=== PATIENT | female | born 1955 | race African-American/Black ===

== ENCOUNTER 2019-10-05 23:17 | Inpatient (IN) | payer MEDICAID ==
[~2019-10-05] VITALS: Ht 167.6 cm; Wt 124.7 kg
[~2019-10-05 23:17] MED LIST: AML5T PO; FAM20T PO; FLUC100T34 PO; LISI30TA36 PO; METF-370 PO
[2019-10-05 23:53] LABS: Basophils # (auto) 0.1 uL; Eosinophils # (auto) 0.3 uL; Mean Corpuscular Hemoglobin 27.9 pg (28.0-32.0); Neutrophils # (auto) 6.7 uL
[2019-10-05 23:55] LABS: Basophils % (auto) 0.9 % (0.0-2.0); Eosinophils % (auto) 3.1 % (0.0-7.0); Hematocrit 58.5 % (36.0-46.0); Lymphocytes # (auto) 1.6 uL; Lymphocytes % (auto) 17.3 % (10.0-50.0); Mean Corpuscular Hgb Conc. 32.5 g/dL (32.0-36.0); Mean Corpuscular Volume 85.7 fL (80.0-100.0); Monocytes # (auto) 0.5 uL; Monocytes % (auto) 4.9 % (0.0-12.0); Neutrophils % (auto) 73.8 % (37.0-80.0); Nucleated Red Blood Cells % 0.2 %; Platelet Count (auto) 268 10^3/uL (140-450); Red Blood Cells 6.83 10^6/uL (4.0-5.20); Red Cell Distribution Width 18.6 % (11.8-14.3); White Blood Cell 9.1 10^3/uL (4.4-10.8)
[2019-10-05 23:59] LABS: Urine Bacteria FEW /hpf (None Seen); Urine Blood Negative /uL (Negative); Urine Specific Gravity 1.022 (1.001-1.035); Urine WBC 2 /hpf (0 - 5)
[2019-10-06] LABS: Alcohol, Urine < 3.0 mg/dL (0-5); Amphetamine Screen, Urine NEGATIVE (NEGATIVE); Barbiturate Scree,Urine NEGATIVE (NEGATIVE); Benzodiazephine Screen, Urine NEGATIVE (NEGATIVE); Cannabinoid Screen, Urine NEGATIVE (NEGATIVE); Cocaine Screen, Urine NEGATIVE (NEGATIVE); Opiate Scree,Urine NEGATIVE (NEGATIVE); Phencyclidine Screen, Urine NEGATIVE (NEGATIVE)
[2019-10-06 00:13] LABS: Albumin 3.2 g/dL (3.4-5.0); Calcium 8.4 mg/dL (8.5-10.1); Potassium 4.5 mmol/L (3.5-5.1)
[2019-10-06 00:15] LABS: Bilirubin, Total 0.8 mg/dL (0.2-1.0); Total Protein 7.2 g/dL (6.4-8.2)
[2019-10-06] MEDS ORDERED: cloNIDine HCL 0.1 MG TAB PO ONE ×2 (00:15)
[2019-10-06 00:17] LABS: BUN/Creatinine Ratio 9.6
[2019-10-06] MEDS ORDERED: SODIUM CHLORIDE 0.9% 1,000 ML IV ONE ×2 (00:45→03:30)
[2019-10-06] MEDS ORDERED: InsuLIN REG 1unit/0.01ml Soln (100units/ml) IV ONE ×2 (00:45→03:30)
[2019-10-06 01:08] LABS: INR 0.99 (0.9-1.15); Partial Thromboplastin Time 28.7 sec (23.64-32.05)
[2019-10-06] MEDS ORDERED: InsuLIN REG 1unit/0.01ml Soln (100units/ml) SC ONE (05:00)
[2019-10-06] MEDS ORDERED: ONDANSETRON HCL 4 MG/2 ML VIAL IV PRN (05:45)
[2019-10-06] MEDS ORDERED: ACETAMINOPHEN 325 MG TAB PO PRN (05:45)
[2019-10-06] MEDS ORDERED: DEXTROSE (50%) 50ML SYRG IV PRN (05:45)
[2019-10-06] MEDS ORDERED: DOCUSATE SOD 100 MG CAP PO PRN (05:45)
[2019-10-06] MEDS ORDERED: HYDROmorphone HCL 2 MG/ML VL IV PRN (05:45)
[2019-10-06] MEDS: SODIUM CHLORIDE 0.9% 1,000 ML IV SCH ×2 (06:18→15:39)
[2019-10-06 07:06] LABS: BUN/Creatinine Ratio 10.9; Calcium 8.2 mg/dL (8.5-10.1); Potassium 3.3 mmol/L (3.5-5.1)
[2019-10-06] MEDS: ACCU-CHEK COMFORT CURVE STRIP VI SCH ×5 (08:21→23:51)
[2019-10-06] MEDS: InsuLIN REG 1unit/0.01ml Soln (100units/ml) SC SCH ×5 (08:21→23:51)
--- NOTE | 2019-10-06 09:00 | NUR ---
MS admit from [facility] admitted to MS after SBAR received. Patient oriented to Katerine Burdick primary RN, unit, room, bed, and unit policies regarding patient care and visiting hours. Patient weighed by bed scale and encouraged to call if they need something. All questions and concerns addressed, patient verbalized understanding. Instructed patient on POC, fall precautions and to call for assistance as needed. patient verbalized understanding. Fall precautions in place with bed in lowest locked position with call light within reach. Velasco catheter in place is patent, draining clear yellow urine. Will continue to monitor q1hr & PRN.
[2019-10-06] MEDS: HYDROcodone-ACET 5/325MG TAB PO PRN ×2 (11:14→18:51)
[2019-10-06 12:40] VITALS: BP 138/95
--- NOTE | 2019-10-06 14:31 | NUR ---
Patient resting in bed with even and unlabored respirations, no distress noted. Fall precautions in place with call light within reach.
[2019-10-06] MEDS ORDERED: POTASSIUM CHL 20 Meq TABLET PO ONE (15:00)
--- NOTE | 2019-10-06 16:11 | NUR ---
Patient sitting at side of bed with both feet on the floor. Call light within reach. Instructed patient on fall precautions and to call for assistance. Patient verbalized understanding. Instructed patient to not ambulate without staff at bedside. Patient verbalized understanding.
--- NOTE | 2019-10-06 16:15 | NUR ---
Pagealphonse TOWNSEND RE: removal of Lincoln catheter Patient is requesting that the lincoln catheter be removed. Paged Dr. Ruano to notify. Addendum: 10/06/19 at 1723 by Katerine Burdick RN Paged incorrect doctor. Paged Dr. Longo at [phone] to notify of patient's request.
--- NOTE | 2019-10-06 16:24 | NUR ---
Received consult for Flatlock Sewing Machine Operator to speak with pt who has a history of Alcohol and cocaine. The pt stated that this behavior was a long time ago. She did not wish to speak about it and states she does not need any assistance with this issue.
[2019-10-06 17:00] VITALS: BP 147/96
--- NOTE | 2019-10-06 17:23 | NUR ---
Updated MD RE: lincoln catheter Updated Dr. Longo of patient's request for Lincoln catheter to be removed due to moderate discomfort. MD verbalized understanding. Order received and read back to verify.
--- NOTE | 2019-10-06 18:39 | NUR ---
Closing note patient resting in bed with even and unlabored respirations, no distress noted. Fall precautions in place with call light within reach.
--- NOTE | 2019-10-06 19:01 | NUR ---
Velasco catheter discontinued per MD order Velasco catheter discontinued with clean technique after deflation of catheter balloon. 200ml of clear yellow urine drained from catheter bag. Patient tolerated well. Bed in lowest locked position with call light within reach. BSC placed at bedside. Instructed the patient to call for assistance with transferring to BSC. Patient verbalized understanding. Patient A&Ox4.
--- NOTE | 2019-10-06 19:39 | NUR ---
Cared endorsed SHEREE Anderson.
[2019-10-06] MEDS ORDERED: amLODIPine BESYLATE 5 MG TAB PO ONE (20:30)
[2019-10-06] MEDS ORDERED: LOSARTAN POTASSIUM 50 MG TAB PO ONE (20:30)
[2019-10-06] MEDS: GABAPENTIN 100 MG CAP PO SCH (21:20)
[2019-10-06] MEDS: INSULIN LANTUS (GLARGINE) 1 /0.01ml (100units/ml) SC SCH (21:21)
[2019-10-06 22:00] VITALS: BP 121/83
[2019-10-06] MEDS ORDERED: ATORVASTATIN 20 MG TAB PO SCH (22:00)
[2019-10-07] MEDS: HYDROcodone-ACET 5/325MG TAB PO PRN ×2 (01:47→08:29)
[2019-10-07 05:00] VITALS: BP 113/80
[2019-10-07] MEDS: ACCU-CHEK COMFORT CURVE STRIP VI SCH ×4 (05:04→16:23)
[2019-10-07] MEDS: GABAPENTIN 100 MG CAP PO SCH ×2 (05:04→13:52)
[2019-10-07] MEDS: InsuLIN REG 1unit/0.01ml Soln (100units/ml) SC SCH ×4 (05:04→16:27)
--- NOTE | 2019-10-07 07:55 | NUR ---
Morning note Patient resting in bed with even and unlabored respirations, no distress noted. Instructed patient on POC, fall precautions and to call for assistance. Patient verbalized understanding. Fall precautions in place with bed in lowest locked position with x2 side rails up and call light within reach. Will continue to monitor q1hr & PRN.
[2019-10-07] MEDS: INSULIN LANTUS (GLARGINE) 1 /0.01ml (100units/ml) SC SCH (08:30)
[2019-10-07 08:45] VITALS: BP 131/99
[2019-10-07] MEDS ORDERED: LOSARTAN POTASSIUM 50 MG TAB PO SCH (10:00)
[2019-10-07] MEDS ORDERED: amLODIPine BESYLATE 5 MG TAB PO SCH (10:00)
[2019-10-07 13:00] VITALS: BP 127/81
[2019-10-07] MEDS ORDERED: GAB100C PO (13:19)
[2019-10-07] MEDS ORDERED: INSLANTI SC (13:19)
[2019-10-07] MEDS ORDERED: AML5T PO (13:19)
[2019-10-07] MEDS ORDERED: METF-490 PO (13:19)
[2019-10-07] MEDS ORDERED: LOSA-69 PO (13:19)
[2019-10-07] MEDS ORDERED: ASPI-378 PO (13:22)
[2019-10-07] MEDS ORDERED: ATOR40TA52 PO (13:23)
--- NOTE | 2019-10-07 16:28 | NUR ---
Discharge Discharge education and paperwork provided to the patient per MD order. Diabetic education provided to the patient. Patient verbalized understanding. Instructed patient to schedule a follow up appointment with PCP. Patient verbalized understanding. IV removed with clean technique, catheter intact. Dressing applied. patient tolerated well, no trauma to site. Instructed patient to collect all personal belongings. Patient verbalized understanding. patient reports driving self to the hospital. Patient's car is in the parking lot per the patient. Respirations even and unlabored, no distress noted.
[2019-10-07 16:55] VITALS: BP 135/89
--- NOTE | 2019-10-07 16:58 | NUR ---
Patient taken to private vehicle via wheelchair by staff member. Patient reports having all personal belongings. Respirations are even and unlabored, no distress noted.
== END 2019-10-07 16:50 | disposition home or self-care (01) | DRG 420 ==
LOC: ER 23:19 → OVERFLOW 23:20 → WEST WING 10-06 08:49
PROVIDERS: ADMIT Hospitalist; ATTEND Internal Medicine Nephrology
DX: E11.65 Type 2 diabetes mellitus with hyperglycemia (principal); J96.01 Acute respiratory failure with hypoxia; E66.01 Morbid (severe) obesity due to excess calories; D75.1 Secondary polycythemia; Z68.41 Body mass index [BMI] 40.0-44.9, adult; E11.42 Type 2 diabetes mellitus with diabetic polyneuropathy; E86.0 Dehydration; I10 Essential (primary) hypertension; F17.210 Nicotine dependence, cigarettes, uncomplicated; E87.6 Hypokalemia; Z79.4 Long term (current) use of insulin; Z91.19 Patient's noncompliance with other medical treatment and regimen
CPT/HCPCS: 36415; 36600; 80048; 80053; 80307; 81001; 82010; 82805; 82962; 83036; 83880; 84484; 85025; 85610; 85730; 96361; 96374; 96375; G0378; J1815

== ENCOUNTER 2020-02-02 13:56 | Emergency (ER) | payer MEDICAID ==
[~2020-02-02] VITALS: Ht 167.6 cm; Wt 110.2 kg
[~2020-02-02 13:56] MED LIST changes: -FAM20T PO; -FLUC100T34 PO; +GAB100C PO; +INSLANTI SC; -LISI30TA36 PO; +LOSA-69 PO; -METF-370 PO; +METF-490 PO
[2020-02-02 14:08] VITALS: BP 133/87
[2020-02-02 14:51] LABS: Basophils # (auto) 0.1 10 ^3/uL (0-0.2); Basophils % (auto) 0.7 % (0.0-2.0); Hemoglobin 18.6 g/dL (12.2-16.2); Lymphocytes # (auto) 2.2 10 ^3/uL (0.4-5.4); Monocytes # (auto) 0.4 10 ^3/uL (0-1.3); Monocytes % (auto) 4.4 % (0.0-12.0); Neutrophils # (auto) 6.9 10 ^3/uL (1.6-8.6); Nucleated Red Blood Cells % 0.2 %
[2020-02-02 14:53] LABS: Eosinophils # (auto) 0.3 10 ^3/uL (0-0.8); Eosinophils % (auto) 2.6 % (0.0-7.0); Hematocrit 54.2 % (36.0-46.0); Lymphocytes % (auto) 22.6 % (10.0-50.0); Mean Corpuscular Hemoglobin 28.9 pg (28.0-32.0); Mean Corpuscular Hgb Conc. 34.2 g/dL (32.0-36.0); Mean Corpuscular Volume 84.4 fL (80.0-100.0); Neutrophils % (auto) 69.7 % (37.0-80.0); Platelet Count (auto) 320 10^3/uL (140-450); Red Blood Cells 6.43 10^6/uL (4.0-5.20); White Blood Cell 9.9 10^3/uL (4.4-10.8)
[2020-02-02 15:09] LABS: Anion Gap 7 (5-15); Blood Urea Nitrogen 14 mg/dL (7-18); Calcium 8.6 mg/dL (8.5-10.1); Carbon Dioxide 26 mmol/L (21-32); Chloride 107 mmol/L (98-107); Glucose 242 mg/dL (74-106); Potassium 3.7 mmol/L (3.5-5.1); Sodium 140 mmol/L (136-145)
[2020-02-02 15:16] LABS: Alanine Aminotransferase 18 U/L (13-56); Alkaline Phosphatase 84 U/L (45-117); Aspartate Aminotransferase 12 U/L (15-37); Bilirubin, Total 0.7 mg/dL (0.2-1.0); GFR African American 72 mL/min; GFR Non-African American 59 mL/min; Total Protein 6.9 g/dL (6.4-8.2)
[2020-02-02] MEDS ORDERED: SODIUM CHLORIDE 0.9% 1,000 ML IV ONE (16:39)
== END 2020-02-02 17:58 | disposition left against medical advice (07) ==
LOC: ER 13:58
DX: I10 Essential (primary) hypertension (principal); E11.65 Type 2 diabetes mellitus with hyperglycemia; E86.0 Dehydration; E66.01 Morbid (severe) obesity due to excess calories; F17.210 Nicotine dependence, cigarettes, uncomplicated; Z68.39 Body mass index [BMI] 39.0-39.9, adult; Z79.4 Long term (current) use of insulin; Z79.899 Other long term (current) drug therapy
CPT/HCPCS: 36415; 70450; 80053; 82962; 84484; 85025

== ENCOUNTER 2020-04-25 12:32 | Inpatient (IN) | payer MEDICARE, MEDICAID ==
[~2020-04-25] VITALS: Ht 170.2 cm; Wt 128.8 kg
[2020-04-25 14:50] LABS: Basophils # (auto) 0.1 10 ^3/uL (0-0.2); Basophils % (auto) 1.1 % (0.0-2.0); Lymphocytes % (auto) 21.9 % (10.0-50.0)
[2020-04-25 14:55] LABS: Eosinophils # (auto) 0.4 10 ^3/uL (0-0.8); Eosinophils % (auto) 3.6 % (0.0-7.0); Hemoglobin 20.3 g/dL (12.2-16.2); Lymphocytes # (auto) 2.2 10 ^3/uL (0.4-5.4); Mean Corpuscular Hemoglobin 27.8 pg (28.0-32.0); Mean Corpuscular Hgb Conc. 33.4 g/dL (32.0-36.0); Mean Corpuscular Volume 83.2 fL (80.0-100.0); Monocytes # (auto) 0.5 10 ^3/uL (0-1.3); Monocytes % (auto) 5.4 % (0.0-12.0); Neutrophils # (auto) 6.8 10 ^3/uL (1.6-8.6); Nucleated Red Blood Cells % 0.2 %; Platelet Count (auto) 411 10^3/uL (140-450); Red Blood Cells 7.31 10^6/uL (4.0-5.20); Red Cell Distribution Width 15.9 % (11.8-14.3)
[2020-04-25 14:56] LABS: Hematocrit 60.8 % (36.0-46.0)
[2020-04-25] MEDS ORDERED: ONDANSETRON HCL 4 MG/2 ML VIAL IV ONE (15:15)
[2020-04-25] MEDS ORDERED: SODIUM CHLORIDE 0.9% 1,000 ML IVB ONE (15:15)
[2020-04-25] MEDS ORDERED: MORPHINE SULF INJ 2 MG/ML SYRINGE 1ML IV ONE (15:15)
[2020-04-25 15:33] LABS: Potassium 3.9 mmol/L (3.5-5.1); Sodium 137 mmol/L (136-145)
[2020-04-25 15:34] LABS: Alanine Aminotransferase 50 U/L (13-56); Alkaline Phosphatase 101 U/L (45-117); Anion Gap 7 (5-15); Aspartate Aminotransferase 33 U/L (15-37); BUN/Creatinine Ratio 10.7; Blood Urea Nitrogen 12 mg/dL (7-18); Calcium 9.2 mg/dL (8.5-10.1); Carbon Dioxide 26 mmol/L (21-32); Chloride 104 mmol/L (98-107); GFR African American 63 mL/min; GFR Non-African American 52 mL/min; Glucose 127 mg/dL (74-106)
[2020-04-25 15:35] LABS: Albumin 3.6 g/dL (3.4-5.0); Bilirubin, Total 0.9 mg/dL (0.2-1.0); Total Protein 8.3 g/dL (6.4-8.2)
[2020-04-25 16:24] LABS: Urine Bacteria FEW /hpf (None Seen); Urine Blood Negative /uL (Negative); Urine Specific Gravity 1.015 (1.001-1.035); Urine WBC 71 /hpf (0 - 5)
[2020-04-25 16:25] LABS: INR 1.17 (0.9-1.15); Partial Thromboplastin Time 34.4 sec (23.64-32.05)
[2020-04-25 16:32] LABS: Magnesium 2.7 mg/dL (1.6-2.6)
[2020-04-25] MEDS ORDERED: cefTRIAXone 1GM/50ML D5W 50 ML IV ONE ×2 (17:30→18:15)
[2020-04-25] MEDS ORDERED: MORPHINE SULF INJ 2 MG/ML SYRINGE 1ML IV PRN ×2 (18:15)
[2020-04-25] MEDS ORDERED: LABETALOL HCL 5 MG/ML ML 20ML VIAL IV PRN (18:15)
[2020-04-25] MEDS ORDERED: DEXTROSE (50%) 50ML SYRG IV PRN (18:15)
[2020-04-25] MEDS ORDERED: NITROGLYCERIN 0.4 MG SL TAB SL PRN (18:15)
[2020-04-25] MEDS: SODIUM CHLORIDE 0.9% 1,000 ML IV SCH (18:43)
[2020-04-25] MEDS: metroNIDAZOLE 500MG/100ML 100 ML IV SCH (18:43)
[2020-04-25] MEDS: PROMETHAZINE HCL 25 MG/ML 1ML IV PRN (20:27)
[2020-04-25] MEDS: MORPHINE SULF INJ 2 MG/ML SYRINGE 1ML IV PRN (20:27)
[2020-04-25 23:02] VITALS: BP 142/98
--- NOTE | 2020-04-25 23:02 | NUR ---
Telemetry admit from ER Patient admitted to Telemetry unit. Patient oriented to primary RN, unit, room, bed, and unit policies regarding patient care and visiting hours. Patient now on continuous telemetry monitoring, tele box # 41 and telemetry reading on arrival to unit is sinus rhythm. Patient weighed by bedscale and encouraged to call if they need something. All questions and concerns addressed, patient verbalized understanding. Safety precautions in place, bed is in lowest position and locked, bed rails 2x. Call light and bedside table are within reach. Bedside commode at bedside.
[2020-04-25] MEDS: FAMOTIDINE 20 MG TAB PO SCH (23:24)
[2020-04-26] VITALS: BP 142/98
[2020-04-26] MEDS: ACCU-CHEK COMFORT CURVE STRIP VI SCH ×4 (00:11→18:00)
[2020-04-26] MEDS: InsuLIN REG 1unit/0.01ml Soln (100units/ml) SC SCH ×5 (00:36→18:00)
[2020-04-26] MEDS ORDERED: LISI2.5T47 PO (01:52)
[2020-04-26] MEDS ORDERED: FAMO-12 PO (01:52)
[2020-04-26] MEDS: metroNIDAZOLE 500MG/100ML 100 ML IV SCH ×3 (02:10→18:50)
[2020-04-26] MEDS: MORPHINE SULF INJ 2 MG/ML SYRINGE 1ML IV PRN ×3 (03:45→23:30)
[2020-04-26] MEDS: SODIUM CHLORIDE 0.9% 1,000 ML IV SCH (04:17)
[2020-04-26 05:00] VITALS: BP 147/85
[2020-04-26 07:14] LABS: Potassium 3.7 mmol/L (3.5-5.1)
[2020-04-26 07:18] LABS: Basophils # (auto) 0.1 10 ^3/uL (0-0.2); Eosinophils # (auto) 0.4 10 ^3/uL (0-0.8); Lymphocytes # (auto) 1.8 10 ^3/uL (0.4-5.4); Lymphocytes % (auto) 18.3 % (10.0-50.0); Neutrophils # (auto) 6.9 10 ^3/uL (1.6-8.6); Platelet Count (auto) 366 10^3/uL (140-450)
[2020-04-26 07:19] LABS: Amylase 31 U/L (25-115); Lipase 148 U/L (73-393)
[2020-04-26 07:20] LABS: Basophils % (auto) 0.8 % (0.0-2.0); Eosinophils % (auto) 4.5 % (0.0-7.0); Hemoglobin 18.9 g/dL (12.2-16.2); Mean Corpuscular Hgb Conc. 33.8 g/dL (32.0-36.0); Mean Corpuscular Volume 82.9 fL (80.0-100.0); Monocytes # (auto) 0.5 10 ^3/uL (0-1.3); Monocytes % (auto) 4.9 % (0.0-12.0); Neutrophils % (auto) 71.5 % (37.0-80.0); Nucleated Red Blood Cells % 0.1 %; Red Blood Cells 6.77 10^6/uL (4.0-5.20); Red Cell Distribution Width 15.5 % (11.8-14.3); White Blood Cell 9.7 10^3/uL (4.4-10.8)
[2020-04-26 07:21] LABS: Hematocrit 56.1 % (36.0-46.0)
[2020-04-26 07:22] LABS: Albumin 3.2 g/dL (3.4-5.0); BUN/Creatinine Ratio 11.2; Calcium 8.5 mg/dL (8.5-10.1); Total Protein 7.2 g/dL (6.4-8.2)
--- NOTE | 2020-04-26 07:25 | NUR ---
End of Shift Note Endorsed care to dayshift RN. At this time patient has no s/s of distress or SOB. Patient responsive to name and touch, no complaints.
--- NOTE | 2020-04-26 07:55 | NUR ---
Opening Shift Note Assumed care of patient, asleep but easily aroused. No S/S of distress/SOB or pain. Will follow up with instructions on POC and to call for assist PRN, will continue to monitor for changes Q1hr and PRN.
[2020-04-26 09:00] VITALS: BP 147/93
[2020-04-26] MEDS: cefTRIAXone 1GM/50ML D5W 50 ML IV SCH (09:04)
[2020-04-26] MEDS: FAMOTIDINE 20 MG TAB PO SCH (09:28)
[2020-04-26] MEDS: PROMETHAZINE HCL 25 MG/ML 1ML IV PRN ×2 (09:29→23:30)
--- NOTE | 2020-04-26 10:38 | NUR ---
Hospitalist Gailing Dr. Aiken at bedside.
[2020-04-26] MEDS ORDERED: LABETALOL HCL 5 MG/ML ML 20ML VIAL IV PRN (10:45)
[2020-04-26 13:00] VITALS: BP 151/92
--- NOTE | 2020-04-26 14:30 | NUR ---
Off Unit Patient brought to pre-op for procedure.
[2020-04-26] MEDS ORDERED: ceFAZolin 1GM/50ML 50 ML IV ONE (14:45)
[2020-04-26] MEDS ORDERED: SUCCINYLCHOLINE CHLORIDE 20 MG/ML 10ML VIAL IV ONE (15:20)
[2020-04-26] MEDS ORDERED: MIDAZOLAM HCL 1MG/1ML-2 ML VIAL ONE (15:47)
[2020-04-26] MEDS ORDERED: MEPERIDINE HCL (25 MG/ML) 1ML VIAL ONE (15:47)
[2020-04-26] MEDS ORDERED: fentaNYL CITRATE 100 MCG/2 ML VL ONE (15:47)
[2020-04-26] MEDS ORDERED: PROPOFOL 10 MG/ML 20 ML IV ONE (16:08)
[2020-04-26] MEDS ORDERED: DexAMETHasone SOD PHOS 10MG/1ML VIAL INJ ONE (16:08)
[2020-04-26] MEDS ORDERED: ESMOLOL HCL 10 ML IV ONE (16:08)
[2020-04-26] MEDS ORDERED: hydrALAZINE HCL 20 MG/ML VL ONE (16:11)
[2020-04-26] MEDS ORDERED: POVIDONE IODINE 10 % TOPICAL OINT 30GM TOP ONE (16:12)
[2020-04-26] MEDS ORDERED: LABETALOL HCL 5 MG/ML 4ML SYRINGE IV PRN (17:00)
[2020-04-26] MEDS ORDERED: MIDAZOLAM HCL 1MG/1ML-2 ML VIAL IV PRN (17:00)
[2020-04-26] MEDS ORDERED: ONDANSETRON HCL 4 MG/2 ML VIAL IV PRN (17:00)
[2020-04-26] MEDS ORDERED: hydrALAZINE HCL 20 MG/ML VL IV PRN (17:00)
[2020-04-26] MEDS ORDERED: ePHEDrine SULFATE 50 MG/ML AMP IV PRN (17:00)
[2020-04-26] MEDS ORDERED: MORPHINE SULFATE 4 MG/ML SYR/VIAL IV PRN (17:00)
[2020-04-26] MEDS ORDERED: HYDROmorphone HCL 2 MG/ML VL IV PRN (17:00)
[2020-04-26] MEDS ORDERED: SODIUM CHLORIDE 0.9% 1,000 ML IV ONE (18:00)
--- NOTE | 2020-04-26 18:15 | NUR ---
On Unit Patient returned to unit from PACU. Patient is awake but drowsy. Three incisions to abdomen noted with ANDREW drain attached to right incision. SCD's in place. Call light placed within reach and patient was encouraged to call for assistance. Bed alarm on for safety. Will continue to monitor.
--- NOTE | 2020-04-26 19:20 | NUR ---
Opening Shift Note Assumed care of patient, awake, alert and oriented x4, on 2L of oxygen via NC with even and unlabored respirations, no S/S of distress/SOB or pain. Patient able to turn independently, bed in lowest locked position, side rails up x2, and call light within reach. Instructed on POC and to call for assist PRN, will continue to monitor for changes Q1hr and PRN.
[2020-04-26 22:00] VITALS: BP 141/80
[2020-04-27] MEDS: ACCU-CHEK COMFORT CURVE STRIP VI SCH ×4 (00:23→17:35)
[2020-04-27] MEDS: InsuLIN REG 1unit/0.01ml Soln (100units/ml) SC SCH ×4 (00:24→17:43)
[2020-04-27] MEDS: metroNIDAZOLE 500MG/100ML 100 ML IV SCH ×3 (02:20→17:35)
[2020-04-27 05:00] VITALS: BP 144/90
--- NOTE | 2020-04-27 05:00 | NUR ---
ANDREW DRAIN 55ml of serosanguineous fluid removed from ANDREW drain.
[2020-04-27] MEDS: HYDROcodone-ACET 5/325MG TAB PO PRN ×3 (06:15→18:37)
[2020-04-27 07:00] LABS: Basophils # (auto) 0 10 ^3/uL (0-0.2); Basophils % (auto) 0.3 % (0.0-2.0); Eosinophils # (auto) 0 10 ^3/uL (0-0.8); Monocytes # (auto) 0.3 10 ^3/uL (0-1.3); Monocytes % (auto) 2.1 % (0.0-12.0); Neutrophils # (auto) 14.7 10 ^3/uL (1.6-8.6); Nucleated Red Blood Cells % 0.1 %; White Blood Cell 16.1 10^3/uL (4.4-10.8)
[2020-04-27 07:05] LABS: Potassium 4.2 mmol/L (3.5-5.1)
[2020-04-27 07:06] LABS: Hemoglobin 19.1 g/dL (12.2-16.2); Lymphocytes % (auto) 6.1 % (10.0-50.0); Mean Corpuscular Volume 82.2 fL (80.0-100.0); Neutrophils % (auto) 91.5 % (37.0-80.0); Platelet Count (auto) 384 10^3/uL (140-450); Red Blood Cells 6.83 10^6/uL (4.0-5.20); Red Cell Distribution Width 15.4 % (11.8-14.3)
[2020-04-27 07:08] LABS: Hematocrit 56.2 % (36.0-46.0)
[2020-04-27 07:10] LABS: BUN/Creatinine Ratio 16.7; Calcium 8.8 mg/dL (8.5-10.1)
[2020-04-27 09:00] VITALS: BP 136/84
[2020-04-27] MEDS: FAMOTIDINE (10MG/ML) 2ML VL IV SCH (09:08)
[2020-04-27] MEDS: cefTRIAXone 1GM/50ML D5W 50 ML IV SCH (09:08)
[2020-04-27] MEDS: SODIUM CHLORIDE 0.9% 1,000 ML IV SCH (12:17)
[2020-04-27 13:00] VITALS: BP 149/93
[2020-04-27] MEDS ORDERED: ETOMIDATE (2MG/ML) 20ML VIAL IV ONE (15:25)
[2020-04-27] MEDS ORDERED: GLYCOPYRROLATE 0.2 MG/ML 1ML VIAL IV ONE (15:25)
[2020-04-27] MEDS ORDERED: METOCLOPRAMIDE HCL 5MG/ml INJ 2ml VIAL IV ONE (15:25)
[2020-04-27] MEDS ORDERED: NEOSTIGMINE 1 MG/ML INJ (10mg/10ML VIAL) IV ONE (15:25)
[2020-04-27 16:50] VITALS: BP 145/91
--- NOTE | 2020-04-27 18:00 | NUR ---
ANDREW Drain Emptied 30mls serosanguineous fluid. Patient taught how to empty drain, reinforcement needed.
--- NOTE | 2020-04-27 19:25 | NUR ---
Opening Shift Note Assumed care of patient, awake, alert and oriented x4, on ward air with even and unlabored respirations, no S/S of distress/SOB or pain. Patient able to turn in bed independently, bed in lowest locked position, side rails up x2, and call light within reach. Instructed on POC and to call for assist PRN, will continue to monitor for changes Q1hr and PRN.
[2020-04-27 22:00] VITALS: BP 145/84
[2020-04-27] MEDS: MORPHINE SULF INJ 2 MG/ML SYRINGE 1ML IV PRN (23:07)
[2020-04-28] MEDS: SODIUM CHLORIDE 0.9% 1,000 ML IV SCH (00:50)
[2020-04-28] MEDS: metroNIDAZOLE 500MG/100ML 100 ML IV SCH (02:20)
[2020-04-28] MEDS: ACCU-CHEK COMFORT CURVE STRIP VI SCH ×5 (04:44→23:38)
[2020-04-28 05:00] VITALS: BP 138/82
--- NOTE | 2020-04-28 06:00 | NUR ---
ANDREW DRAIN 65ml of serosanguineous fluid removed from ANDREW drain.
[2020-04-28] MEDS: InsuLIN REG 1unit/0.01ml Soln (100units/ml) SC SCH ×5 (06:35→23:38)
[2020-04-28] MEDS: PROMETHAZINE HCL 25 MG/ML 1ML IV PRN ×2 (06:56→13:49)
[2020-04-28 07:08] LABS: Potassium 3.8 mmol/L (3.5-5.1)
[2020-04-28 07:14] LABS: Albumin 3.2 g/dL (3.4-5.0); BUN/Creatinine Ratio 14.3; Bilirubin, Total 0.8 mg/dL (0.2-1.0); Calcium 8.5 mg/dL (8.5-10.1); Total Protein 7.1 g/dL (6.4-8.2)
[2020-04-28 07:22] LABS: Basophils # (auto) 0.1 10 ^3/uL (0-0.2); Eosinophils # (auto) 0.2 10 ^3/uL (0-0.8)
[2020-04-28 07:24] LABS: Basophils % (auto) 0.7 % (0.0-2.0); Eosinophils % (auto) 1.5 % (0.0-7.0); Hematocrit 55.9 % (36.0-46.0); Hemoglobin 18.5 g/dL (12.2-16.2); Lymphocytes # (auto) 2.2 10 ^3/uL (0.4-5.4); Lymphocytes % (auto) 18.1 % (10.0-50.0); Mean Corpuscular Hemoglobin 27.5 pg (28.0-32.0); Mean Corpuscular Volume 83.2 fL (80.0-100.0); Monocytes # (auto) 0.5 10 ^3/uL (0-1.3); Monocytes % (auto) 3.8 % (0.0-12.0); Neutrophils # (auto) 9.1 10 ^3/uL (1.6-8.6); Neutrophils % (auto) 75.9 % (37.0-80.0); Platelet Count (auto) 374 10^3/uL (140-450); Red Blood Cells 6.72 10^6/uL (4.0-5.20); Red Cell Distribution Width 15.8 % (11.8-14.3)
[2020-04-28 08:00] VITALS: BP 160/96
[2020-04-28] MEDS: cefTRIAXone 1GM/50ML D5W 50 ML IV SCH (09:31)
[2020-04-28] MEDS: FAMOTIDINE (10MG/ML) 2ML VL IV SCH (09:31)
[2020-04-28] MEDS ORDERED: DOCUSATE SOD 100 MG CAP PO ONE ×2 (11:00→14:30)
[2020-04-28 12:00] VITALS: BP 164/97
[2020-04-28] MEDS: metroNIDAZOLE 500 MG TAB PO SCH ×2 (13:49→22:00)
[2020-04-28 17:01] VITALS: BP 158/92
[2020-04-28 22:00] VITALS: BP 148/83
[2020-04-28] MEDS: FAMOTIDINE 20 MG TAB PO SCH (22:00)
[2020-04-28] MEDS: HYDROcodone-ACET 5/325MG TAB PO PRN (22:28)
--- NOTE | 2020-04-28 22:29 | NUR ---
PATIENT'S ANDREW DRAIN EMPTIED 40 ML OF SEROSANGUINEOUS EMPTIED AT THIS TIME.
[2020-04-29] MEDS: HYDROcodone-ACET 5/325MG TAB PO PRN (04:59)
[2020-04-29 05:00] VITALS: BP 155/90
[2020-04-29] MEDS: InsuLIN REG 1unit/0.01ml Soln (100units/ml) SC SCH ×2 (06:00→12:16)
[2020-04-29 06:05] LABS: Basophils # (auto) 0.1 10 ^3/uL (0-0.2); Hematocrit 55.7 % (36.0-46.0); Hemoglobin 18.8 g/dL (12.2-16.2); Lymphocytes # (auto) 2.3 10 ^3/uL (0.4-5.4); Monocytes % (auto) 5.3 % (0.0-12.0)
[2020-04-29 06:07] LABS: Basophils % (auto) 0.8 % (0.0-2.0); Eosinophils # (auto) 0.4 10 ^3/uL (0-0.8); Lymphocytes % (auto) 23.2 % (10.0-50.0); Mean Corpuscular Hemoglobin 27.8 pg (28.0-32.0); Mean Corpuscular Hgb Conc. 33.8 g/dL (32.0-36.0); Mean Corpuscular Volume 82.2 fL (80.0-100.0); Monocytes # (auto) 0.5 10 ^3/uL (0-1.3); Neutrophils # (auto) 6.7 10 ^3/uL (1.6-8.6); Neutrophils % (auto) 66.7 % (37.0-80.0); Nucleated Red Blood Cells % 0.9 %; Platelet Count (auto) 337 10^3/uL (140-450); Red Blood Cells 6.77 10^6/uL (4.0-5.20); Red Cell Distribution Width 15.7 % (11.8-14.3)
[2020-04-29] MEDS: ACCU-CHEK COMFORT CURVE STRIP VI SCH ×2 (06:14→12:15)
[2020-04-29] MEDS: metroNIDAZOLE 500 MG TAB PO SCH ×2 (06:14→14:00)
[2020-04-29 06:21] LABS: Potassium 3.9 mmol/L (3.5-5.1)
[2020-04-29 06:34] LABS: BUN/Creatinine Ratio 13.6; Calcium 8.8 mg/dL (8.5-10.1)
--- NOTE | 2020-04-29 08:00 | NUR ---
Opening Shift Note Assumed care of patient, awake, alert, and oriented. No S/S of distress/SOB or pain. Bed in lowest/locked position, bed rails up x2, call light within reach. Instructed on POC and to call for assist PRN. Will continue to monitor for changes Q1hr and PRN.
[2020-04-29 09:00] VITALS: BP 136/95
[2020-04-29] MEDS: cefTRIAXone 1GM/50ML D5W 50 ML IV SCH (10:00)
[2020-04-29] MEDS: FAMOTIDINE 20 MG TAB PO SCH (10:01)
--- NOTE | 2020-04-29 11:40 | NUR ---
MD ROUNDS DR COTTON AT BEDSIDE DISCUSSING POC WITH PATIENT. NEW ORDERS RECEIVED/ WILL CARRY OUT. WILL CONTINUE TO MONITOR
[2020-04-29 13:00] VITALS: BP 168/113
--- NOTE | 2020-04-29 16:11 | NUR ---
Discharge instructions given as ordered. Encourage to follow up with PMD as instructed. All questions and concerns addressed. Patient verbalized understanding. IV removed with catheter intact, pressure dressing applied. Telemetry unit returned to ICU. Patient taken to vehicle via wheelchair with all personal belongings, accompanied by staff. No distress noted at time of departure.
== END 2020-04-29 16:14 | disposition home or self-care (01) | DRG 854 ==
LOC: ER 12:32 → TELE 12:33 → TELE-CENTR 22:54
PROVIDERS: ADMIT Internal Medicine; ATTEND Internal Medicine
PROC: 0FT44ZZ Resection of Gallbladder, Percutaneous Endoscopic Approach (ICD-10-PCS; principal; 2020-04-26 15:35)
DX: A41.9 Sepsis, unspecified organism (principal); N39.0 Urinary tract infection, site not specified; Z68.41 Body mass index [BMI] 40.0-44.9, adult; K80.10 Calculus of gallbladder with chronic cholecystitis without obstruction; E11.9 Type 2 diabetes mellitus without complications; F17.210 Nicotine dependence, cigarettes, uncomplicated; I10 Essential (primary) hypertension; E66.01 Morbid (severe) obesity due to excess calories; D75.1 Secondary polycythemia; D25.9 Leiomyoma of uterus, unspecified; R16.2 Hepatomegaly with splenomegaly, not elsewhere classified; Z82.49 Family history of ischemic heart disease and other diseases of the circulatory system
CPT/HCPCS: 36415; 71045; 74176; 76705; 80048; 80053; 81001; 82150; 82247; 82962; 83036; 83690; 83735; 84484; 85025; 85610; 85730; 86850; 86900; 86901; 87070; 87075; 87086; 87205; 93005; G0378; J0330; J0690; J0696; J1100; J1815; J2250; J2405; J2704; J3490

== ENCOUNTER → 2020-05-04 | Emergency (ER) | payer MEDICARE, MEDICAID ==
[~2020-05-04] MED LIST changes: +FAMO-12 PO; +LISI2.5T47 PO; +cefTRIAXone 1GM/50ML D5W 50 ML IV ONE
[2020-05-04 13:22] LABS: Basophils # (auto) 0.1 10 ^3/uL (0-0.2); Eosinophils # (auto) 0.3 10 ^3/uL (0-0.8); Eosinophils % (auto) 2.9 % (0.0-7.0); Hemoglobin 19.4 g/dL (12.2-16.2); Monocytes # (auto) 0.5 10 ^3/uL (0-1.3)
[2020-05-04 13:24] LABS: Basophils % (auto) 0.7 % (0.0-2.0); Hematocrit 57.9 % (36.0-46.0); Lymphocytes # (auto) 1.8 10 ^3/uL (0.4-5.4); Mean Corpuscular Hemoglobin 27.4 pg (28.0-32.0); Mean Corpuscular Hgb Conc. 33.5 g/dL (32.0-36.0); Mean Corpuscular Volume 81.6 fL (80.0-100.0); Monocytes % (auto) 4.4 % (0.0-12.0); Neutrophils # (auto) 8.2 10 ^3/uL (1.6-8.6); Nucleated Red Blood Cells % 0.9 %; Platelet Count (auto) 345 10^3/uL (140-450); Red Blood Cells 7.09 10^6/uL (4.0-5.20); Red Cell Distribution Width 15.4 % (11.8-14.3); White Blood Cell 10.9 10^3/uL (4.4-10.8)
[2020-05-04 13:39] LABS: Albumin 3.1 g/dL (3.4-5.0); Calcium 8.7 mg/dL (8.5-10.1); Potassium 3.6 mmol/L (3.5-5.1)
[2020-05-04 13:45] LABS: BUN/Creatinine Ratio 10.3; Bilirubin, Total 0.8 mg/dL (0.2-1.0); Total Protein 7.2 g/dL (6.4-8.2)
[2020-05-04 16:06] VITALS: BP 138/96
== END | disposition home or self-care (01) ==
LOC: ER 11:57
DX: Z48.01 Encounter for change or removal of surgical wound dressing (principal); E86.0 Dehydration; E66.01 Morbid (severe) obesity due to excess calories; E11.9 Type 2 diabetes mellitus without complications; I10 Essential (primary) hypertension; F17.210 Nicotine dependence, cigarettes, uncomplicated
CPT/HCPCS: 36415; 74176; 80053; 85025; 96365; 99284; J0696

== ENCOUNTER 2020-08-13 18:36 | Emergency (ER) | payer MEDICARE, MEDICAID ==
[~2020-08-13] VITALS: Ht 170.2 cm; Wt 122.0 kg
[~2020-08-13 18:36] MED LIST changes: -cefTRIAXone 1GM/50ML D5W 50 ML IV ONE
[2020-08-13 20:05] LABS: Basophils # (auto) 0.1 10 ^3/uL (0-0.2); Lymphocytes % (auto) 17.9 % (10.0-50.0); Mean Corpuscular Hemoglobin 24.6 pg (28.0-32.0); Mean Corpuscular Volume 76.7 fL (80.0-100.0); Monocytes # (auto) 0.5 10 ^3/uL (0-1.3); Nucleated Red Blood Cells % 0.8 %
[2020-08-13 20:07] LABS: Basophils % (auto) 0.9 % (0.0-2.0); Eosinophils # (auto) 0.3 10 ^3/uL (0-0.8); Eosinophils % (auto) 2.4 % (0.0-7.0); Hemoglobin 19.4 g/dL (12.2-16.2); Lymphocytes # (auto) 2.5 10 ^3/uL (0.4-5.4); Monocytes % (auto) 3.7 % (0.0-12.0); Neutrophils # (auto) 10.3 10 ^3/uL (1.6-8.6); Neutrophils % (auto) 75.1 % (37.0-80.0); Platelet Count (auto) 350 10^3/uL (140-450); Red Blood Cells 7.91 10^6/uL (4.0-5.20); White Blood Cell 13.7 10^3/uL (4.4-10.8)
[2020-08-13 20:16] LABS: Hematocrit 60.7 % (36.0-46.0); Red Cell Distribution Width 21.9 % (11.8-14.3)
[2020-08-13 20:21] LABS: Albumin 3.6 g/dL (3.4-5.0); Amylase 28 U/L (25-115); Anion Gap 6 (5-15); Blood Urea Nitrogen 15 mg/dL (7-18); Calcium 9.3 mg/dL (8.5-10.1); Carbon Dioxide 28 mmol/L (21-32); Chloride 101 mmol/L (98-107); Glucose 316 mg/dL (74-106); Lipase 310 U/L (73-393); Magnesium 2.4 mg/dL (1.6-2.6); Potassium 3.6 mmol/L (3.5-5.1); Sodium 135 mmol/L (136-145)
[2020-08-13 20:30] LABS: Alanine Aminotransferase 19 U/L (13-56); Alkaline Phosphatase 123 U/L (45-117); Aspartate Aminotransferase 8 U/L (15-37); BUN/Creatinine Ratio 11.3; Bilirubin, Total 0.8 mg/dL (0.2-1.0); GFR African American 51 mL/min; GFR Non-African American 43 mL/min; Total Protein 7.9 g/dL (6.4-8.2)
[2020-08-13] MEDS ORDERED: PANTOPRAZOLE 40 MG/10 ML VIAL INJ IV ONE (21:30)
[2020-08-13] MEDS ORDERED: ONDANSETRON HCL 4 MG/2 ML VIAL IV ONE (21:30)
[2020-08-13] MEDS ORDERED: SODIUM CHLORIDE 0.9% 1,000 ML IV ONE ×2 (21:30→23:30)
[2020-08-13] MEDS ORDERED: ACETAMINOPHEN 325 MG TAB PO ONE (21:30)
[2020-08-13] MEDS ORDERED: HYDROcodone-ACET 10/325MG TAB PO ONE (21:30)
[2020-08-13 22:26] LABS: Urine Bacteria FEW /hpf (None Seen); Urine Blood 1+ /uL (Negative); Urine Hyaline Cast MOD /lpf (0 - 2); Urine Mucus FEW (None Seen); Urine Specific Gravity 1.028 (1.001-1.035); Urine WBC 156 /hpf (0 - 5)
[2020-08-13] MEDS ORDERED: CIPROFLOXACIN 400MG/200ML 200 ML IV ONE (23:00)
[2020-08-13 23:09] LABS: Alcohol, Urine < 3.0 mg/dL (0-10); Amphetamine Screen, Urine NEGATIVE (NEGATIVE); Barbiturate Scree,Urine NEGATIVE (NEGATIVE); Benzodiazephine Screen, Urine NEGATIVE (NEGATIVE); Cannabinoid Screen, Urine NEGATIVE (NEGATIVE); Cocaine Screen, Urine NEGATIVE (NEGATIVE); Opiate Scree,Urine NEGATIVE (NEGATIVE); Phencyclidine Screen, Urine NEGATIVE (NEGATIVE)
[2020-08-13] MEDS ORDERED: InsuLIN REG 1unit/0.01ml Soln (100units/ml) SC ONE (23:30)
[2020-08-14] MEDS ORDERED: InsuLIN REG 1unit/0.01ml Soln (100units/ml) IV ONE (01:30)
[2020-08-14] MEDS ORDERED: SODIUM CHLORIDE 0.9% 1,000 ML IV ONE (01:30)
[2020-08-14 04:32] VITALS: BP 140/84
== END 2020-08-14 04:51 | disposition home or self-care (01) ==
LOC: ER 18:36
DX: N39.0 Urinary tract infection, site not specified (principal); K29.70 Gastritis, unspecified, without bleeding; E86.0 Dehydration; K76.0 Fatty (change of) liver, not elsewhere classified; R16.1 Splenomegaly, not elsewhere classified; F17.210 Nicotine dependence, cigarettes, uncomplicated; E11.9 Type 2 diabetes mellitus without complications; I10 Essential (primary) hypertension; Z79.899 Other long term (current) drug therapy; Z90.49 Acquired absence of other specified parts of digestive tract
CPT/HCPCS: 36415; 74176; 80053; 80307; 81001; 82150; 82962; 83690; 83735; 84484; 85025; 93005; 96361; 96365; 96372; 96375; 99285; C9113; J0744; J1815; J2405; J7030; J7040

== ENCOUNTER 2020-10-06 22:08 | Inpatient (IN) | payer MEDICARE, MEDICAID ==
[~2020-10-06] VITALS: Ht 172.7 cm; Wt 121.8 kg
[2020-10-06 23:00] LABS: Basophils # (auto) 0.1 10 ^3/uL (0-0.2); Eosinophils # (auto) 0.4 10 ^3/uL (0-0.8); Red Cell Distribution Width 18.4 % (11.8-14.3)
[2020-10-06 23:02] LABS: Basophils % (auto) 0.7 % (0.0-2.0); Eosinophils % (auto) 2.8 % (0.0-7.0); Hematocrit 59.7 % (36.0-46.0); Hemoglobin 19.7 g/dL (12.2-16.2); Lymphocytes # (auto) 1.9 10 ^3/uL (0.4-5.4); Lymphocytes % (auto) 13.7 % (10.0-50.0); Mean Corpuscular Hemoglobin 25.8 pg (28.0-32.0); Mean Corpuscular Volume 78.4 fL (80.0-100.0); Monocytes # (auto) 0.6 10 ^3/uL (0-1.3); Monocytes % (auto) 3.9 % (0.0-12.0); Neutrophils % (auto) 78.9 % (37.0-80.0); Nucleated Red Blood Cells % 0.8 %; Platelet Count (auto) 338 10^3/uL (140-450); Red Blood Cells 7.62 10^6/uL (4.0-5.20)
[2020-10-06 23:19] LABS: Alanine Aminotransferase 24 U/L (13-56); Albumin 2.9 g/dL (3.4-5.0); Anion Gap 8 (5-15); Aspartate Aminotransferase 12 U/L (15-37); BUN/Creatinine Ratio 10.8; Blood Urea Nitrogen 14 mg/dL (7-18); Calcium 8.8 mg/dL (8.5-10.1); Carbon Dioxide 24 mmol/L (21-32); Chloride 103 mmol/L (98-107); GFR African American 53 mL/min; GFR Non-African American 44 mL/min; Glucose 316 mg/dL (74-106); Potassium 3.5 mmol/L (3.5-5.1); Sodium 135 mmol/L (136-145)
[2020-10-06 23:24] LABS: Alkaline Phosphatase 156 U/L (45-117); Bilirubin, Total 0.6 mg/dL (0.2-1.0); Total Protein 7.2 g/dL (6.4-8.2)
[2020-10-07] MEDS ORDERED: ONDANSETRON HCL 4 MG/2 ML VIAL IV ONE (00:15)
[2020-10-07] MEDS ORDERED: MORPHINE SULFATE 4 MG/ML SYR/VIAL IV ONE (00:15)
[2020-10-07] MEDS ORDERED: cefTRIAXone 1GM/50ML D5W 50 ML IV ONE (00:15)
[2020-10-07] MEDS ORDERED: SODIUM CHLORIDE 0.9% 1,000 ML IV ONE (00:15)
[2020-10-07 01:18] LABS: Urine Bacteria MOD /hpf (None Seen); Urine Blood TRACE /uL (Negative); Urine Budding Yeast MODERATE /hpf (None Seen); Urine Specific Gravity 1.036 (1.001-1.035); Urine WBC 221 /hpf (0 - 5)
[2020-10-07] MEDS ORDERED: ONDANSETRON HCL 4 MG/2 ML VIAL IV PRN (02:45)
[2020-10-07] MEDS ORDERED: DEXTROSE (50%) 50ML SYRG IV PRN (02:45)
[2020-10-07] MEDS ORDERED: TEMAZEPAM 15 MG CAP PO PRN (02:45)
[2020-10-07] MEDS ORDERED: ACETAMINOPHEN 325 MG TAB PO PRN (02:45)
[2020-10-07] MEDS: HYDROcodone-ACET 5/325MG TAB PO PRN ×2 (03:53→20:15)
[2020-10-07 04:51] VITALS: BP 120/85
[2020-10-07 05:00] VITALS: BP 120/85
[2020-10-07] MEDS: InsuLIN REG 1unit/0.01ml Soln (100units/ml) SC SCH ×4 (06:00→23:34)
[2020-10-07] MEDS: ACCU-CHEK COMFORT CURVE STRIP VI SCH ×4 (06:00→23:34)
[2020-10-07] MEDS: GABAPENTIN 100 MG CAP PO SCH ×3 (06:00→21:39)
--- NOTE | 2020-10-07 07:55 | NUR ---
OPENING SHIFT NOTE: PATIENT RESTING IN BED, A/OX4. RESPIRATIONS EVEN AND UNLABORED. PATIENT C/O DIFFICULTY SWALLOWING WITH BREAKFAST, PATIENT STATES IT HAS BEEN PROBLEMATIC "FOR A FEW MONTHS NOW." RESPIRATIONS EVEN AND UNLABORED. UPDATED ON PLAN OF CARE. FWW BROUGHT TO BEDSIDE. CALL LIGHT WITHIN REACH, WILL CONTINUE TO MONITOR.
[2020-10-07 09:00] VITALS: BP 134/70
[2020-10-07] MEDS: FAMOTIDINE 20 MG TAB PO SCH ×2 (09:44→21:39)
[2020-10-07] MEDS: ENOXAPARIN SOD 40 MG/0.4 ML SYRINGE SC SCH (09:44)
[2020-10-07] MEDS ORDERED: LISINOPRIL 5 MG TAB PO SCH (10:00)
[2020-10-07] MEDS ORDERED: LOSARTAN POTASSIUM 25 MG TAB PO SCH (10:00)
--- NOTE | 2020-10-07 11:58 | NUR ---
WOUND CARE NOTE: Wound care in to see patient regarding multiple skin integrity issue that are noted present on admission. Bedside nurse took photograph of patient's skin issue upon admission for reference. Patient is 65 years old female with admitting diagnosis Complicated UTI. Patient is resting in bed in Rm. 293B. Patient is awake, alert and oriented. She's in no stated pain at this time. Bedside nurse reported that patient is ambulatory to bathroom with assist. She's able to assist in turning and repositioning and her Carl score is 18. Skin assessment done with the assistance of patient's nurse, SHEREE Khan. Patient's bilateral upper medial thigh, groin and, lower abdominal fold, sacral intragluteal fold noted red and macerated. 1x1.2cm open full thickness wound with no measurable depth noted to her L medial upper thigh. Patient's multiple skin issue consistent with moisture associated skin damage/intertrigo. Cleansed patient's thigh, groin, abdominal fold and IGF sacrum with mild soap and water,patted dry. Applied Thera honey gel to L medial thigh wound and covered with small Opti foam gentle dressing. Applied Antifungal clear ointment to patient's lower abdominal fold, thighs and sacral intragluteal fold. Patient tolerated well. SHEREE Khan at bedside. RECOMMENDATION: Nursing to continue with Daily/PRN dressing change to L medial thigh wound, BID/PRN cleaning and application of Antifungal clear ointment to intertrigo per MD order,redistribute pressure points with pillows, frequent yue care/check, keep clean and dry,continue monitoring by wound care while patient is hospitalized. Addendum: 10/07/20 at 1448 by Radha Rivero RN Amended: Links added.
[2020-10-07 12:45] VITALS: BP 119/76
[2020-10-07 12:59] LABS: Hemoglobin 20.1 g/dL (12.2-16.2); Lymphocytes # (auto) 1.9 10 ^3/uL (0.4-5.4); Monocytes # (auto) 0.5 10 ^3/uL (0-1.3); Monocytes % (auto) 4.1 % (0.0-12.0); Red Cell Distribution Width 18.7 % (11.8-14.3)
[2020-10-07 13:00] LABS: Basophils # (auto) 0 10 ^3/uL (0-0.2); Basophils % (auto) 0.2 % (0.0-2.0); Eosinophils # (auto) 0.4 10 ^3/uL (0-0.8); Eosinophils % (auto) 3.5 % (0.0-7.0); Lymphocytes % (auto) 15.3 % (10.0-50.0); Mean Corpuscular Hemoglobin 26.8 pg (28.0-32.0); Mean Corpuscular Hgb Conc. 34.2 g/dL (32.0-36.0); Mean Corpuscular Volume 78.3 fL (80.0-100.0); Neutrophils # (auto) 9.4 10 ^3/uL (1.6-8.6); Neutrophils % (auto) 76.9 % (37.0-80.0); Nucleated Red Blood Cells % 0.4 %; Platelet Count (auto) 372 10^3/uL (140-450); Red Blood Cells 7.51 10^6/uL (4.0-5.20); White Blood Cell 12.2 10^3/uL (4.4-10.8)
[2020-10-07 13:01] LABS: Hematocrit 58.8 % (36.0-46.0)
[2020-10-07 13:13] LABS: Calcium 8.9 mg/dL (8.5-10.1); Potassium 3.6 mmol/L (3.5-5.1)
[2020-10-07] MEDS: SOD CHL 0.9%/ KCL 20MEQ 1,000 ML IV SCH (14:55)
[2020-10-07 14:58] LABS: INR 1.03 (0.9-1.15)
--- NOTE | 2020-10-07 15:15 | NUR ---
CONSENTS SIGNED AND PLACED IN THE HARD CHART FOR EGD 10-08-20.
[2020-10-07 16:40] VITALS: BP 128/87
[2020-10-07] MEDS ORDERED: VANCOMYCIN 1GM/250ML 250 ML IV ONE (18:45)
[2020-10-07] MEDS ORDERED: VANCOMYCIN PER PHARMACY 0 MG IV SCH (18:45)
--- NOTE | 2020-10-07 19:06 | NUR ---
CARE ENDORSED TO JAKE BENTLEY.
--- NOTE | 2020-10-07 19:30 | NUR ---
Opening Shift Note Assumed care of patient, awake and alert. No S/S of distress/SOB or pain. Insructed on POC and to callfor assist PRN, will continue to monitor for changes Q1hr and PRN. Fall and safety precautions in place. Call light within reach.
[2020-10-07] MEDS: INSULIN LANTUS (GLARGINE) 1 /0.01ml (100units/ml) SC SCH (22:05)
[2020-10-07 23:22] VITALS: BP 96/69
[2020-10-08] MEDS: cefTRIAXone 1GM/50ML D5W 50 ML IV SCH (00:44)
[2020-10-08 04:59] LABS: Urine Bacteria FEW /hpf (None Seen); Urine Blood Negative /uL (Negative); Urine Hyaline Cast FEW /lpf (0 - 2); Urine Mucus FEW (None Seen); Urine Specific Gravity 1.018 (1.001-1.035); Urine WBC 55 /hpf (0 - 5)
[2020-10-08 05:06] LABS: Alcohol, Urine < 3.0 mg/dL (0-10); Amphetamine Screen, Urine NEGATIVE (NEGATIVE); Barbiturate Scree,Urine NEGATIVE (NEGATIVE); Benzodiazephine Screen, Urine NEGATIVE (NEGATIVE); Cannabinoid Screen, Urine NEGATIVE (NEGATIVE); Opiate Scree,Urine POSITIVE (NEGATIVE); Phencyclidine Screen, Urine POSITIVE (NEGATIVE)
[2020-10-08] MEDS: SOD CHL 0.9%/ KCL 20MEQ 1,000 ML IV SCH (05:11)
[2020-10-08] MEDS: ACCU-CHEK COMFORT CURVE STRIP VI SCH ×4 (05:11→23:31)
[2020-10-08] MEDS: GABAPENTIN 100 MG CAP PO SCH ×3 (05:11→21:34)
[2020-10-08 05:12] LABS: Eosinophils # (auto) 0.4 10 ^3/uL (0-0.8); Monocytes # (auto) 0.5 10 ^3/uL (0-1.3)
[2020-10-08 05:14] LABS: Basophils # (auto) 0 10 ^3/uL (0-0.2); Basophils % (auto) 0.4 % (0.0-2.0); Eosinophils % (auto) 3.7 % (0.0-7.0); Hemoglobin 19.2 g/dL (12.2-16.2); Lymphocytes # (auto) 1.7 10 ^3/uL (0.4-5.4); Lymphocytes % (auto) 15.3 % (10.0-50.0); Mean Corpuscular Hemoglobin 26.3 pg (28.0-32.0); Mean Corpuscular Hgb Conc. 33.5 g/dL (32.0-36.0); Mean Corpuscular Volume 78.7 fL (80.0-100.0); Monocytes % (auto) 4.7 % (0.0-12.0); Neutrophils # (auto) 8.6 10 ^3/uL (1.6-8.6); Neutrophils % (auto) 75.9 % (37.0-80.0); Nucleated Red Blood Cells % 0.7 %; Platelet Count (auto) 350 10^3/uL (140-450); Red Blood Cells 7.29 10^6/uL (4.0-5.20); Red Cell Distribution Width 18.2 % (11.8-14.3); White Blood Cell 11.3 10^3/uL (4.4-10.8)
[2020-10-08 05:15] LABS: Cocaine Screen, Urine POSITIVE (NEGATIVE)
[2020-10-08 05:16] LABS: BUN/Creatinine Ratio 10.3; Calcium 8.6 mg/dL (8.5-10.1); Potassium 3.7 mmol/L (3.5-5.1)
[2020-10-08 05:18] LABS: Hematocrit 57.4 % (36.0-46.0)
[2020-10-08 05:21] VITALS: BP 127/82
[2020-10-08] MEDS: InsuLIN REG 1unit/0.01ml Soln (100units/ml) SC SCH ×4 (05:26→23:32)
[2020-10-08] MEDS: VANCOMYCIN 750mg/250ml 250 ML IV SCH ×2 (06:35→17:53)
--- NOTE | 2020-10-08 07:34 | NUR ---
OPENING SHIFT NOTE: PATIENT RESTING IN BED, A/OX4. RESPIRATIONS EVEN AND UNLABORED. RESPIRATIONS EVEN AND UNLABORED. UPDATED ON PLAN OF CARE. NPO FOR SCHEDULED EGD WITH DR. ELLISON. CALL LIGHT WITHIN REACH, WILL CONTINUE TO MONITOR.
[2020-10-08] MEDS ORDERED: SODIUM CHLORIDE LOCK 10 ML ONE (08:41)
[2020-10-08] MEDS ORDERED: LIDOCAINE VISCOUS 2% 15ML UD ONE (08:41)
[2020-10-08] MEDS ORDERED: diphenhdrAMINE HCL 50 MG/1 ML VL ONE (08:42)
[2020-10-08 09:00] VITALS: BP 117/88
[2020-10-08] MEDS: fentaNYL CITRATE 100 MCG/2 ML VL ONE ×2 (09:50→09:54)
[2020-10-08] MEDS: MIDAZOLAM HCL 5 MG/ML-1ML VIAL ONE ×2 (09:50→09:54)
--- NOTE | 2020-10-08 10:25 | NUR ---
CALL FROM DAUGHTER: PASSWORD RECEIVED, UPDATED ON PLAN OF CARE. ADDRESSED CONCERNS, WILL CONTINUE TO MONITOR.
--- NOTE | 2020-10-08 10:45 | NUR ---
PATIENT BACK IN ROOM FROM PROCEDURE. NPO UNTIL LUNCH TIME FROM ORAL LIDOCAINE. PATIENT AROUSABLE. VERBALIZED UNDERSTANDING.
[2020-10-08] MEDS: INSULIN LANTUS (GLARGINE) 1 /0.01ml (100units/ml) SC SCH ×2 (11:22→21:44)
[2020-10-08] MEDS: FAMOTIDINE 20 MG TAB PO SCH ×2 (12:29→21:34)
[2020-10-08] MEDS: ENOXAPARIN SOD 40 MG/0.4 ML SYRINGE SC SCH (12:29)
[2020-10-08] MEDS: FLUCONAZOLE 100 MG TAB PO SCH (12:29)
--- NOTE | 2020-10-08 12:30 | NUR ---
MD TIDWELL ROUNDING.
[2020-10-08 13:00] VITALS: BP 129/89
[2020-10-08] MEDS: DOCUSATE SOD 100 MG CAP PO PRN (14:00)
--- NOTE | 2020-10-08 16:02 | NUR ---
PATIENT TOLERATED LUNCH, NO COMPLAINTS. PATIENT PASSING GAS, COLACE GIVEN TO HELP HAVE A BM.
--- NOTE | 2020-10-08 16:59 | NUR ---
PATIENT UP IN CHAIR. FULL LINEN CHANGE COMPLETE.
[2020-10-08 17:00] VITALS: BP 151/87
--- NOTE | 2020-10-08 19:12 | NUR ---
CARE ENDORSED TO NOC RN.
[2020-10-08] MEDS: HYDROcodone-ACET 5/325MG TAB PO PRN (21:35)
[2020-10-08 22:07] VITALS: BP 120/72
[2020-10-09] MEDS: cefTRIAXone 1GM/50ML D5W 50 ML IV SCH (00:43)
[2020-10-09 05:53] VITALS: BP 104/73
[2020-10-09] MEDS: InsuLIN REG 1unit/0.01ml Soln (100units/ml) SC SCH ×4 (06:00→23:22)
[2020-10-09] MEDS: GABAPENTIN 100 MG CAP PO SCH ×3 (06:13→21:47)
[2020-10-09] MEDS: ACCU-CHEK COMFORT CURVE STRIP VI SCH ×4 (06:14→23:21)
[2020-10-09] MEDS: VANCOMYCIN 750mg/250ml 250 ML IV SCH ×2 (06:14→20:48)
[2020-10-09 09:16] VITALS: BP 127/81
[2020-10-09] MEDS: HYDROcodone-ACET 5/325MG TAB PO PRN ×3 (09:22→20:00)
--- NOTE | 2020-10-09 10:08 | NUR ---
MICRO CALLED RESULTS FOR SMEAR POSITIVE YEAST
[2020-10-09 10:59] LABS: Basophils # (auto) 0.1 10 ^3/uL (0-0.2); Eosinophils # (auto) 0.2 10 ^3/uL (0-0.8); Eosinophils % (auto) 1.8 % (0.0-7.0); Lymphocytes # (auto) 1.5 10 ^3/uL (0.4-5.4); Monocytes # (auto) 0.7 10 ^3/uL (0-1.3); Neutrophils # (auto) 9.4 10 ^3/uL (1.6-8.6); White Blood Cell 11.9 10^3/uL (4.4-10.8)
[2020-10-09 11:01] LABS: Basophils % (auto) 0.8 % (0.0-2.0); Hematocrit 57.4 % (36.0-46.0); Lymphocytes % (auto) 12.7 % (10.0-50.0); Mean Corpuscular Hemoglobin 26.5 pg (28.0-32.0); Mean Corpuscular Hgb Conc. 33.1 g/dL (32.0-36.0); Mean Corpuscular Volume 80.1 fL (80.0-100.0); Monocytes % (auto) 5.7 % (0.0-12.0); Nucleated Red Blood Cells % 0.7 %; Platelet Count (auto) 272 10^3/uL (140-450); Red Blood Cells 7.16 10^6/uL (4.0-5.20); Red Cell Distribution Width 18.6 % (11.8-14.3)
[2020-10-09 11:20] LABS: BUN/Creatinine Ratio 10.2; Calcium 8.5 mg/dL (8.5-10.1); Potassium 3.7 mmol/L (3.5-5.1)
[2020-10-09] MEDS: FLUCONAZOLE 100 MG TAB PO SCH (11:26)
[2020-10-09] MEDS: FAMOTIDINE 20 MG TAB PO SCH ×2 (11:26→21:47)
[2020-10-09] MEDS: INSULIN LANTUS (GLARGINE) 1 /0.01ml (100units/ml) SC SCH ×2 (11:27→21:47)
[2020-10-09] MEDS: ENOXAPARIN SOD 40 MG/0.4 ML SYRINGE SC SCH (11:27)
--- NOTE | 2020-10-09 11:36 | NUR ---
Nutrition Assessment Est energy needs 6586-0146 kcal (11-14 kcal/kg BW 118.8kg) Est protein needs 64-76g (1-1.2g/kg IBW 64kg) Will monitor and reassess prn. Addendum: 10/09/20 at [address] Amended: Links added.
--- NOTE | 2020-10-09 11:55 | NUR ---
MIGUELITO CALLED RESULTS FOR WOUND CULTURE
--- NOTE | 2020-10-09 11:56 | NUR ---
NOTIFIED DIRECTOR OF ONCOLOGY JOSLYN OF MICROBIOLOGY RESULTS.
[2020-10-09] MEDS ORDERED: ERTAPENEM SOD INJ 1 GM in SODIUM CHL 0.9% 50 ML IV ONE (12:15)
[2020-10-09 13:00] VITALS: BP 130/81
--- NOTE | 2020-10-09 15:12 | NUR ---
MIDLINE placement Patient/Patient significant other educated on need for MIDLINE placement. All risks and benefits explained and all questions and concerns addressed prior to procedure. Noted past medical history and allergies with no contraindications. INR and Plt counts within acceptable range. 4 fr MIDLINE inserted via right basilic vein using [employer]'s [employer] US and Tip Location System. Sterile technique with maximum barrier precautions utilized. Blood return obtained from the single lumen and it flushed easily with NS using proper technique. MIDLINE secured with Stat-lock; biodisc and occlusive dressing applied. Less than 5ml EBL noted during procedure. MIDLINE 20cm internally w/ 0cm externally. *Baseline Arm Circumference 36cm at 1cm above insertion site. MIDLINE lot # [id number]. Note:
--- NOTE | 2020-10-09 15:13 | NUR ---
OK to use MIDLINE Zaida Salazar notified now OK to use MIDLINE.
[2020-10-09 17:00] VITALS: BP 145/98
--- NOTE | 2020-10-09 18:15 | NUR ---
CALLED LAB IN REGARDS TO [facility] ASKED THEM TO SEND SUPPLIES SO I COULD PULL LABS.
[2020-10-09] MEDS: DOCUSATE SOD 100 MG CAP PO PRN (18:38)
--- NOTE | 2020-10-09 20:00 | NUR ---
Opening Shift Note Assumed care of patient, awake and alert. No S/S of distress/SOB c/o abdominal pain 5/10 pain level. Instructed on POC and to call for assist PRN, will continue to monitor for changes Q1hr and PRN.Medicated with one tab.[place] 5/325mg.p.o as needed.
[2020-10-09 21:57] VITALS: BP 144/90
[2020-10-10 05:23] VITALS: BP 127/84
[2020-10-10] MEDS: GABAPENTIN 100 MG CAP PO SCH ×3 (05:32→22:36)
[2020-10-10] MEDS: ACCU-CHEK COMFORT CURVE STRIP VI SCH ×4 (05:33→23:46)
[2020-10-10] MEDS: InsuLIN REG 1unit/0.01ml Soln (100units/ml) SC SCH ×4 (05:34→23:46)
[2020-10-10] MEDS: VANCOMYCIN 750mg/250ml 250 ML IV SCH ×2 (06:17→18:08)
--- NOTE | 2020-10-10 07:27 | NUR ---
Report given to Laurie Salazar, patient is resting no distress.
[2020-10-10 09:00] VITALS: BP 139/83
[2020-10-10] MEDS: ERTAPENEM SOD INJ 1 GM in SODIUM CHL 0.9% 50 ML IV SCH (10:36)
[2020-10-10] MEDS: FAMOTIDINE 20 MG TAB PO SCH ×2 (10:37→20:58)
[2020-10-10] MEDS: ENOXAPARIN SOD 40 MG/0.4 ML SYRINGE SC SCH (10:37)
[2020-10-10] MEDS: FLUCONAZOLE 100 MG TAB PO SCH (10:37)
[2020-10-10] MEDS: HYDROcodone-ACET 5/325MG TAB PO PRN ×2 (10:38→20:59)
[2020-10-10] MEDS: INSULIN LANTUS (GLARGINE) 1 /0.01ml (100units/ml) SC SCH ×2 (11:48→21:59)
[2020-10-10 13:00] VITALS: BP 144/88
[2020-10-10 17:00] VITALS: BP 135/78
--- NOTE | 2020-10-10 20:00 | NUR ---
Opening Shift Note Assumed care of patient, awake and alert. No S/S of distress/SOB or pain. Instructed on POC and to call for assist PRN, will continue to monitor for changes Q1hr and PRN.Dressing done on the abdominal fold and yue area with soap, dried and applied anti-fungal cream and put linen on the abdominal fold.
[2020-10-10 22:00] VITALS: BP 158/102
--- NOTE | 2020-10-10 23:46 | NUR ---
Refused Regular insulin ,said it will go down.
[2020-10-11 05:00] VITALS: BP 157/110
[2020-10-11] MEDS: GABAPENTIN 100 MG CAP PO SCH ×3 (05:41→22:40)
[2020-10-11] MEDS: InsuLIN REG 1unit/0.01ml Soln (100units/ml) SC SCH ×3 (06:00→18:19)
[2020-10-11] MEDS: ACCU-CHEK COMFORT CURVE STRIP VI SCH ×3 (06:33→18:08)
[2020-10-11] MEDS: VANCOMYCIN 750mg/250ml 250 ML IV SCH ×2 (06:34→19:03)
--- NOTE | 2020-10-11 07:10 | NUR ---
Called/paged Hospitalist paged [] called re:for the patient blood pressure of 168/108 . Waiting for call back. Continue care.
--- NOTE | 2020-10-11 07:30 | NUR ---
Opening Shift Note Assumed care of patient, awake and alert. No S/S of distress/SOB or pain. Instructed on POC and to call for assist PRN, will continue to monitor for changes Q1hr and PRN. Bed is locked and in lowest position. Call light within reach.
--- NOTE | 2020-10-11 07:30 | NUR ---
Report given to Laurie Flower ,and to follow-up to hospitalist about the blood pressure of 168/108,patient is asymptomatic, and refusing the insulin sometimes.
[2020-10-11 08:00] VITALS: BP 154/89
[2020-10-11 08:51] VITALS: BP 154/89
[2020-10-11] MEDS ORDERED: FLUCONAZOLE 200MG/100ML 100 ML IV SCH (10:00)
[2020-10-11] MEDS: LOSARTAN POTASSIUM 25 MG TAB PO SCH (10:25)
[2020-10-11] MEDS: ERTAPENEM SOD INJ 1 GM in SODIUM CHL 0.9% 50 ML IV SCH (10:25)
[2020-10-11] MEDS: INSULIN LANTUS (GLARGINE) 1 /0.01ml (100units/ml) SC SCH (10:29)
[2020-10-11] MEDS: FAMOTIDINE 20 MG TAB PO SCH ×2 (10:30→22:41)
[2020-10-11] MEDS: ENOXAPARIN SOD 40 MG/0.4 ML SYRINGE SC SCH (10:30)
[2020-10-11] MEDS: FLUCONAZOLE 200MG/100ML 100 ML IV SCH ×2 (11:05→13:27)
[2020-10-11 13:00] VITALS: BP 129/75
[2020-10-11] MEDS: HYDROcodone-ACET 5/325MG TAB PO PRN ×2 (13:27→20:17)
--- NOTE | 2020-10-11 13:30 | NUR ---
PATIENT COMPLAIN OF RIGHT ANKLE SWELLING AND PAIN. PATIENT STATES SHE HAS HX OF GOUT. PAGED DR. TIDWELL. WILL AWAIT NEW ORDERS.
[2020-10-11 17:00] VITALS: BP 147/87
[2020-10-11] MEDS ORDERED: MICAFUNGIN SODIUM 100 MG in SODIUM CHL 0.9% 100 ML IV ONE (17:00)
[2020-10-11 18:34] LABS: Urine Bacteria NONE SEEN /hpf (None Seen); Urine Blood Negative /uL (Negative); Urine Mucus FEW (None Seen); Urine Specific Gravity 1.014 (1.001-1.035); Urine WBC 1 /hpf (0 - 5)
[2020-10-11 22:00] VITALS: BP 144/110
[2020-10-12] MEDS: ACCU-CHEK COMFORT CURVE STRIP VI SCH ×5 (00:20→23:58)
[2020-10-12] MEDS: INSULIN LANTUS (GLARGINE) 1 /0.01ml (100units/ml) SC SCH ×3 (00:20→21:31)
[2020-10-12] MEDS: InsuLIN REG 1unit/0.01ml Soln (100units/ml) SC SCH ×4 (00:25→18:20)
[2020-10-12 05:00] VITALS: BP 136/90
[2020-10-12] MEDS: GABAPENTIN 100 MG CAP PO SCH ×3 (06:00→21:30)
[2020-10-12] MEDS: VANCOMYCIN 750mg/250ml 250 ML IV SCH ×2 (06:56→18:17)
[2020-10-12 07:16] LABS: Basophils # (auto) 0.1 10 ^3/uL (0-0.2); Eosinophils # (auto) 0.3 10 ^3/uL (0-0.8); Eosinophils % (auto) 3.3 % (0.0-7.0); Lymphocytes # (auto) 1.8 10 ^3/uL (0.4-5.4); Monocytes # (auto) 0.6 10 ^3/uL (0-1.3)
[2020-10-12 07:19] LABS: Basophils % (auto) 0.9 % (0.0-2.0); Hematocrit 50.9 % (36.0-46.0); Hemoglobin 17.2 g/dL (12.2-16.2); Mean Corpuscular Hemoglobin 26.8 pg (28.0-32.0); Mean Corpuscular Hgb Conc. 33.8 g/dL (32.0-36.0); Mean Corpuscular Volume 79.5 fL (80.0-100.0); Monocytes % (auto) 6.4 % (0.0-12.0); Neutrophils # (auto) 5.9 10 ^3/uL (1.6-8.6); Neutrophils % (auto) 68.4 % (37.0-80.0); Nucleated Red Blood Cells % 0.8 %; Platelet Count (auto) 253 10^3/uL (140-450); Red Cell Distribution Width 18.4 % (11.8-14.3); White Blood Cell 8.7 10^3/uL (4.4-10.8)
--- NOTE | 2020-10-12 07:30 | NUR ---
Opening Shift Note Assumed care of patient, awake and alert. No S/S of distress/SOB or pain. Patient is on contact isolation. Patient is NPO for LIZ procedure this morning with Dr. Piedra. Instructed on POC and to call for assist PRN, will continue to monitor for changes Q1hr and PRN. Bed is locked and in lowest position. Call light within reach.
[2020-10-12 07:33] LABS: Albumin 2.2 g/dL (3.4-5.0); Calcium 8.4 mg/dL (8.5-10.1); Potassium 3.7 mmol/L (3.5-5.1)
[2020-10-12 07:38] LABS: BUN/Creatinine Ratio 7.5; Bilirubin, Total 0.5 mg/dL (0.2-1.0)
--- NOTE | 2020-10-12 07:40 | NUR ---
LIZ PATIENT TAKEN DOWN VIA GURNEY TO LIZ PROCEDURE WITH DR. WILSON. PATIENT TOLERATED TRANSFER WELL WITH NO SIGNS OF DISTRESS/SOB OR PAIN. WILL AWAIT PATIENT RETURN.
[2020-10-12 07:51] LABS: INR 1.06 (0.9-1.15); Partial Thromboplastin Time 29.9 sec (23.0-31.2)
[2020-10-12] MEDS ORDERED: LIDOCAINE VISCOUS 2% 15ML UD MT ONE (08:15)
[2020-10-12] MEDS ORDERED: MIDAZOLAM HCL 1MG/1ML-2 ML VIAL IV ONE (08:15)
[2020-10-12] MEDS ORDERED: fentaNYL CITRATE 100 MCG/2 ML VL IV ONE (08:15)
--- NOTE | 2020-10-12 10:00 | NUR ---
GAG REFLEX ASSESSED PATIENT GAG REFLEX WITH ICE CHIPS AND SIPS OF WATER. PATIENT TOLERATED WELL NO SIGN OF DISTRESS. WILL RESUME DIET ORDERED BY DR. WILSON.
[2020-10-12] MEDS: ENOXAPARIN SOD 40 MG/0.4 ML SYRINGE SC SCH ×2 (10:20→20:59)
[2020-10-12] MEDS: LOSARTAN POTASSIUM 25 MG TAB PO SCH (10:21)
[2020-10-12] MEDS: FAMOTIDINE 20 MG TAB PO SCH ×2 (10:21→21:30)
[2020-10-12] MEDS: MICAFUNGIN SODIUM 100 MG in SODIUM CHL 0.9% 100 ML IV SCH (11:03)
[2020-10-12] MEDS: HYDROcodone-ACET 5/325MG TAB PO PRN ×3 (11:03→20:58)
[2020-10-12] MEDS ORDERED: ALLOPURINOL 100 MG TAB PO ONE (11:15)
--- NOTE | 2020-10-12 12:42 | NUR ---
Nutrition Followup Note Wt: 118.9 kg Pt was off the floor for LIZ when rounded this am. pt was NPO when rounded now resumed with CCHO 45 gm diet with adequate PO of > 75% x 6 per RN doc Est energy needs 4879-1568 kcal (11-14 kcal/kg BW 118.8kg) Est protein needs 64-76g (1-1.2g/kg IBW 64kg) Will monitor and reassess prn. Labs: GLU 122 H CA 8.4 L, ALB 2.2 L, UA 7.1 H BM: Pt had 1 BM today per RN note Skin: BS 18 mod risk, customer care assistant note PES: Obesity aeb pt with a BMI of 39.8 kg/m2 r/t caloric intake in excess of needs Decreased nutrient needs aeb pt with a BMI of 39.8kg/m2 and pt is 187% of IBW r/t adiposity Comments: Will continue to monitor PO intake, skin status. F/u high 3-5 days Rec: 1) Consider low purine along with current diet. 2) consider prostat 1 packet bid as UA improve. 3) refer to CDE on DC. 4) continue current plan of care
[2020-10-12 13:00] VITALS: BP 133/88
--- NOTE | 2020-10-12 16:35 | NUR ---
assessment Patient is a 65 year old female who is alert and oriented. Patients emotional state is stable. Prior to admission patient lived home with family and functioned with assistance. Per patient she will return home to her prior living arrangements post discharge and family will transport her home. Patient informed me she has a fww and a cane for home use. Patient informed me her PCP is Dr Gann. Patient informed me she has a daily caregiver and feels safe at home. Patient may benefit from SNF on discharge for sepsis and PT. Patient prefers [facility] since its closer to her home. I informed patient I will continue to monitor and follow up as appropriate for any post discharge needs. I informed patient she has a right to speak to a social sciences instructor regarding all care. I informed patient she has a right to participate in any and all discharge planning. Patient does not have a POA and advanced directive. I have offered patient information on POA and advanced directives. I informed the patient the advantages and benefits of having an Advanced Directive. Patient verbalized understanding and agreed to discharge plan. Addendum: 10/12/20 at 1639 by Yamilka COLLAZO Amended: Links added.
[2020-10-12 17:00] VITALS: BP 141/86
--- NOTE | 2020-10-12 20:05 | NUR ---
PT ASSISTED TO BATHROOM AND BACK TO BED
--- NOTE | 2020-10-12 20:15 | NUR ---
PT CALLED TO ROOM MIDLINE HAS BLEEDING FROM INSERTION SITE, PRESSURE DRESSING APPLIED, CLL OUT TO HOSPITALIST TIFFANI FOR FURTHER ORDERS.
--- NOTE | 2020-10-12 20:58 | NUR ---
CALL OUT AGAIN TO HOSPITALIST, PT CONTINUES TO BLEED FROM MIDLINE.
[2020-10-12] MEDS ORDERED: PHYTONADIONE (VIT K)10 MG/ML 1ML VIAL SUBCUT ONE (21:15)
[2020-10-13] VITALS (9 sets, daily range): BP systolic 125–158; BP diastolic 76–100
[2020-10-13] MEDS: InsuLIN REG 1unit/0.01ml Soln (100units/ml) SC SCH ×4 (00:02→18:12)
--- NOTE | 2020-10-13 05:39 | NUR ---
PT IS REQUESTING TO HAVE HER MIDLINE REMOVED, STATES IT HURTS.
[2020-10-13] MEDS: ACCU-CHEK COMFORT CURVE STRIP VI SCH ×3 (05:55→17:41)
[2020-10-13] MEDS: GABAPENTIN 100 MG CAP PO SCH ×3 (05:55→21:54)
[2020-10-13] MEDS: HYDROcodone-ACET 5/325MG TAB PO PRN ×2 (06:28→19:57)
[2020-10-13] MEDS: VANCOMYCIN 750mg/250ml 250 ML IV SCH ×2 (06:28→18:59)
--- NOTE | 2020-10-13 07:27 | NUR ---
OPENING SHIFT NOTE Assumed care of patient from machine quilt stuffer RN. Patient is alert and oriented x4, no signs of distress noted. Patient was updated on the plan of care and verbalized understanding. Patient is complaining of pain at the midline. Dressing will be changed. Bed is locked, in the lowest position, side rails up x2 and call light is in reach. She was encouraged to call for assistance as needed.
[2020-10-13 09:51] LABS: BUN/Creatinine Ratio 8.5; Calcium 8.5 mg/dL (8.5-10.1)
[2020-10-13] MEDS: MICAFUNGIN SODIUM 100 MG in SODIUM CHL 0.9% 100 ML IV SCH (10:16)
[2020-10-13] MEDS: LOSARTAN POTASSIUM 25 MG TAB PO SCH (10:18)
[2020-10-13] MEDS: FAMOTIDINE 20 MG TAB PO SCH ×2 (10:19→21:54)
[2020-10-13] MEDS: ALLOPURINOL 100 MG TAB PO SCH (10:19)
[2020-10-13] MEDS: INSULIN LANTUS (GLARGINE) 1 /0.01ml (100units/ml) SC SCH ×2 (10:21→22:00)
--- NOTE | 2020-10-13 11:15 | NUR ---
WOUND CARE NOTE: IN TO SEE PATIENT AT THIS TIME FOR SKIN INTEGRITY. PATIENT HAS CURRENT TOREY SCORE OF 18. PATIENT IS AMBULATORY. SKIN/WOUND CARE PLAN UPDATED. PATIENT HAS BEEN MONITORED FOR INTERTRIGINOUS RASH TO GROIN/ABD SKIN FOLDS, PERINEUM, BILATERAL UPPER MEDIAL THIGHS. SKIN REMAINS DARK RED, BUT LOOKS SLIGHTLY IMPROVED. APPLIED ANTIFUNGAL CLEAR OINTMENT TO ALL REDDENED SKIN AREAS PRESCRIBED BY MD. WOUND PHOTO TAKEN FOR REFERENCE. RECOMMEND: CONTINUATION WITH ALL WOUND CARE ORDERS PREVIOUSLY PRESCRIBED BY MD. WOUND CARE TEAM WILL CONTINUE TO MONITOR. Addendum: 10/13/20 at 1554 by Malgorzata Palomino RN Amended: Links added.
--- NOTE | 2020-10-13 12:23 | NUR ---
Midline Placement: Patient educated on need for midline replacement. All risks and benefits explained and all questions and concerns addresses prior to procedure. 4f/ 20 cm midline inserted via right basilic vein using Ultrasound. Replaced existing midline over the wire exchange as pts midline was out at 5 cm. Sterile technique utilized. Blood return obtained from the single lumen and flushed easily with NS using proper technique. Midline secured with saline lock; biodisc and occlusive dressing applied. Primary RN Mami notified. Midline lot # [id number]
--- NOTE | 2020-10-13 16:53 | NUR ---
Consultation Assessment Patient is a 65 year old female, who is alert and oriented. Patient cognitive abilities are intact. Patient stated that prior to admission to [facility], she could do all ADL's and ambulates with a cane and walker. Patient states that she has medical history of being a diabetic. Patient stated that she lives with her son and daughter, prior to admission to [facility], patient was in the process of moving into her own residence. Patient stated that she will reside with one of her children post discharge. Patient stated that she receives [employer] as income. Patient stated that one of her children will provide transportation post discharge. Patient is receptive to receive Advance Directive forms. Discharge planning: Patient will return home post discharge, patient will follow up with PCP post discharge. Patient will resume diabetic home care post discharge. will provide Advance Directive forms to patient. Patient has no other post discharge needs to identify at the moment. Addendum: 10/13/20 at 1700 by SIGIFREDO COLLAZO Amended: Links added.
[2020-10-13] MEDS: metFORMIN HYDROCHLORIDE 500 MG TAB PO SCH (18:12)
--- NOTE | 2020-10-13 18:13 | NUR ---
ATTEMPTED TO CALL REPORT Called Ivan enriquez at to information systems administrator report for the nurse that is taking room 23A. Was placed on hold for 15 minutes and the call was answered and hung up. Will try again later.
--- NOTE | 2020-10-13 18:45 | NUR ---
UNABLE TO GIVE REPORT
--- NOTE | 2020-10-13 19:48 | NUR ---
Spoke to Benjie BENTLEY from [facility] to give report. Cindi also called to say that they will be coming to pick her up in 30 mins
--- NOTE | 2020-10-13 20:10 | NUR ---
Received a call back from [facility]. Benjie stated that there was a positive COVID patient, so they are not able to receive any patients at this time. Told head charger about status. Will call hospitalist to continue care.
--- NOTE | 2020-10-13 22:38 | NUR ---
Spoke to hospitalist about patient's discharge. Was told to continue care.
--- NOTE | 2020-10-13 23:20 | NUR ---
received an order from CN to take over pt's care
[2020-10-14] MEDS: ACCU-CHEK COMFORT CURVE STRIP VI SCH ×3 (00:49→12:24)
[2020-10-14] MEDS: InsuLIN REG 1unit/0.01ml Soln (100units/ml) SC SCH ×3 (00:50→12:00)
[2020-10-14] MEDS: HYDROcodone-ACET 5/325MG TAB PO PRN ×2 (01:17→12:00)
[2020-10-14 05:24] VITALS: BP 154/101
[2020-10-14] MEDS: GABAPENTIN 100 MG CAP PO SCH ×2 (05:58→14:00)
[2020-10-14] MEDS: VANCOMYCIN 750mg/250ml 250 ML IV SCH (06:45)
--- NOTE | 2020-10-14 07:30 | NUR ---
closing note endorsed care to SHEREE Goodrich. No sign of distress/pain at this time
[2020-10-14] MEDS: metFORMIN HYDROCHLORIDE 500 MG TAB PO SCH (08:00)
[2020-10-14 08:49] LABS: Hepatitis B Surface Antigen Negative (Negative)
[2020-10-14 09:00] VITALS: BP 138/92
--- NOTE | 2020-10-14 09:20 | NUR ---
Dr. Ivory at [facility]
[2020-10-14] MEDS ORDERED: amLODIPine BESYLATE 5 MG TAB PO SCH (10:00)
[2020-10-14] MEDS ORDERED: LOSARTAN POTASSIUM 25 MG TAB PO SCH (10:00)
[2020-10-14] MEDS: INSULIN LANTUS (GLARGINE) 1 /0.01ml (100units/ml) SC SCH (10:00)
[2020-10-14] MEDS ORDERED: PANTOPRAZOLE 40 MG TAB PO SCH (10:00)
[2020-10-14] MEDS: MICAFUNGIN SODIUM 100 MG in SODIUM CHL 0.9% 100 ML IV SCH (10:24)
[2020-10-14] MEDS: ALLOPURINOL 100 MG TAB PO SCH (10:25)
[2020-10-14] MEDS: ENOXAPARIN SOD 40 MG/0.4 ML SYRINGE SC SCH (10:26)
[2020-10-14 10:54] LABS: BUN/Creatinine Ratio 9.9; Calcium 8.5 mg/dL (8.5-10.1); Potassium 3.9 mmol/L (3.5-5.1)
[2020-10-14 13:00] VITALS: BP 136/92
--- NOTE | 2020-10-14 14:11 | NUR ---
Report called in to [facility] to Odalis RN . Will await transport
--- NOTE | 2020-10-14 16:40 | NUR ---
Discharge instructions given as ordered. Encourage to follow up with PMD as instructed. All questions and concerns addressed. Patient verbalized understanding. Medication reconciliation form completed and copy given to patient. Patient Dc'd with IV access to be cared for at [facility]. Patient taken by [facility] with all personal belongings. No distress noted at time of departure.
--- NOTE | 2020-10-14 16:42 | NUR ---
Per MD Ivory call [facility] and have the discontinue Fluconazole PO d/t pt already on Micafungin IV. Receiving RN unable to answer call at this time, best phone number with extension for call back provided. Will await call back for message delivery.
[2020-10-14 16:47] VITALS: BP 125/81
--- NOTE | 2020-10-14 16:49 | NUR ---
Received call back from SHEREE Jacobo with [facility]. RN verbalizes understanding of changes to med rec.
[2020-10-15 11:14] LABS: Hepatitis A Ab IgM Negative
[2020-10-15 11:58] LABS: Hepatitis C Antibody Negative (Negative)
[2020-10-15 12:00] LABS: Hepatitis B Core Total AB Negative
[2020-10-15 12:01] LABS: Hepatitis B Surface Antibody Negative
== END 2020-10-14 16:45 | DRG 368 ==
LOC: EDBD 22:08 → ER 22:10 → OVERFLOW 22:11 → WEST WING 10-07 04:21
PROVIDERS: ADMIT Nurse Practitioner; ATTEND Internal Medicine
PROC: 0DB68ZX Excision of Stomach, Via Natural or Artificial Opening Endoscopic, Diagnostic (ICD-10-PCS; 2020-10-08)
PROC: 0D758ZZ Dilation of Esophagus, Via Natural or Artificial Opening Endoscopic (ICD-10-PCS; 2020-10-08)
PROC: 0DB58ZX Excision of Esophagus, Via Natural or Artificial Opening Endoscopic, Diagnostic (ICD-10-PCS; principal; 2020-10-08 09:45)
PROC: B246ZZ4 Ultrasonography of Right and Left Heart, Transesophageal (ICD-10-PCS; 2020-10-12)
DX: B37.81 Candidal esophagitis (principal); N17.0 Acute kidney failure with tubular necrosis; E44.0 Moderate protein-calorie malnutrition; Z68.41 Body mass index [BMI] 40.0-44.9, adult; K29.70 Gastritis, unspecified, without bleeding; B37.89 Other sites of candidiasis; E86.0 Dehydration; E66.01 Morbid (severe) obesity due to excess calories; R13.19 Other dysphagia; B96.20 Unspecified Escherichia coli [E. coli] as the cause of diseases classified elsewhere; B96.81 Helicobacter pylori [H. pylori] as the cause of diseases classified elsewhere; E11.65 Type 2 diabetes mellitus with hyperglycemia; F12.90 Cannabis use, unspecified, uncomplicated; F14.10 Cocaine abuse, uncomplicated; F17.210 Nicotine dependence, cigarettes, uncomplicated; D75.1 Secondary polycythemia; F19.10 Other psychoactive substance abuse, uncomplicated; B95.7 Other staphylococcus as the cause of diseases classified elsewhere; I12.9 Hypertensive chronic kidney disease with stage 1 through stage 4 chronic kidney disease, or unspecified chronic kidney disease; E11.22 Type 2 diabetes mellitus with diabetic chronic kidney disease; N18.30 Chronic kidney disease, stage 3 unspecified; Z20.828 Contact with and (suspected) exposure to other viral communicable diseases; Z79.4 Long term (current) use of insulin; Z79.899 Other long term (current) drug therapy; Z82.49 Family history of ischemic heart disease and other diseases of the circulatory system; Z83.2 Family history of diseases of the blood and blood-forming organs and certain disorders involving the immune mechanism; Z83.3 Family history of diabetes mellitus; Z87.440 Personal history of urinary (tract) infections; Z90.49 Acquired absence of other specified parts of digestive tract
CPT/HCPCS: 36415; 43239; 71045; 71250; 73630; 74176; 80048; 80053; 80202; 80307; 81001; 82962; 83036; 83690; 83880; 84484; 84550; 85025; 85610; 85652; 85730; 86703; 86704; 86706; 86709; 86803; 87040; 87077; 87086; 87186; 87205; 87340; 93005; 93312; 96365; 96372; 96375; 99152; G0378; J0696; J1335; J1450; J1815; J2248; J2250; J2405; J3430

== ENCOUNTER 2020-12-24 09:35 | Emergency (ER) | payer MEDICARE, MEDICAID ==
[~2020-12-24] VITALS: Ht 162.6 cm; Wt 136.1 kg
[2020-12-24 10:00] VITALS: BP 122/74
[2020-12-24] MEDS ORDERED: ACETAMINOPHEN 500 MG TAB PO ONE (10:30)
== END 2020-12-24 13:05 | disposition home or self-care (01) ==
LOC: ER 09:35 → EDBD 09:35 → ER 13:05
DX: R51.9 Headache, unspecified (principal); E66.01 Morbid (severe) obesity due to excess calories; E11.9 Type 2 diabetes mellitus without complications; I10 Essential (primary) hypertension; F17.210 Nicotine dependence, cigarettes, uncomplicated; F12.10 Cannabis abuse, uncomplicated; Z90.49 Acquired absence of other specified parts of digestive tract; Z68.43 Body mass index [BMI] 50.0-59.9, adult
CPT/HCPCS: 70450

== ENCOUNTER 2021-04-07 16:44 | Emergency (ER) | payer BC, MEDICAID ==
[~2021-04-07] VITALS: Ht 170.2 cm; Wt 117.9 kg
[2021-04-07] MEDS ORDERED: PANTOPRAZOLE 40 MG/10 ML VIAL INJ IV STA (17:12)
[2021-04-07] MEDS ORDERED: SODIUM CHLORIDE 0.9% 500 ML IVB ONE (17:15)
[2021-04-07] MEDS ORDERED: ONDANSETRON HCL 4 MG/2 ML VIAL IV ONE (17:15)
[2021-04-07 18:06] LABS: Basophils # (auto) 0.1 10 ^3/uL (0-0.2); Basophils % (auto) 0.6 % (0.0-2.0); Eosinophils # (auto) 0.4 10 ^3/uL (0-0.8); Monocytes # (auto) 0.5 10 ^3/uL (0-1.3)
[2021-04-07 18:08] LABS: Eosinophils % (auto) 2.8 % (0.0-7.0); Hematocrit 54.4 % (36.0-46.0); Hemoglobin 18.5 g/dL (12.2-16.2); Lymphocytes # (auto) 2.2 10 ^3/uL (0.4-5.4); Lymphocytes % (auto) 17.4 % (10.0-50.0); Mean Corpuscular Hemoglobin 27.6 pg (28.0-32.0); Mean Corpuscular Volume 81.1 fL (80.0-100.0); Monocytes % (auto) 3.9 % (0.0-12.0); Neutrophils # (auto) 9.5 10 ^3/uL (1.6-8.6); Neutrophils % (auto) 75.3 % (37.0-80.0); Nucleated Red Blood Cells % 0.6 %; Red Blood Cells 6.71 10^6/uL (4.0-5.20); Red Cell Distribution Width 17.6 % (11.8-14.3); White Blood Cell 12.7 10^3/uL (4.4-10.8)
[2021-04-07 18:28] LABS: Albumin 3.2 g/dL (3.4-5.0); Calcium 8.8 mg/dL (8.5-10.1); Potassium 4.5 mmol/L (3.5-5.1)
[2021-04-07 18:32] LABS: BUN/Creatinine Ratio 16.8; Bilirubin, Total 0.6 mg/dL (0.2-1.0); Total Protein 7.9 g/dL (6.4-8.2)
[2021-04-07 19:56] LABS: Urine Bacteria NONE SEEN /hpf (None Seen); Urine Blood Negative /uL (Negative); Urine Specific Gravity 1.016 (1.001-1.035); Urine WBC 3 /hpf (0 - 5)
[2021-04-07 22:00] VITALS: BP 130/82
== END 2021-04-07 22:49 | disposition home or self-care (01) ==
LOC: ER 16:44
DX: R10.13 Epigastric pain (principal); R11.0 Nausea; I10 Essential (primary) hypertension; E11.9 Type 2 diabetes mellitus without complications; F17.210 Nicotine dependence, cigarettes, uncomplicated; Z90.49 Acquired absence of other specified parts of digestive tract; Z79.4 Long term (current) use of insulin; Z79.899 Other long term (current) drug therapy; Z87.440 Personal history of urinary (tract) infections; Z98.890 Other specified postprocedural states
CPT/HCPCS: 36415; 74176; 80053; 81001; 82150; 83690; 85025; 96361; 96374; 96375; 99284; C9113; J2405

== ENCOUNTER 2021-06-28 14:21 | Emergency (ER) | payer BC, MEDICAID ==
[~2021-06-28] VITALS: Ht 167.6 cm; Wt 130.6 kg
[2021-06-28] MEDS ORDERED: InsuLIN REG 1unit/0.01ml Soln (100units/ml) IV ONE (15:45)
[2021-06-28] MEDS ORDERED: SODIUM CHLORIDE 0.9% 1,000 ML IV ONE ×2 (15:45)
[2021-06-28 16:35] LABS: Basophils # (auto) 0.1 10 ^3/uL (0-0.2); Eosinophils # (auto) 0.4 10 ^3/uL (0-0.8); Lymphocytes # (auto) 2.3 10 ^3/uL (0.4-5.4); Monocytes # (auto) 0.4 10 ^3/uL (0-1.3); Red Blood Cells 7.74 10^6/uL (4.0-5.20)
[2021-06-28 16:37] LABS: Hematocrit 55.9 % (36.0-46.0); Hemoglobin 18.2 g/dL (12.2-16.2); Lymphocytes % (auto) 15.5 % (10.0-50.0); Mean Corpuscular Hemoglobin 23.5 pg (28.0-32.0); Mean Corpuscular Hgb Conc. 32.6 g/dL (32.0-36.0); Mean Corpuscular Volume 72.2 fL (80.0-100.0); Monocytes % (auto) 2.7 % (0.0-12.0); Neutrophils # (auto) 11.4 10 ^3/uL (1.6-8.6); Neutrophils % (auto) 77.8 % (37.0-80.0); Nucleated Red Blood Cells % 0.8 %; White Blood Cell 14.6 10^3/uL (4.4-10.8)
[2021-06-28 16:53] LABS: Chloride 110 mmol/L (98-107); Potassium 4.7 mmol/L (3.5-5.1); Sodium 137 mmol/L (136-145)
[2021-06-28 17:02] LABS: Alanine Aminotransferase 25 U/L (13-56); Albumin 2.8 g/dL (3.4-5.0); Alkaline Phosphatase 119 U/L (45-117); Anion Gap 5 (5-15); Aspartate Aminotransferase 20 U/L (15-37); BUN/Creatinine Ratio 14.7; Bilirubin, Total 0.6 mg/dL (0.2-1.0); Blood Urea Nitrogen 34 mg/dL (7-18); Carbon Dioxide 22 mmol/L (21-32); GFR African American 27 mL/min; GFR Non-African American 22 mL/min; Glucose 297 mg/dL (74-106); Total Protein 7.8 g/dL (6.4-8.2)
[2021-06-28 20:30] VITALS: BP 141/98
== END 2021-06-28 20:40 | disposition home or self-care (01) ==
LOC: EDBD 14:21 → ER 14:41
DX: I16.0 Hypertensive urgency (principal); E11.65 Type 2 diabetes mellitus with hyperglycemia; F17.210 Nicotine dependence, cigarettes, uncomplicated; Z90.49 Acquired absence of other specified parts of digestive tract; Z79.4 Long term (current) use of insulin; Z79.899 Other long term (current) drug therapy
CPT/HCPCS: 36415; 71045; 80053; 82962; 83036; 83880; 84484; 85025; 93005

== ENCOUNTER 2023-01-07 05:46 | Emergency (ER) | payer OTHER ==
[~2023-01-07] VITALS: Ht 162.6 cm; Wt 200.0 kg
[2023-01-07 07:22] LABS: Eosinophils # (auto) 0.5 10 ^3/uL (0-0.8); Monocytes # (auto) 0.4 10 ^3/uL (0-1.3)
[2023-01-07 07:25] LABS: Basophils # (auto) 0.1 10 ^3/uL (0-0.2); Basophils % (auto) 0.9 % (0.0-2.0); Eosinophils % (auto) 3.6 % (0.0-7.0); Hematocrit 53.2 % (36.0-46.0); Hemoglobin 17.1 g/dL (12.2-16.2); Lymphocytes # (auto) 1.8 10 ^3/uL (0.4-5.4); Lymphocytes % (auto) 12.1 % (10.0-50.0); Mean Corpuscular Hemoglobin 21.8 pg (28.0-32.0); Mean Corpuscular Hgb Conc. 32.2 g/dL (32.0-36.0); Mean Corpuscular Volume 67.6 fL (80.0-100.0); Monocytes % (auto) 2.8 % (0.0-12.0); Neutrophils % (auto) 80.6 % (37.0-80.0); Nucleated Red Blood Cells % 0.4 %; Red Blood Cells 7.87 10^6/uL (4.0-5.20); White Blood Cell 14.9 10^3/uL (4.4-10.8)
[2023-01-07 07:26] LABS: Albumin 2.9 g/dL (3.4-5.0); BUN/Creatinine Ratio 13.6; Bilirubin, Total 1.1 mg/dL (0.2-1.0); Calcium 8.9 mg/dL (8.5-10.1)
[2023-01-07 07:28] LABS: Red Cell Distribution Width 21.7 % (11.8-14.3)
[2023-01-07] MEDS ORDERED: LACTATED RINGER'S 2,000 ML IV ONE (07:30)
[2023-01-07 08:12] LABS: Magnesium 2.2 mg/dL (1.6-2.6)
[2023-01-07 08:15] LABS: Phosphorus 3.5 mg/dL (2.5-4.90)
[2023-01-07 08:19] LABS: Potassium 5.7 mmol/L (3.5-5.1)
[2023-01-07] MEDS ORDERED: diphenhdrAMINE HCL 50 MG/1 ML VL IV ONE (08:45)
[2023-01-07] MEDS ORDERED: MAGNESIUM SULFATE 1GM/100ML 100 ML IV ONE (08:45)
[2023-01-07] MEDS ORDERED: HYDROcodone-ACET 5/325MG TAB PO ONE (08:45)
[2023-01-07] MEDS ORDERED: DexAMETHasone SOD PHOS 10MG/1ML VIAL INJ IV ONE (08:45)
[2023-01-07] MEDS ORDERED: METOCLOPRAMIDE HCL 5MG/ml INJ 2ml VIAL IV ONE (08:45)
[2023-01-07 10:07] LABS: Albumin 3.1 g/dL (3.4-5.0); Calcium 8.9 mg/dL (8.5-10.1); Potassium 4.8 mmol/L (3.5-5.1)
[2023-01-07 10:10] LABS: BUN/Creatinine Ratio 13.7; Bilirubin, Total 1.2 mg/dL (0.2-1.0); Total Protein 7.1 g/dL (6.4-8.2)
[2023-01-07] MEDS ORDERED: INSULIN LANTUS (GLARGINE) 1 /0.01ml (100units/ml) SC ONE (10:15)
[2023-01-07] MEDS ORDERED: InsuLIN REG 1unit/0.01ml Soln (100units/ml) IV ONE (12:15)
[2023-01-07 20:45] VITALS: BP 151/94
[2023-01-07] MEDS ORDERED: InsuLIN REG 1unit/0.01ml Soln (100units/ml) SC ONE (20:45)
[2023-01-07] MEDS ORDERED: cloNIDine HCL 0.1 MG TAB PO ONE (20:45)
== END 2023-01-07 20:00 | disposition home or self-care (01) ==
LOC: ER 05:46 → EDBD 05:46 → ER 20:00
DX: E11.65 Type 2 diabetes mellitus with hyperglycemia (principal); R51.9 Headache, unspecified; I16.0 Hypertensive urgency; I10 Essential (primary) hypertension; N17.9 Acute kidney failure, unspecified; F17.210 Nicotine dependence, cigarettes, uncomplicated; Z90.49 Acquired absence of other specified parts of digestive tract; Z86.73 Personal history of transient ischemic attack (TIA), and cerebral infarction without residual deficits
CPT/HCPCS: 36415; 36600; 70450; 71045; 80053; 82010; 82805; 82962; 83605; 83690; 83735; 83880; 83930; 84100; 84132; 84484; 85025; 93005; 96361; 96365; 96372; 96375; 99285; J1100; J1200; J1815; J2765; J3475

== ENCOUNTER 2023-05-24 10:29 | Emergency (ER) | payer OTHER ==
[~2023-05-24] VITALS: Ht 170.2 cm; Wt 118.1 kg
[~2023-05-24 10:29] MED LIST changes: -LOSA-69 PO; +LOSA50TA46 PO
[2023-05-24] MEDS ORDERED: MECLIZINE HCL 25 MG TAB PO ONE (10:45)
[2023-05-24] MEDS ORDERED: SODIUM CHLORIDE 0.9% 500 ML IV ONE (10:45)
[2023-05-24 11:21] LABS: Basophils # (auto) 0.2 10 ^3/uL (0-0.2); Eosinophils # (auto) 0.5 10 ^3/uL (0-0.8); Nucleated Red Blood Cells % 0.4 %
[2023-05-24 11:23] LABS: Basophils % (auto) 0.9 % (0.0-2.0); Eosinophils % (auto) 2.7 % (0.0-7.0); Hematocrit 53.8 % (36.0-46.0); Lymphocytes # (auto) 2.1 10 ^3/uL (0.4-5.4); Lymphocytes % (auto) 10.9 % (10.0-50.0); Mean Corpuscular Hemoglobin 20.5 pg (28.0-32.0); Mean Corpuscular Hgb Conc. 31.6 g/dL (32.0-36.0); Monocytes # (auto) 0.6 10 ^3/uL (0-1.3); Monocytes % (auto) 3.1 % (0.0-12.0); Neutrophils # (auto) 15.5 10 ^3/uL (1.6-8.6); Neutrophils % (auto) 82.4 % (37.0-80.0); Red Blood Cells 8.28 10^6/uL (4.0-5.20); White Blood Cell 18.8 10^3/uL (4.4-10.8)
[2023-05-24 11:24] LABS: INR 1.1 (0.9-1.15); Partial Thromboplastin Time 38.2 SEC (24.5-34.5)
[2023-05-24 11:27] LABS: Red Cell Distribution Width 22.7 % (11.8-14.3)
[2023-05-24] MEDS ORDERED: cefTRIAXone 1GM/50ML D5W 50 ML IV ONE (11:45)
[2023-05-24 12:04] LABS: Potassium 3.8 mmol/L (3.5-5.1)
[2023-05-24 12:13] LABS: Albumin 2.4 g/dL (3.4-5.0); BUN/Creatinine Ratio 12.9 (10.0-20.0); Bilirubin, Total 0.6 mg/dL (0.2-1.0); Calcium 8.3 mg/dL (8.5-10.1); Magnesium 2.2 mg/dL (1.6-2.6); Total Protein 6.5 g/dL (6.4-8.2)
[2023-05-24] MEDS ORDERED: IOHEXOL 300 MG/ML 100ML BOTTLE IJ ONE (12:28)
[2023-05-24] MEDS ORDERED: MECL1TAB31 PO (13:26)
[2023-05-24] MEDS ORDERED: CEPH500T PO (13:26)
[2023-05-24 18:35] VITALS: BP 113/68
== END 2023-05-24 18:51 | disposition home or self-care (01) ==
LOC: EDBD 10:29 → EDUNIT# 10:29 → ER 10:29
DX: R42 Dizziness and giddiness (principal); N39.0 Urinary tract infection, site not specified; M19.90 Unspecified osteoarthritis, unspecified site; I63.9 Cerebral infarction, unspecified; I10 Essential (primary) hypertension; E11.9 Type 2 diabetes mellitus without complications; K80.20 Calculus of gallbladder without cholecystitis without obstruction; F17.210 Nicotine dependence, cigarettes, uncomplicated; Z90.49 Acquired absence of other specified parts of digestive tract; Z79.4 Long term (current) use of insulin; Z79.84 Long term (current) use of oral hypoglycemic drugs; Z79.899 Other long term (current) drug therapy
CPT/HCPCS: 36415; 71045; 74177; 80053; 82962; 83735; 83880; 84484; 85025; 85610; 85730; 93005; 96365; 99285; J0696; J8597; Q9967

== ENCOUNTER 2024-08-19 13:15 | Inpatient (IN) | payer OTHER ==
[2024-08-19] VITALS (7 sets, daily range): BP systolic 95; BP diastolic 35; PULSE 83–88; RESP 13–24; O2SAT 86–94
[~2024-08-19] VITALS: Ht 167.6 cm; Wt 127.9 kg
[~2024-08-19 13:15] MED LIST changes: +CEPH500T PO; +LOSA-534 PO; -LOSA50TA46 PO; +MECL12.586 PO
[2024-08-19 15:03] LABS: Hemoglobin 18.1 g/dL (12.2-16.2)
[2024-08-19 15:04] LABS: Mean Corpuscular Hemoglobin 25.8 pg (28.0-32.0); Mean Corpuscular Hgb Conc. 32.2 g/dL (32.0-36.0); Mean Corpuscular Volume 80.1 fL (80.0-100.0); Platelet Count (auto) 416 10^3/uL (140-450); Red Blood Cells 7.02 10^6/uL (4.0-5.20); Red Cell Distribution Width 19.6 % (11.8-14.3); White Blood Cell 26.6 10^3/uL (4.4-10.8)
[2024-08-19 15:06] LABS: Hematocrit 56.2 % (36.0-46.0)
[2024-08-19 15:07] LABS: Basophils % (manual) 0 (0.0-2.0); Blast Cells 0; Metamyelocytes % 0; Myelocytes % 0; Promyelocytes % 0; Reactive Lymphocytes 0
[2024-08-19 15:26] LABS: Alanine Aminotransferase 16 U/L (7-40); Albumin 3.3 g/dL (3.2-4.8); Alkaline Phosphatase 96 U/L (46-116); Anion Gap 8 (5-15); Aspartate Aminotransferase < 8 U/L (13-40); BUN/Creatinine Ratio 38.3 (10.0-20.0); Bilirubin, Total 0.3 mg/dL (0.2-1.0); Calcium 8.2 mg/dL (8.7-10.4); Carbon Dioxide 20 mmol/L (20-30); Chloride 108 mmol/L (98-107); Glucose 110 mg/dL (74-106); Sodium 136 mmol/L (136-145); Total Protein 6.2 g/dL (5.7-8.2)
[2024-08-19 15:34] LABS: Blood Urea Nitrogen 97 mg/dL (9-23); Potassium 7.1 mmol/L (3.5-5.1)
[2024-08-19] MEDS: DEXTROSE (50%) 50ML SYRG IV ONE (16:15)
[2024-08-19] MEDS: ALBUTEROL SULF 2.5 MG/0.5ML(0.5%) NEB SOLN NEB ONE (16:29)
[2024-08-19 16:42] LABS: Band Neutrophils % (manual) 3; Eosinophils % (manual) 2 (0-7); Lymphocytes % (manual) 6 (10.0-50.0); Monocytes % (manual) 6 (0-12)
[2024-08-19 16:57] LABS: Anisocytosis Slight; Large Platelets FEW; Platelet Estimate Adequate
[2024-08-19] MEDS ORDERED: TEMAZEPAM 15 MG CAP PO PRN (17:45)
[2024-08-19] MEDS ORDERED: ACETAMINOPHEN 325 MG TAB PO PRN (17:45)
[2024-08-19] MEDS ORDERED: ONDANSETRON HCL 4 MG/2 ML VIAL IV PRN (17:45)
[2024-08-19] MEDS ORDERED: NITROGLYCERIN 0.4 MG SL TAB SL PRN ×2 (17:45→19:30)
[2024-08-19] MEDS ORDERED: MORPHINE SULFATE INJ 2 MG/ml SYRG IV PRN ×2 (17:45→19:30)
[2024-08-19] MEDS: CALCIUM GLUC 1,000mg/50ml-NS 50 ML IV ONE (17:54)
[2024-08-19] MEDS ORDERED: PIPERACILLIN-TAZOB 2.25GM 50 ML IV SCH (18:00)
[2024-08-19] MEDS: PIPERACILLIN-TAZOB 3.375GM 100 ML IV ONE (18:04)
[2024-08-19] MEDS: FUROSEMIDE 40 MG/4 ML VIAL IV ONE (18:04)
[2024-08-19] MEDS: SODIUM CHLORIDE 0.9% 500 ML IV ONE (18:30)
[2024-08-19] MEDS: SODIUM BICARB 8.4% 50Meq/50ml SYR INJ IV ONE (18:33)
[2024-08-19] MEDS: ALBUTEROL SULF 2.5 MG/0.5ML(0.5%) NEB SOLN ONE (18:42)
[2024-08-19] MEDS: ALBUTEROL SULF 2.5 MG/0.5ML(0.5%) NEB SOLN NEB SCH (18:42)
[2024-08-19] MEDS: IPRATROPIUM BROM 0.5 MG/2.5ML INH SOL NEB SCH (18:42)
[2024-08-19] MEDS: InsuLIN REG 1unit/0.01ml Soln (100units/ml) IV ONE (18:48)
[2024-08-19] MEDS: methylPREDNISolone SOD SUCC 125 MG/2 ML VL IV SCH (19:02)
[2024-08-19] MEDS: NOREPINEPHRINE 8 MG/250ML KIT 250 ML IV SCH (19:15)
[2024-08-19] MEDS ORDERED: DEXTROSE (50%) 50ML SYRG IV PRN (20:00)
[2024-08-19 20:17] LABS: Alanine Aminotransferase 11 U/L (7-40); Alkaline Phosphatase 83 U/L (46-116); Anion Gap 7 (5-15); Aspartate Aminotransferase < 8 U/L (13-40); BUN/Creatinine Ratio 25.7 (10.0-20.0); Carbon Dioxide 19 mmol/L (20-30); Chloride 110 mmol/L (98-107); Glucose 157 mg/dL (74-106); Sodium 136 mmol/L (136-145)
[2024-08-19 20:18] LABS: Bilirubin, Total 0.3 mg/dL (0.2-1.0); Blood Urea Nitrogen 64 mg/dL (9-23); Total Protein 5.9 g/dL (5.7-8.2)
[2024-08-19 20:23] LABS: Potassium 6.2 mmol/L (3.5-5.1)
[2024-08-19 20:27] LABS: Base Excess -9.6 mmol/L (-2.0-3.0)
[2024-08-19] MEDS: ALBUMIN 25% 50 ML IV ONE (21:29)
[2024-08-19] MEDS: ACCU-CHEK COMFORT CURVE STRIP VI SCH (22:00)
[2024-08-19] MEDS: CEFEPIME 1GM/ 50ML 50 ML IV SCH (22:29)
[2024-08-19] MEDS: InsuLIN REG 1unit/0.01ml Soln (100units/ml) SC SCH (22:48)
[2024-08-19 23:38] LABS: COVID19 ANTIGEN SOFIA FIA NEGATIVE (NEGATIVE)
[2024-08-19] MEDS: SODIUM BICARB 8.4% 50Meq/50ml SYR Vial IV ONE (23:56)
[2024-08-19 23:59] LABS: Creatinine, Urine 63.89 mg/dL (30.0-125.0)
[2024-08-20] VITALS (15 sets, daily range): PULSE 66–78; RESP 16–26; O2SAT 70–98
[2024-08-20 00:05] LABS: Urine Bacteria MANY /hpf (None Seen); Urine Blood 2+ /uL (Negative); Urine Clarity Ex.Turbid (Clear); Urine Color Light-Brown (Yellow); Urine Protein, UAD 1+ (Negative); Urine Specific Gravity 1.009 (1.001-1.035); Urine Urobilinogen Normal (Negative); Urine WBC 4941 /hpf (0 - 5); Urine WBC Clumps PRESENT /hpf (None Seen); Urine pH 5.5 (5.0-9.0)
[2024-08-20 05:33] LABS: Hematocrit 55.2 % (36.0-46.0); Hemoglobin 18.7 g/dL (12.2-16.2); Mean Corpuscular Hemoglobin 26.9 pg (28.0-32.0); Mean Corpuscular Volume 79.3 fL (80.0-100.0); Platelet Count (auto) 363 10^3/uL (140-450); Red Blood Cells 6.96 10^6/uL (4.0-5.20); Red Cell Distribution Width 18.8 % (11.8-14.3)
[2024-08-20 05:42] LABS: Alanine Aminotransferase 13 U/L (7-40); Albumin 3.5 g/dL (3.2-4.8); Alkaline Phosphatase 87 U/L (46-116); Anion Gap 8 (5-15); Aspartate Aminotransferase 9 U/L (13-40); BUN/Creatinine Ratio 27.3 (10.0-20.0); Bilirubin, Total 0.4 mg/dL (0.2-1.0); Blood Urea Nitrogen 69 mg/dL (9-23); Calcium 8.4 mg/dL (8.7-10.4); Carbon Dioxide 21 mmol/L (20-30); Chloride 108 mmol/L (98-107); Glucose 206 mg/dL (74-106); Sodium 137 mmol/L (136-145); Total Protein 6.7 g/dL (5.7-8.2)
[2024-08-20 06:14] LABS: White Blood Cell 30.4 10^3/uL (4.4-10.8)
[2024-08-20 06:15] LABS: Basophils % (manual) 0 (0.0-2.0); Blast Cells 0; Myelocytes % 0; Promyelocytes % 0; Reactive Lymphocytes 0
[2024-08-20 06:23] LABS: Potassium 7.3 mmol/L (3.5-5.1)
[2024-08-20] MEDS: SODIUM BICARB 50mEq/50ml Vial 150 ML in D5W 5% 1,000 ML IV SCH (06:30)
[2024-08-20] MEDS: SODIUM ZIRCONIUM CYCL 10 GM PAK PO ONE (06:42)
[2024-08-20] MEDS: InsuLIN REG 1unit/0.01ml Soln (100units/ml) SC SCH (07:03)
[2024-08-20 08:14] LABS: Band Neutrophils % (manual) 2; Eosinophils % (manual) 1 (0-7); Lymphocytes % (manual) 9 (10.0-50.0); Metamyelocytes % 3; Monocytes % (manual) 3 (0-12)
[2024-08-20 08:15] LABS: Platelet Estimate Adequate
[2024-08-20] MEDS ORDERED: AMLO1TAB23 PO (11:38)
[2024-08-20] MEDS ORDERED: LISI20TA56 PO (11:38)
[2024-08-20] MEDS ORDERED: GLIM4TAB42 PO (11:38)
[2024-08-20] MEDS ORDERED: HYDR25TA5 PO (11:38)
[2024-08-20] MEDS ORDERED: EMPA1TAB PO (11:38)
[2024-08-20] MEDS ORDERED: GABA-1308 PO (11:38)
[2024-08-20 11:44] LABS: Anion Gap 9 (5-15); Carbon Dioxide 22 mmol/L (20-30); Chloride 108 mmol/L (98-107); Sodium 139 mmol/L (136-145)
[2024-08-20 11:45] LABS: Calcium 8.5 mg/dL (8.7-10.4)
[2024-08-20] MEDS ORDERED: INSU1INJ19 SC (11:46)
[2024-08-20 11:50] LABS: BUN/Creatinine Ratio 29.3 (10.0-20.0); Blood Urea Nitrogen 76 mg/dL (9-23); Glucose 145 mg/dL (74-106)
[2024-08-20] MEDS: HYDROcodone-ACET 10/325MG TAB PO PRN (12:13)
[2024-08-20 12:17] LABS: Potassium 6.8 mmol/L (3.5-5.1)
[2024-08-20] MEDS ORDERED: VANCOMYCIN PER PHARMACY 0 MG IV SCH (13:00)
[2024-08-20] MEDS: VANCOMYCIN 1GM/200ML 200 ML IV SCH (13:00)
[2024-08-20] MEDS: SODIUM CHLORIDE 0.9% 1,000 ML IV ONE (13:30)
[2024-08-20] MEDS: BUMETANIDE 2.5mg/10ml (0.25 mg/ml) INJ IV ONE (14:35)
[2024-08-20] MEDS: NOREPINEPHRINE 8 MG/250ML KIT 250 ML IV SCH (18:16)
[2024-08-20 20:23] LABS: Hemoglobin 19.2 g/dL (12.2-16.2); Mean Corpuscular Hemoglobin 25.8 pg (28.0-32.0); Mean Corpuscular Volume 78.2 fL (80.0-100.0); Platelet Count (auto) 531 10^3/uL (140-450); Red Blood Cells 7.44 10^6/uL (4.0-5.20); Red Cell Distribution Width 19.3 % (11.8-14.3)
[2024-08-20 20:24] LABS: Hematocrit 58.2 % (36.0-46.0)
[2024-08-20 20:26] LABS: White Blood Cell 44.1 10^3/uL (4.4-10.8)
[2024-08-20 20:27] LABS: Basophils % (manual) 0 (0.0-2.0); Blast Cells 0; Eosinophils % (manual) 0 (0-7); Metamyelocytes % 0; Myelocytes % 0; Promyelocytes % 0; Reactive Lymphocytes 0
[2024-08-20 20:44] LABS: Alanine Aminotransferase 16 U/L (7-40); Albumin 3.9 g/dL (3.2-4.8); Alkaline Phosphatase 96 U/L (46-116); Anion Gap 10 (5-15); Aspartate Aminotransferase 9 U/L (13-40); Bilirubin, Total 0.4 mg/dL (0.2-1.0); Blood Urea Nitrogen 70 mg/dL (9-23); Calcium 8.5 mg/dL (8.7-10.4); Carbon Dioxide 20 mmol/L (20-30); Chloride 108 mmol/L (98-107); Glucose 83 mg/dL (74-106); Sodium 138 mmol/L (136-145)
[2024-08-20 20:45] LABS: Total Protein 7.5 g/dL (5.7-8.2)
[2024-08-20 20:48] LABS: Potassium 6.6 mmol/L (3.5-5.1)
[2024-08-20 21:19] LABS: Band Neutrophils % (manual) 6; Lymphocytes % (manual) 2 (10.0-50.0); Monocytes % (manual) 7 (0-12)
[2024-08-20 21:20] LABS: Large Platelets FEW; Platelet Estimate Increased
[2024-08-21] VITALS (11 sets, daily range): PULSE 64–79; RESP 11–20; O2SAT 94–99
[2024-08-21] MEDS: HEPARIN SODIUM (PORCINE) 5000 UNITS/ML 1ML VIAL SC SCH (00:44)
[2024-08-21] MEDS: LINEZOLID 600MG/300ML 300 ML IV SCH (02:28)
[2024-08-21 04:27] LABS: Mean Corpuscular Hemoglobin 26.1 pg (28.0-32.0)
[2024-08-21 04:32] LABS: Anion Gap 6 (5-15); Carbon Dioxide 20 mmol/L (20-30); Chloride 110 mmol/L (98-107); Hemoglobin 18.6 g/dL (12.2-16.2); Mean Corpuscular Hgb Conc. 32.8 g/dL (32.0-36.0); Mean Corpuscular Volume 79.8 fL (80.0-100.0); Platelet Count (auto) 486 10^3/uL (140-450); Red Cell Distribution Width 19.3 % (11.8-14.3); Sodium 136 mmol/L (136-145)
[2024-08-21 04:33] LABS: Calcium 8.2 mg/dL (8.7-10.4)
[2024-08-21 04:38] LABS: Glucose 265 mg/dL (74-106)
[2024-08-21 04:39] LABS: BUN/Creatinine Ratio 26.4 (10.0-20.0); Blood Urea Nitrogen 71 mg/dL (9-23)
[2024-08-21 04:46] LABS: Hematocrit 56.7 % (36.0-46.0)
[2024-08-21 04:47] LABS: White Blood Cell 40.9 10^3/uL (4.4-10.8)
[2024-08-21 04:48] LABS: Basophils % (manual) 0 (0.0-2.0); Blast Cells 0; Eosinophils % (manual) 0 (0-7); Metamyelocytes % 0; Myelocytes % 0; Potassium 6.9 mmol/L (3.5-5.1); Promyelocytes % 0; Reactive Lymphocytes 0
[2024-08-21 06:08] LABS: Band Neutrophils % (manual) 1; Monocytes % (manual) 2 (0-12)
[2024-08-21 06:09] LABS: Lymphocytes % (manual) 1 (10.0-50.0); Platelet Estimate Increased
[2024-08-21 06:10] LABS: Giant Platelets Few
[2024-08-21 06:11] LABS: Large Platelets MODERATE; Stomatocytes Few
[2024-08-21] MEDS: HYDROcodone-ACET 5/325MG TAB PO PRN (06:47)
[2024-08-21] MEDS: SODIUM CHLORIDE 0.9% 1,000 ML IV ONE (07:22)
[2024-08-21] MEDS: SODIUM ZIRCONIUM CYCL 10 GM PAK PO ONE (13:57)
[2024-08-21 15:20] LABS: Hepatitis B Surface Antigen Negative (Negative)
[2024-08-21 15:41] LABS: Hepatitis A Ab IgM Negative
[2024-08-21 15:42] LABS: Hepatitis B Core IgM Negative; Hepatitis C Antibody Negative (Negative)
[2024-08-21] MEDS: SODIUM CHL 0.9% 1000 ML BAG XX ONE (16:12)
[2024-08-22] VITALS (17 sets, daily range): BP systolic 106–125; BP diastolic 59–67; PULSE 60–86; RESP 15–20; TEMP 97.4–98.2; O2SAT 96–100
[2024-08-22 03:48] LABS: Hematocrit 50.2 % (36.0-46.0); Hemoglobin 16.5 g/dL (12.2-16.2); Mean Corpuscular Hemoglobin 26.1 pg (28.0-32.0); Mean Corpuscular Hgb Conc. 32.9 g/dL (32.0-36.0); Mean Corpuscular Volume 79.2 fL (80.0-100.0); Platelet Count (auto) 350 10^3/uL (140-450); Red Blood Cells 6.35 10^6/uL (4.0-5.20); Red Cell Distribution Width 18.5 % (11.8-14.3); White Blood Cell 25.6 10^3/uL (4.4-10.8)
[2024-08-22 03:50] LABS: Basophils % (manual) 0 (0.0-2.0); Blast Cells 0; Eosinophils % (manual) 0 (0-7); Metamyelocytes % 0; Promyelocytes % 0; Reactive Lymphocytes 0
[2024-08-22 03:54] LABS: Chloride 103 mmol/L (98-107); Sodium 136 mmol/L (136-145)
[2024-08-22 03:55] LABS: Anion Gap 4 (5-15); Carbon Dioxide 29 mmol/L (20-31)
[2024-08-22 04:00] LABS: BUN/Creatinine Ratio 26.6 (10.0-20.0); Glucose 373 mg/dL (74-106)
[2024-08-22 04:04] LABS: Blood Urea Nitrogen 53 mg/dL (9-23)
[2024-08-22 04:18] LABS: Anisocytosis Slight; Band Neutrophils % (manual) 2; Lymphocytes % (manual) 2 (10.0-50.0); Monocytes % (manual) 1 (0-12); Myelocytes % 1; Platelet Estimate Adequate
[2024-08-22 04:19] LABS: Giant Platelets Few; Large Platelets MODERATE; Stomatocytes Few
[2024-08-22] MEDS: CEFEPIME 1GM/ 50ML 50 ML IV SCH (12:00)
[2024-08-22] MEDS: SODIUM CHLORIDE 0.9% 1,000 ML IV SCH (14:29)
[2024-08-23] VITALS (15 sets, daily range): BP systolic 102–116; BP diastolic 57–75; PULSE 68–91; RESP 16–22; TEMP 97.6–98.4; O2SAT 93–100
[2024-08-23 06:13] LABS: Anion Gap 9 (5-15); Carbon Dioxide 29 mmol/L (20-31); Chloride 103 mmol/L (98-107); Hematocrit 49.6 % (36.0-46.0); Hemoglobin 16.4 g/dL (12.2-16.2); Mean Corpuscular Hemoglobin 25.9 pg (28.0-32.0); Mean Corpuscular Hgb Conc. 33.1 g/dL (32.0-36.0); Mean Corpuscular Volume 78.1 fL (80.0-100.0); Platelet Count (auto) 317 10^3/uL (140-450); Potassium 3.9 mmol/L (3.5-5.1); Red Blood Cells 6.35 10^6/uL (4.0-5.20); Red Cell Distribution Width 18.3 % (11.8-14.3); Sodium 141 mmol/L (136-145)
[2024-08-23 06:14] LABS: Basophils % (manual) 0 (0.0-2.0); Blast Cells 0; Calcium 8.3 mg/dL (8.7-10.4); Metamyelocytes % 0; Myelocytes % 0; Promyelocytes % 0; Reactive Lymphocytes 0
[2024-08-23 06:18] LABS: Glucose 180 mg/dL (74-106)
[2024-08-23 06:19] LABS: BUN/Creatinine Ratio 30.7 (10.0-20.0); Blood Urea Nitrogen 58 mg/dL (9-23)
[2024-08-23 06:44] LABS: Band Neutrophils % (manual) 1; Eosinophils % (manual) 1 (0-7); Lymphocytes % (manual) 4 (10.0-50.0); Monocytes % (manual) 7 (0-12); Platelet Estimate Adequate
[2024-08-23 06:45] LABS: Anisocytosis Slight
[2024-08-24] VITALS (15 sets, daily range): BP systolic 98–118; BP diastolic 55–72; PULSE 71–91; RESP 15–22; TEMP 36.4; O2SAT 92–99
[2024-08-24] MEDS ORDERED: LEVO500T91 PO (07:15)
[2024-08-24 07:45] LABS: Basophils # (auto) 0.1 10 ^3/uL (0-0.2); Eosinophils # (auto) 0.6 10 ^3/uL (0-0.8); Lymphocytes # (auto) 1.3 10 ^3/uL (0.4-5.4)
[2024-08-24 07:48] LABS: Basophils % (auto) 0.3 % (0.0-2.0); Hematocrit 50.3 % (36.0-46.0); Hemoglobin 16.8 g/dL (12.2-16.2); Lymphocytes % (auto) 6.5 % (10.0-50.0); Mean Corpuscular Hemoglobin 26.3 pg (28.0-32.0); Mean Corpuscular Hgb Conc. 33.4 g/dL (32.0-36.0); Mean Corpuscular Volume 78.7 fL (80.0-100.0); Monocytes # (auto) 0.7 10 ^3/uL (0-1.3); Monocytes % (auto) 3.4 % (0.0-12.0); Neutrophils # (auto) 16.9 10 ^3/uL (1.6-8.6); Neutrophils % (auto) 86.8 % (37.0-80.0); Nucleated Red Blood Cells % 0.3 %; Platelet Count (auto) 277 10^3/uL (140-450); Red Blood Cells 6.39 10^6/uL (4.0-5.20); Red Cell Distribution Width 18.6 % (11.8-14.3); White Blood Cell 19.4 10^3/uL (4.4-10.8)
[2024-08-24 07:52] LABS: Chloride 103 mmol/L (98-107); Potassium 4.4 mmol/L (3.5-5.1); Sodium 139 mmol/L (136-145)
[2024-08-24 07:53] LABS: Anion Gap 6 (5-15); Carbon Dioxide 30 mmol/L (20-31)
[2024-08-24 07:54] LABS: Calcium 8.7 mg/dL (8.7-10.4)
[2024-08-24 07:58] LABS: Glucose 156 mg/dL (74-106)
[2024-08-24 07:59] LABS: BUN/Creatinine Ratio 30.3 (10.0-20.0); Blood Urea Nitrogen 50 mg/dL (9-23)
[2024-08-25] VITALS (7 sets, daily range): BP systolic 111–137; BP diastolic 70–72; PULSE 68–98; RESP 16–20; TEMP 97.2–98.6; O2SAT 92–100
[2024-08-25] MEDS: CEFEPIME 1GM/ 50ML 50 ML IV SCH
[2024-08-25 07:21] LABS: Mean Corpuscular Hemoglobin 25.8 pg (28.0-32.0); Monocytes # (auto) 0.5 10 ^3/uL (0-1.3)
[2024-08-25 07:24] LABS: Basophils # (auto) 0.1 10 ^3/uL (0-0.2); Basophils % (auto) 0.6 % (0.0-2.0); Eosinophils # (auto) 0.9 10 ^3/uL (0-0.8); Eosinophils % (auto) 4.8 % (0.0-7.0); Hemoglobin 16.4 g/dL (12.2-16.2); Lymphocytes # (auto) 1.3 10 ^3/uL (0.4-5.4); Lymphocytes % (auto) 6.8 % (10.0-50.0); Mean Corpuscular Hgb Conc. 32.1 g/dL (32.0-36.0); Mean Corpuscular Volume 80.2 fL (80.0-100.0); Monocytes % (auto) 2.8 % (0.0-12.0); Neutrophils # (auto) 16.6 10 ^3/uL (1.6-8.6); Nucleated Red Blood Cells % 0.6 %; Platelet Count (auto) 260 10^3/uL (140-450); Red Blood Cells 6.35 10^6/uL (4.0-5.20); Red Cell Distribution Width 19.2 % (11.8-14.3); White Blood Cell 19.5 10^3/uL (4.4-10.8)
[2024-08-25 10:14] LABS: Calcium 9.1 mg/dL (8.7-10.4); Chloride 104 mmol/L (98-107); Potassium 4.7 mmol/L (3.5-5.1); Sodium 141 mmol/L (136-145)
[2024-08-25 10:15] LABS: Anion Gap 5 (5-15); Carbon Dioxide 32 mmol/L (20-31)
[2024-08-25 10:20] LABS: BUN/Creatinine Ratio 35.1 (10.0-20.0); Blood Urea Nitrogen 54 mg/dL (9-23); Glucose 201 mg/dL (74-106)
== END 2024-08-25 11:06 | disposition home or self-care (01) | DRG 871 ==
LOC: ER 13:15 → EDBD 13:15 → TELE 17:43 → OBSVTOIN 17:43 → TELE-WESTW 08-22 09:40
PROVIDERS: ADMIT Student in an Organized Health Care Education/Training Program; ATTEND Student in an Organized Health Care Education/Training Program
PROC: 05HN33Z Insertion of Infusion Device into Left Internal Jugular Vein, Percutaneous Approach (ICD-10-PCS; principal; 2024-08-20)
PROC: B544ZZA Ultrasonography of Left Jugular Veins, Guidance (ICD-10-PCS; 2024-08-20)
PROC: 05JY3ZZ Inspection of Upper Vein, Percutaneous Approach (ICD-10-PCS; 2024-08-20)
PROC: 06HY33Z Insertion of Infusion Device into Lower Vein, Percutaneous Approach (ICD-10-PCS; 2024-08-21)
PROC: 5A1D70Z Performance of Urinary Filtration, Intermittent, Less than 6 Hours Per Day (ICD-10-PCS; 2024-08-21)
DX: A41.9 Sepsis, unspecified organism (principal); G93.41 Metabolic encephalopathy; J96.01 Acute respiratory failure with hypoxia; R65.21 Severe sepsis with septic shock; N17.0 Acute kidney failure with tubular necrosis; E87.20 Acidosis, unspecified; Z68.41 Body mass index [BMI] 40.0-44.9, adult; I50.32 Chronic diastolic (congestive) heart failure; I13.0 Hypertensive heart and chronic kidney disease with heart failure and stage 1 through stage 4 chronic kidney disease, or unspecified chronic kidney disease; N39.0 Urinary tract infection, site not specified; J98.11 Atelectasis; Z68.42 Body mass index [BMI] 45.0-49.9, adult; F10.20 Alcohol dependence, uncomplicated; E66.01 Morbid (severe) obesity due to excess calories; E87.5 Hyperkalemia; I25.10 Atherosclerotic heart disease of native coronary artery without angina pectoris; F17.210 Nicotine dependence, cigarettes, uncomplicated; E11.22 Type 2 diabetes mellitus with diabetic chronic kidney disease; J44.9 Chronic obstructive pulmonary disease, unspecified; Y90.9 Presence of alcohol in blood, level not specified; N18.32 Chronic kidney disease, stage 3b; E86.0 Dehydration; N28.1 Cyst of kidney, acquired; Z74.01 Bed confinement status; Z86.73 Personal history of transient ischemic attack (TIA), and cerebral infarction without residual deficits; Z83.3 Family history of diabetes mellitus; Z83.2 Family history of diseases of the blood and blood-forming organs and certain disorders involving the immune mechanism; Z81.1 Family history of alcohol abuse and dependence; Z82.49 Family history of ischemic heart disease and other diseases of the circulatory system; Z99.2 Dependence on renal dialysis; Z90.49 Acquired absence of other specified parts of digestive tract; Z99.81 Dependence on supplemental oxygen
CPT/HCPCS: 36415; 36600; 71045; 76775; 80048; 80053; 80074; 81001; 82570; 82805; 82962; 83036; 83605; 83880; 83930; 83935; 84300; 84484; 85007; 85025; 85027; 87040; 87081; 87086; 87426; 90935; 93005; 93306; 93970; 94640; 96365; 96375; G0378; J1815; J2543

== ENCOUNTER 2024-12-23 19:53 | Inpatient (IN) | payer OTHER ==
[~2024-12-23] VITALS: Ht 167.6 cm; Wt 114.0 kg
[~2024-12-23 19:53] MED LIST changes: -AML5T PO; +AMLO1TAB23 PO; -CEPH500T PO; +EMPA1TAB PO; -FAMO-12 PO; -GAB100C PO; +GABA-1308 PO; +GLIM4TAB42 PO; +HYDR25TA5 PO; -INSLANTI SC; +INSU1INJ19 SC; +LEVO500T91 PO; -LISI2.5T47 PO; +LISI20TA56 PO; -LOSA-534 PO; -METF-490 PO
--- NOTE | 2024-12-23 20:58 | DVH ---
EXAM: XY CHEST XRAY 1 VIEW CLINICAL HISTORY: SOB TECHNIQUE: Single AP view of the chest WID: COMPARISON: XY CHEST XRAY 1 VIEW on DOS: 08/20/24, FINDINGS: Lines and tubes: None Chest: Mild cardiomegaly. Mild prominence of the central pulmonary vasculature. Small bilateral pleural ef fusion. No pneumothorax. Elevation of the right hemidiaphragm. The osseous structures are grossly intact. IMPRESSION: Mild cardiomegaly, prominence of the central pulmonary vasculature, and small bilateral pleural effus ions.
--- NOTE | 2024-12-23 21:16 | DVH ---
CLINICAL HISTORY: Lower limb edema, predominantly right side TECHNIQUE: Color and duplex doppler imaging of the bilateral lower extremity veins was performed. Ves cory compression if possible was also performed. WID: COMPARISON: US BILAT LOWER DVT on DOS: 08/19/24 FINDINGS: Right Lower Extremity: Right common femoral vein: Normal compressibility and flow. Right femoral vein: Normal compressibility and flow. Right popliteal vein: Normal compressibility and flow. Proximal calf veins are normally compressible. Left Lower Extremity: Left common femoral vein: Normal compressibility and flow. Left femoral vein: Normal compressibility and flow. Left popliteal vein: Normal compressibility and flow. Proximal calf veins are normally compressible. IMPRESSION: NO SONOGRAPHIC EVIDENCE FOR DEEP VENOUS THROMBOSIS IN THE BILATERAL LOWER EXTREMITY VEINS.
--- NOTE | 2024-12-23 21:41 | ED.PDOC ---
HPI Comments Meghan Calixto is a 69-year-old female patient who presents to ED via EMS today with acute dyspnea in functional class IV. Patient is already on home oxygen approximately 1 liter/minute, and had to increase it to 3 liters/minute, and persist with dyspnea prompting her visit to ED. Patient reports being bed- bound, and also noticed lower right limb swelling. Denies fever, chills, palpitation, syncope, nausea, vomiting, diarrhea, constipation, sick contacts, recent travel and motor or sensory deficits. Past medical history: Hypertension, diabetes, questionable COPD/pulmonary hypertension with home oxygen requirement at 1 liter/minute, last echocardiogram completed on 07/2024 which shows LVEF 65%, dyskinetic interventricular septum, moderate dilation RV, RVSP 40 mmHg, anxiety, bed-bound. She presented recent admission due to hyperkalemia requiring one session of hemodialysis, has multiple UTIs. Surgical history: Denies Family history: Noncontributory Social history: Lives with [place] in [place]. Denies current tobacco, alcohol and other drug abuse. Did present polysubstance abuse in 2019 (UDS was positive for PCP, cocaine and opiates. Allergies: Denies Home medication: Does not recall (per EMS only was taking albuterol and lorazepam) Chief Complaint: Shortness of Breath Time Seen by MD: 19:59 Primary Care Provider: DAV Allergies: Coded Allergies: NO KNOWN ALLERGIES (Unverified , 02/02/20) Home Meds Active Scripts Levofloxacin Hemihydrate (LEVAQUIN 500 MG) 500 Mg Tab, 500 MG PO DAILY for 10 Days, #10 TAB Prov:JASIEL HAN MD 08/24/24 Meclizine Hcl (Meclizine Hcl) 12.5 Mg Tab, 2 TAB PO TID PRN, #30 TAB 3 Refills Prov:ABI VALDEZ DO 05/24/23 Reported Medications Insulin Glargine (Basaglar Kwikpen) 100 Unit/Ml Inj, UNIT SC UD 08/20/24 Hctz (Hydrochlorothiazide) 25 Mg Tab, 50 MG PO DAILY 08/20/24 Amlodipine Besylate (Amlodipine Besylate) 10 Mg Tab, 1 TAB PO DAILY 08/20/24 Glimepiride (Glimepiride) 4 Mg Tab, 4 MG PO DAILY 08/20/24 Lisinopril (Lisinopril) 20 Mg Tab, 20 MG PO DAILY 08/20/24 Empagliflozin (Jardiance) 10 Mg Tab, 10 MG PO DAILY 08/20/24 Gabapentin (Gabapentin) 100 Mg Cap, 100 MG PO BID 08/20/24 Mode of Arrival: EMS Past Medical History PAST MEDICAL HISTORY: Arthritis, CVA, DM, Gallstones, HTN, UTI'S Surgical History: Cholecystectomy COMMERCIAL LINES ACCOUNT ASSISTANT History: No Pertinent COMMERCIAL LINES ACCOUNT ASSISTANT History Family History Family History: Family hx of heart mone Social History Smoker: Cigarettes, Less Than 1 Pack/Day Alcohol: Occasionally Drugs: Denies Drug Use Lives In: Home Physical Exam General Appearance: No Apparent Distress, Normal HEENT: Normal ENT Inspection, Pharynx Normal, TMs Normal Neck: Full Range of Motion, Non-Tender, Normal, Normal Inspection Respiratory: Chest Non-Tender, Decreased Breath Sounds, No Accessory Muscle Use, No Respiratory Distress, Rales Cardiovascular: No Edema, No JVD, No Murmur, No Gallop, Normal Peripheral Pulses, Regular Rate/Rhythm Breast Exam: Deferred Gastrointestinal: No Organomegaly, Non Tender, No Pulsatile Mass, Normal Bowel Sounds, Soft Genitalia: Deferred Pelvic: Deferred Rectal: Deferred Extremities: Leg edema (Right lower limb), No calf tenderness, Normal capillary refill, Normal range of motion, Non-tender, Pedal edema (Right lower limb), Swelling Neurologic: Alert, seed analysis laboratory assistant II-XII nml as Tested, No Motor Deficits, Normal Affect, Normal Mood, No Sensory Deficits Cerebellar Function: Normal Reflexes: Normal Skin: Dry, Normal Color, Warm Lymphatic: No Adenopathy EKG EKG : Comments Sinus tachycardia with old anterior infarct Was a procedure done? Was a procedure done?: No CP Differential Dx Differential Diagnosis: Electrolyte Disorder, Heart Failure, TX, Pulmonary Embolus, Renal Failure X-Ray, Labs, Meds, VS Vital Signs Date Time Temp Pulse Resp B/P (MAP) Pulse Ox O2 Delivery O2 Flow Rate FiO2 12/23/24 20:08 16 93 Nasal Cannula* 3 32 12/23/24 20:05 77 12/23/24 20:03 98.0 78 16 115/82 (93) 93 Lab Test 12/23/24 21:34 Range/Units White Blood Count 17.6 H 4.4-10.8 10^3/uL Red Blood Count 7.66 H 4.0-5.20 10^6/uL Hemoglobin 17.5 H 12.2-16.2 g/dL Hematocrit 56.1 H 36.0-46.0 % Mean Corpuscular Volume 73.3 L 80.0-100.0 fL Mean Corpuscular Hemoglobin 22.9 L 28.0-32.0 pg Mean Corpuscular Hemoglobin Concent 31.2 L 32.0-36.0 g/dL Red Cell Distribution Width 22.1 H 11.8-14.3 % Platelet Count 303 140-450 10^3/uL Mean Platelet Volume 8.2 6.9-10.8 fL Neutrophils (%) (Auto) 83.9 H 37.0-80.0 % Lymphocytes (%) (Auto) 7.3 L 10.0-50.0 % Monocytes (%) (Auto) 3.1 0.0-12.0 % Eosinophils (%) (Auto) 4.7 0.0-7.0 % Basophils (%) (Auto) 1.0 0.0-2.0 % Neutrophils # (Auto) 14.7 H 1.6-8.6 10 ^3/uL Lymphocytes # (Auto) 1.3 0.4-5.4 10 ^3/uL Monocytes # (Auto) 0.5 0-1.3 10 ^3/uL Eosinophils # (Auto) 0.8 0-0.8 10 ^3/uL Basophils # (Auto) 0.2 0-0.2 10 ^3/uL Nucleated Red Blood Cells 0.8 % Prothrombin Time Pending Prothrombin Time INR Pending Activated Partial Thromboplast Time Pending Sodium Level 140 136-145 mmol/L Potassium Level 5.5 H 3.5-5.1 mmol/L Chloride Level 109 H 98-107 mmol/L Carbon Dioxide Level 27 20-31 mmol/L Anion Gap 4 L 5-15 Blood Urea Nitrogen 37 H 9-23 mg/dL Creatinine 1.22 H 0.550-1.02 mg/dL Glomerular Filtration Rate Calc 48 >90 mL/min BUN/Creatinine Ratio 30.3 H 10.0-20.0 Serum Glucose 150 H 74-106 mg/dL Lactic Acid Level 0.9 0.4-2.0 mmol/L Calcium Level 9.7 8.7-10.4 mg/dL Phosphorus Level 3.7 2.4-5.1 mg/dL Magnesium Level 2.5 1.6-2.6 mg/dL Total Bilirubin 0.6 0.2-1.0 mg/dL Aspartate Amino Transferase (AST) 13 13-40 U/L Alanine Aminotransferase (ALT) 10 7-40 U/L Alkaline Phosphatase 132 H 46-116 U/L Ammonia Pending Troponin I High Sensitivity Pending Total Protein 7.6 5.7-8.2 g/dL Albumin 4.2 3.2-4.8 g/dL Thyroid Stimulating Hormone (TSH) 2.51 0.55-4.78 uIU/mL X-Ray, Labs, Meds, VS Comment Pending laboratory, echocardiogram, V/Q scan and urine analysis. Time of 1ST Reevaluation: 22:08 Reevaluation 1ST: Unchanged Patient Education/Counseling: Diagnosis, Treatment, Prognosis Family Education/Counseling: Diagnosis, Treatment, Prognosis Departure 1 Departure Time of Disposition: 22:08 Impression: Primary Impression: Acute respiratory distress Additional Impression: Leukocytosis Disposition: ADMITTED INPATIENT Condition: Serious Additional Instructions: Patient presents acute respiratory failure, ruled out lower limb DVT with US, pending laboratory results. Due to previous CKD with requirement of hemodialysis, patient will benefit from VQ scan to rule out PE. Patient has history of moderate pulmonary hypertension. Chest xray shows congestion, have ordered echocardiogram to evaluate LVEF and RVSP. Due to leukocytosis, ordered cultures to rule out infection. Indicated hyperkalemia protocol. Patient will benefit from admission to optimized medical treatment. Critical Care Note Critical Care Time?: No Stability Stability form required: No Heart Score Heart Score: Heart Score Response (Comments) Value History N/A 0 EKG N/A 0 Age N/A 0 Risk Factors N/A 0 Troponin N/A 0 Total 0 PEARL SANCHES RESIDENT Dec 23, 2024 21:41
[2024-12-23] MEDS ORDERED: IPRATROPIUM BROM 0.5 MG/2.5ML INH SOL NEB PRN (21:45)
[2024-12-23] MEDS ORDERED: ALBUTEROL SULF 2.5 MG/0.5ML(0.5%) NEB SOLN NEB PRN (21:45)
[2024-12-23 22:00] LABS: INR 1.11 (0.9-1.15); Partial Thromboplastin Time 35.4 SEC (24.5-34.5); Prothrombin Time 11.6 sec (9.3-11.8)
[2024-12-23 22:05] LABS: Basophils # (auto) 0.2 10 ^3/uL (0-0.2); Lymphocytes # (auto) 1.3 10 ^3/uL (0.4-5.4)
[2024-12-23 22:06] LABS: Eosinophils # (auto) 0.8 10 ^3/uL (0-0.8); Eosinophils % (auto) 4.7 % (0.0-7.0); Hemoglobin 17.5 g/dL (12.2-16.2); Lymphocytes % (auto) 7.3 % (10.0-50.0); Mean Corpuscular Hemoglobin 22.9 pg (28.0-32.0); Mean Corpuscular Hgb Conc. 31.2 g/dL (32.0-36.0); Mean Corpuscular Volume 73.3 fL (80.0-100.0); Monocytes # (auto) 0.5 10 ^3/uL (0-1.3); Monocytes % (auto) 3.1 % (0.0-12.0); Neutrophils # (auto) 14.7 10 ^3/uL (1.6-8.6); Neutrophils % (auto) 83.9 % (37.0-80.0); Nucleated Red Blood Cells % 0.8 %; Platelet Count (auto) 303 10^3/uL (140-450); Red Blood Cells 7.66 10^6/uL (4.0-5.20); White Blood Cell 17.6 10^3/uL (4.4-10.8)
[2024-12-23 22:07] LABS: Alanine Aminotransferase 10 U/L (7-40); Albumin 4.2 g/dL (3.2-4.8); Anion Gap 4 (5-15); Aspartate Aminotransferase 13 U/L (13-40); BUN/Creatinine Ratio 30.3 (10.0-20.0); Calcium 9.7 mg/dL (8.7-10.4); Carbon Dioxide 27 mmol/L (20-31); Magnesium 2.5 mg/dL (1.6-2.6); Sodium 140 mmol/L (136-145)
[2024-12-23 22:08] LABS: Bilirubin, Total 0.6 mg/dL (0.2-1.0); Phosphorus 3.7 mg/dL (2.4-5.1); Total Protein 7.6 g/dL (5.7-8.2)
[2024-12-23 22:12] LABS: Hematocrit 56.1 % (36.0-46.0); Red Cell Distribution Width 22.1 % (11.8-14.3)
[2024-12-23 22:14] LABS: Alkaline Phosphatase 132 U/L (46-116); Blood Urea Nitrogen 37 mg/dL (9-23); Chloride 109 mmol/L (98-107); Glucose 150 mg/dL (74-106); Potassium 5.5 mmol/L (3.5-5.1)
[2024-12-23] MEDS ORDERED: DEXTROSE (50%) 50ML SYRG IV PRN (22:15)
[2024-12-23] MEDS: cefTRIAXone 1GM/50ML D5W 50 ML IV ONE (22:30)
--- NOTE | 2024-12-23 22:40 | DVH ---
CLINICAL HISTORY: altered mental status TECHNIQUE: Helical imaging carried out from skull base to vertex without intravenous contrast. This e xam was performed according to our departmental dose optimization program. Up-to-date CT equipment an d radiation dose reduction techniques are utilized as appropriate. CTDIVol: 60.20 mGy DLP: 963.74 mGy-cm WID: COMPARISON: HEAD WITHOUT CONTRAST on DOS: 01/07/23, FINDINGS: Generalized cerebral volume loss with concordant prominence of the subarachnoid spaces and ventricles . Mild patchy low attenuation in the cerebral white matter consistent with nonspecific white matter d isease. Small chronic right cerebellar infarct. Small chronic left thalamic infarcts. Tiny chronic bi lateral basal ganglia infarcts small chronic left occipital lobe infarct. There is no midline shift or mass effect. The lee white matter interfaces are maintained. The basal cisterns are patent. There is no evidence of acute intracranial hemorrhage or extra-axial fluid chinedu ection. The mastoid air cells and visualized paranasal sinuses are well-aerated. Prior right ocular l ens replacement. IMPRESSION: 1. No acute intracranial abnormality. 2. Generalized cerebral volume loss and mild chronic microvascular ischemic change 3. Small chronic left thalamic infarcts, small chronic right cerebellar and left occipital lobe infar cts, and tiny chronic bilateral basal ganglia infarcts.
[2024-12-23] MEDS: ALBUTEROL SULF 2.5 MG/0.5ML(0.5%) NEB SOLN ONE (22:45)
[2024-12-23] MEDS: ALBUTEROL SULF 2.5 MG/0.5ML(0.5%) NEB SOLN NEB ONE (23:00)
[2024-12-23] MEDS: FUROSEMIDE 20 MG/2 ML VIAL IV ONE (23:00)
[2024-12-23 23:47] LABS: COVID19 ANTIGEN SOFIA FIA NEGATIVE (NEGATIVE)
[2024-12-23 23:49] LABS: Rapid Influenza A Negative (Negative); Rapid Influenza B Positive (Negative)
[2024-12-24] VITALS (13 sets, daily range): BP systolic 99–118; BP diastolic 45–77; PULSE 60–81; RESP 18–23; TEMP 98.2; O2SAT 96–100
[2024-12-24] MEDS: SOD CHL 0.45% 1,000 ML IV ONE
[2024-12-24 00:23] LABS: Base Excess -3.3 mmol/L (-2.0-3.0)
[2024-12-24] MEDS ORDERED: DEXTROSE (50%) 50ML SYRG IV PRN (00:30)
[2024-12-24] MEDS ORDERED: NITROGLYCERIN 0.4 MG SL TAB SL PRN (00:30)
[2024-12-24] MEDS ORDERED: MORPHINE SULFATE INJ 2 MG/ml SYRG IV PRN (00:30)
[2024-12-24] MEDS ORDERED: ONDANSETRON HCL 4 MG/2 ML VIAL IV PRN (00:30)
[2024-12-24 00:52] LABS: Urine Bacteria None Seen /hpf (None Seen)
--- NOTE | 2024-12-24 00:57 | DVHHP2 ---
Admitting Diagnosis: Acute on chronic respiratory failure History of Present Illness HPI 69 year old morbidly obese, bed bound female with HTN, DM, COPD, on home oxygen, CHF, recurrent UTIs was brought to ED with persistent dyspnea despite using her home oxygen at 3L. In the ER she was found positive for Influenza B. ABG shows acidosis with hypercapnia. UA is pending Home Meds Active Scripts Levofloxacin Hemihydrate (LEVAQUIN 500 MG) 500 Mg Tab, 500 MG PO DAILY for 10 Days, #10 TAB Prov:JASIEL HAN MD 08/24/24 Meclizine Hcl (Meclizine Hcl) 12.5 Mg Tab, 2 TAB PO TID PRN, #30 TAB 3 Refills Prov:ABI VALDEZ DO 05/24/23 Reported Medications Insulin Glargine (Basaglar Kwikpen) 100 Unit/Ml Inj, UNIT SC UD 08/20/24 Hctz (Hydrochlorothiazide) 25 Mg Tab, 50 MG PO DAILY 08/20/24 Amlodipine Besylate (Amlodipine Besylate) 10 Mg Tab, 1 TAB PO DAILY 08/20/24 Glimepiride (Glimepiride) 4 Mg Tab, 4 MG PO DAILY 08/20/24 Lisinopril (Lisinopril) 20 Mg Tab, 20 MG PO DAILY 08/20/24 Empagliflozin (Jardiance) 10 Mg Tab, 10 MG PO DAILY 08/20/24 Gabapentin (Gabapentin) 100 Mg Cap, 100 MG PO BID 08/20/24 Past Medical History Cardiac: CHF, HTN, Hyperlipidemia Pulmonary: COPD Endocrine: NIDDM Patient Family History: Alcoholism Cardiovascular disease G8 MOTHER Diabetes mellitus GRANDMOTHER FH: aneurysm G8 BROTHER FH: sickle cell anemia Hypertension Review of Systems Pulmonary/Respiratory: Dyspnea, Orthopnea H&P Exam Vital Signs Vital Signs Date Time Temp Pulse Resp B/P (MAP) Pulse Ox O2 Delivery O2 Flow Rate FiO2 12/23/24 23:25 98.2 88 27 115/68 (84) 98 98.2 12/23/24 23:16 Nasal Cannula* 3 32 General Appeara: Obese Head Exam: Normal inspection Neck Exam: Normal inspection Eye Exam: bilateral eye PERRL, bilateral eye EOMI Pulmonary/Respiratory: Crackles, Rhonci Cardiovascular/Chest: Regular rate Abdominal Exam: No tenderness Ankle Exam: bilateral ankle Swelling Foot: bilateral foot swelling Neuro/Mental St: Alert, Oriented Labs/Xrays Labs Test 12/23/24 23:48 12/23/24 23:00 12/23/24 21:34 Range/Units Blood Gas Specimen Type Arterial Blood Gas Sample Site Left radial Blood Gas Patient Temperature 37.0 Arterial Blood Date Drawn [id number] Arterial Blood pH 7.230 *L 7.350-7.450 Arterial Blood Partial Pressure CO2 63.4 *H 32.0-45.0 mmHg Arterial Blood Partial Pressure O2 89.2 83.0-108.0 mmHg Arterial Blood HCO3 26.0 21.0-28.0 mmol/L Arterial Blood Oxygen Saturation 96.1 94.0-98.0 % Arterial Blood Base Excess -3.3 L -2.0-3.0 mmol/L Arterial Blood Oxyhemoglobin 93.1 L 94.0-98.0 % Arterial Blood Carboxyhemoglobin 2.3 H 0.5-1.5 % Arterial Blood Methemoglobin 0.8 0.0-1.5 % Rodney Test Yes Blood Gas Total Hemoglobin 17.60 H 12.0-16.0 g/dL Blood Gas Liter Flow 3.00 Blood Gas Modality Nasal cannula FiO2 % 32.0 Specimen Drawn By Lucille blanco rrt Blood Gas Critical Value Read Back Yes Blood Gas Notified Whom eusebia Whitman md Blood Gas Notified Time [id number] Blood Gas Notified By Lucille blanco heel finisher Influenza Type A Antigen Negative Negative Influenza Type B Antigen Positive Negative SARS-CoV-2 Antigen (Rapid) Negative NEGATIVE White Blood Count 17.6 H 4.4-10.8 10^3/uL Red Blood Count 7.66 H 4.0-5.20 10^6/uL Hemoglobin 17.5 H 12.2-16.2 g/dL Hematocrit 56.1 H 36.0-46.0 % Mean Corpuscular Volume 73.3 L 80.0-100.0 fL Mean Corpuscular Hemoglobin 22.9 L 28.0-32.0 pg Mean Corpuscular Hemoglobin Concent 31.2 L 32.0-36.0 g/dL Red Cell Distribution Width 22.1 H 11.8-14.3 % Platelet Count 303 140-450 10^3/uL Mean Platelet Volume 8.2 6.9-10.8 fL Neutrophils (%) (Auto) 83.9 H 37.0-80.0 % Lymphocytes (%) (Auto) 7.3 L 10.0-50.0 % Monocytes (%) (Auto) 3.1 0.0-12.0 % Eosinophils (%) (Auto) 4.7 0.0-7.0 % Basophils (%) (Auto) 1.0 0.0-2.0 % Neutrophils # (Auto) 14.7 H 1.6-8.6 10 ^3/uL Lymphocytes # (Auto) 1.3 0.4-5.4 10 ^3/uL Monocytes # (Auto) 0.5 0-1.3 10 ^3/uL Eosinophils # (Auto) 0.8 0-0.8 10 ^3/uL Basophils # (Auto) 0.2 0-0.2 10 ^3/uL Nucleated Red Blood Cells 0.8 % Prothrombin Time 11.6 9.3-11.8 sec Prothrombin Time INR 1.11 0.9-1.15 Activated Partial Thromboplast Time 35.4 H 24.5-34.5 SEC Sodium Level 140 136-145 mmol/L Potassium Level 5.5 H 3.5-5.1 mmol/L Chloride Level 109 H 98-107 mmol/L Carbon Dioxide Level 27 20-31 mmol/L Anion Gap 4 L 5-15 Blood Urea Nitrogen 37 H 9-23 mg/dL Creatinine 1.22 H 0.550-1.02 mg/dL Glomerular Filtration Rate Calc 48 >90 mL/min BUN/Creatinine Ratio 30.3 H 10.0-20.0 Serum Glucose 150 H 74-106 mg/dL Lactic Acid Level 0.9 0.4-2.0 mmol/L Calcium Level 9.7 8.7-10.4 mg/dL Phosphorus Level 3.7 2.4-5.1 mg/dL Magnesium Level 2.5 1.6-2.6 mg/dL Total Bilirubin 0.6 0.2-1.0 mg/dL Aspartate Amino Transferase (AST) 13 13-40 U/L Alanine Aminotransferase (ALT) 10 7-40 U/L Alkaline Phosphatase 132 H 46-116 U/L Ammonia 26 11-32 umol/L Troponin I High Sensitivity 3 L </=34 ng/L Total Protein 7.6 5.7-8.2 g/dL Albumin 4.2 3.2-4.8 g/dL Thyroid Stimulating Hormone (TSH) 2.51 0.55-4.78 uIU/mL Assessment/Plan Problem List: (1) Acute and chronic respiratory failure (2) Influenza B (3) DM (diabetes mellitus) (4) Morbid obesity (5) CKD (chronic kidney disease), stage III (6) HTN (hypertension) Plan BiPAP, RT, Solu Medrol, Abx, Pulmonary consult Plan discussed with: Patient KEENAN WHITMAN MD Dec 24, 2024 00:57
[2024-12-24 01:07] LABS: Urine Blood 1+ /uL (Negative); Urine Budding Yeast OCCASIONAL /hpf (None Seen); Urine Clarity Clear (Clear); Urine Color Light-Yellow (Yellow); Urine Protein, UAD 1+ (Negative); Urine Specific Gravity 1.013 (1.001-1.035); Urine Squamous Epithelial Cell FEW /hpf (<5); Urine Urobilinogen Normal (Negative); Urine WBC 17 /HPF (0-5)
[2024-12-24] MEDS: FUROSEMIDE 40 MG/4 ML VIAL IV ONE ×2 (01:14→11:56)
[2024-12-24] MEDS: DEXTROSE (50%) 50ML SYRG IV ONE (01:15)
[2024-12-24] MEDS: InsuLIN REG 1unit/0.01ml Soln (100units/ml) IV ONE (01:15)
[2024-12-24] MEDS: SODIUM BICARB 8.4% 50Meq/50ml SYR INJ IV ONE (01:15)
[2024-12-24] MEDS: methylPREDNISolone SOD SUCC 125 MG/2 ML VL IV ONE (01:16)
[2024-12-24] MEDS: CALCIUM GLUC 1,000mg/50ml-NS 50 ML IV ONE (01:22)
[2024-12-24] MEDS: ENOXAPARIN SOD 100 MG/1 ML SYRINGE SC ONE (01:45)
[2024-12-24] MEDS: cefTRIAXone 1GM/50ML D5W 50 ML IV ONE (01:46)
[2024-12-24 01:53] LABS: Amphetamine Screen, Urine Neg (NEGATIVE); Barbiturate Scree,Urine Neg (NEGATIVE); Benzodiazephine Screen, Urine Neg (NEGATIVE); Cannabinoid Screen, Urine Neg (NEGATIVE); Cocaine Screen, Urine Neg (NEGATIVE); Opiate Scree,Urine Neg (NEGATIVE); Phencyclidine Screen, Urine Neg (NEGATIVE)
[2024-12-24] MEDS: AZITHROMYCIN 500MG/ 250ML 250 ML IV ONE (02:43)
[2024-12-24] MEDS: FUROSEMIDE 40 MG/4 ML VIAL IV SCH (05:59)
[2024-12-24 06:06] LABS: Basophils # (auto) 0.1 10 ^3/uL (0-0.2); Basophils % (auto) 0.7 % (0.0-2.0); Eosinophils # (auto) 0.3 10 ^3/uL (0-0.8); Eosinophils % (auto) 1.7 % (0.0-7.0); Hematocrit 53.8 % (36.0-46.0); Hemoglobin 16.5 g/dL (12.2-16.2); Mean Corpuscular Hemoglobin 22.7 pg (28.0-32.0); Mean Corpuscular Hgb Conc. 30.7 g/dL (32.0-36.0); Mean Corpuscular Volume 73.9 fL (80.0-100.0); Monocytes # (auto) 0.3 10 ^3/uL (0-1.3); Monocytes % (auto) 1.8 % (0.0-12.0); Neutrophils # (auto) 17.9 10 ^3/uL (1.6-8.6); Neutrophils % (auto) 90.8 % (37.0-80.0); Platelet Count (auto) 249 10^3/uL (140-450); Red Blood Cells 7.27 10^6/uL (4.0-5.20); White Blood Cell 19.7 10^3/uL (4.4-10.8)
[2024-12-24 06:07] LABS: Nucleated Red Blood Cells % 3.3 %; Red Cell Distribution Width 21.3 % (11.8-14.3)
[2024-12-24] MEDS: SODIUM ZIRCONIUM CYCL 10 GM PAK PO ONE (06:18)
[2024-12-24 06:23] LABS: Alanine Aminotransferase 12 U/L (7-40); Albumin 3.6 g/dL (3.2-4.8); Alkaline Phosphatase 110 U/L (46-116); Anion Gap 8 (5-15); Aspartate Aminotransferase 15 U/L (13-40); BUN/Creatinine Ratio 29.5 (10.0-20.0); Calcium 9.7 mg/dL (8.7-10.4); Carbon Dioxide 23 mmol/L (20-31); Chloride 110 mmol/L (98-107); Glucose 182 mg/dL (74-106); Potassium 5.5 mmol/L (3.5-5.1); Sodium 141 mmol/L (136-145)
[2024-12-24 06:24] LABS: Bilirubin, Total 0.4 mg/dL (0.2-1.0); Blood Urea Nitrogen 33 mg/dL (9-23); Total Protein 6.9 g/dL (5.7-8.2)
[2024-12-24] MEDS: ACCU-CHEK COMFORT CURVE STRIP VI SCH (06:30)
[2024-12-24] MEDS: InsuLIN REG 1unit/0.01ml Soln (100units/ml) SC SCH (06:35)
--- NOTE | 2024-12-24 06:38 | ECG ---
[facility] Test Date: 2024-12-23 Test Time: 20:05:09 Pat Name: SINTIA CERDA Department: ED Room: [address] [place] [address] Gender: F Dobby Loom Fixer: VANIA : 1955 Requested By: PEARL SANCHES Order Number: [id number] Reading MD: Jim Piedra Measurements Intervals [place] Rate: 77 P: 0 AR: 177 QRS: -43 QRSD: 72 T: 69 QT: 376 QTc: 426 Interpretive Statements Sinus rhythm Left atrial enlargement Left anterior fascicular block Left ventricular hypertrophy Electronically Signed On 12-24-2024 8:56:35 PST by Jim Piedra Please click the below link to view image of tracing.
[2024-12-24 06:42] LABS: Anisocytosis Slight; Hypochromia Moderate; Platelet Estimate Adequate
[2024-12-24 06:43] LABS: Giant Platelets Few; Large Platelets FEW; Stomatocytes Few
[2024-12-24] MEDS: IPRATROPIUM BROM 0.5 MG/2.5ML INH SOL NEB SCH (06:59)
[2024-12-24] MEDS: ALBUTEROL SULF 2.5 MG/0.5ML(0.5%) NEB SOLN NEB SCH (06:59)
[2024-12-24] MEDS ORDERED: InsuLIN REG 1unit/0.01ml Soln (100units/ml) SC SCH (07:00)
[2024-12-24 07:22] LABS: Base Excess -5.5 mmol/L (-2.0-3.0)
--- NOTE | 2024-12-24 09:19 | DVHINCON2 ---
Date of service: Dec 24, [address] aide lopez Reason for Consultation pulmonary dictated [id number] case discussed with dr lopez Family History: Alcoholism Cardiovascular disease G8 MOTHER Diabetes mellitus GRANDMOTHER FH: aneurysm G8 BROTHER FH: sickle cell anemia Hypertension Allergies: Coded Allergies: NO KNOWN ALLERGIES (Unverified , 02/02/20) Home Meds Active Scripts Levofloxacin Hemihydrate (LEVAQUIN 500 MG) 500 Mg Tab, 500 MG PO DAILY for 10 Days, #10 TAB Prov:JASIEL HAN MD 08/24/24 Meclizine Hcl (Meclizine Hcl) 12.5 Mg Tab, 2 TAB PO TID PRN, #30 TAB 3 Refills Prov:ABI VALDEZ DO 05/24/23 Reported Medications Insulin Glargine (Basaglar Kwikpen) 100 Unit/Ml Inj, UNIT SC UD 08/20/24 Hctz (Hydrochlorothiazide) 25 Mg Tab, 50 MG PO DAILY 08/20/24 Amlodipine Besylate (Amlodipine Besylate) 10 Mg Tab, 1 TAB PO DAILY 08/20/24 Glimepiride (Glimepiride) 4 Mg Tab, 4 MG PO DAILY 08/20/24 Lisinopril (Lisinopril) 20 Mg Tab, 20 MG PO DAILY 08/20/24 Empagliflozin (Jardiance) 10 Mg Tab, 10 MG PO DAILY 08/20/24 Gabapentin (Gabapentin) 100 Mg Cap, 100 MG PO BID 08/20/24 Current Medications Current Medications Medications (Trade) Dose Ordered Sig/Tuan Route PRN Reason Start Time Stop Time Status Last Admin Furosemide (Lasix Injection) 40 mg BIDD IV 12/24/24 06:00 12/24/24 05:59 Ipratropium [place] (Atrovent Medneb) 0.5 mg Q4HPRN PRN NEB SHORTNESS OF BREATH 12/23/24 21:45 Albuterol (Ventolin Medneb) 2.5 mg Q4HPRN PRN NEB SHORTNESS OF BREATH 12/23/24 21:45 Enoxaparin Sodium (Lovenox) 110 mg DAILY SC 12/24/24 10:00 UNV Diagnostic Test (Pha) (Accu-Chek Comfort Curve T) 1 strip ACHS 12/24/24 07:00 12/24/24 06:30 Insulin Human Regular (InsuLIN R) ACHS SC 12/24/24 07:00 12/24/24 06:35 Dextrose 50 ml UD PRN IV Blood Sugar LESS THAN 60 12/23/24 22:15 Ceftriaxone Sodium 50 ml @ 100 mls/hr DAILY@2200 IV 12/24/24 22:00 Azithromycin 250 ml @ 125 mls/hr DAILY@1000 IV 12/24/24 10:00 Nitroglycerin (Ntrostat Sublingual) 0.4 mg Q5MINP PRN SL FOR CHEST PAIN 12/24/24 00:30 Morphine Sulfate 2 mg Q30M PRN IV FOR CHEST PAIN 12/24/24 00:30 Insulin Human Regular (InsuLIN R) AC SC 12/24/24 07:00 12/24/24 00:35 DC Dextrose 50 ml UD PRN IV Blood Sugar LESS THAN 60 12/24/24 00:30 12/24/24 00:35 DC Albuterol (Ventolin Medneb) 2.5 mg Q6HR NEB 12/24/24 06:00 12/24/24 06:59 Ipratropium [place] (Atrovent Medneb) 0.5 mg Q6HP NEB 12/24/24 06:00 12/24/24 06:59 Ondansetron HCl (Zofran) 4 mg Q6HPRN PRN IV NAUSEA / VOMITING 12/24/24 00:30 Oseltamivir Phosphate (Tamiflu 75MG Capsule) 75 mg Q12HR PO 12/24/24 10:00 12/29/24 09:59 Vital Signs Vital Signs Date Time Temp Pulse Resp B/P (MAP) Pulse Ox O2 Delivery O2 Flow Rate FiO2 12/24/24 08:05 72 117/77 98 Facial BiPAP Mask 30 12/24/24 08:00 97.1 20 97.1 12/24/24 00:55 3.0 Labs/Diagnostic Data Labs Test 12/24/24 07:11 12/24/24 06:29 12/24/24 05:48 12/23/24 23:59 Range/Units Blood Gas Specimen Type Arterial Blood Gas Sample Site Right radial Blood Gas Patient Temperature 37.0 Arterial Blood Date Drawn [id number] Arterial Blood pH 7.249 *L 7.350-7.450 Arterial Blood Partial Pressure CO2 52.5 H 32.0-45.0 mmHg Arterial Blood Partial Pressure O2 79.3 L 83.0-108.0 mmHg Arterial Blood HCO3 22.5 21.0-28.0 mmol/L Arterial Blood Oxygen Saturation 94.5 94.0-98.0 % Arterial Blood Base Excess -5.5 L -2.0-3.0 mmol/L Arterial Blood Oxyhemoglobin 92.2 L 94.0-98.0 % Arterial Blood Carboxyhemoglobin 1.8 H 0.5-1.5 % Arterial Blood Methemoglobin 0.6 0.0-1.5 % Rodney Test Yes Blood Gas Total Hemoglobin 17.00 H 12.0-16.0 g/dL Blood Gas Set Respiration Rate 16.0 Blood Gas Modality Mask - bipap FiO2 % 30.0 Blood Gas EPAP 8 Blood Gas IPAP 18 Blood Gas Critical Value Read Back Yes Blood Gas Notified Whom Dyllan burch Blood Gas Notified Time [id number] Blood Gas Notified By Keshawn roofing laborer POC Glucose 228 H 70-106 mg/dl White Blood Count 19.7 H 4.4-10.8 10^3/uL Red Blood Count 7.27 H 4.0-5.20 10^6/uL Hemoglobin 16.5 H 12.2-16.2 g/dL Hematocrit 53.8 H 36.0-46.0 % Mean Corpuscular Volume 73.9 L 80.0-100.0 fL Mean Corpuscular Hemoglobin 22.7 L 28.0-32.0 pg Mean Corpuscular Hemoglobin Concent 30.7 L 32.0-36.0 g/dL Red Cell Distribution Width 21.3 H 11.8-14.3 % Platelet Count 249 140-450 10^3/uL Mean Platelet Volume 8.4 6.9-10.8 fL Neutrophils (%) (Auto) 90.8 H 37.0-80.0 % Lymphocytes (%) (Auto) 5.0 L 10.0-50.0 % Monocytes (%) (Auto) 1.8 0.0-12.0 % Eosinophils (%) (Auto) 1.7 0.0-7.0 % Basophils (%) (Auto) 0.7 0.0-2.0 % Neutrophils # (Auto) 17.9 H 1.6-8.6 10 ^3/uL Lymphocytes # (Auto) 1.0 0.4-5.4 10 ^3/uL Monocytes # (Auto) 0.3 0-1.3 10 ^3/uL Eosinophils # (Auto) 0.3 0-0.8 10 ^3/uL Basophils # (Auto) 0.1 0-0.2 10 ^3/uL Nucleated Red Blood Cells 3.3 % Platelet Estimate Adequate Large Platelets Few Giant Platelets Few Hypochromasia (manual) Moderate Anisocytosis (manual) Slight Microcytosis Moderate Stomatocytes Few Sodium Level 141 136-145 mmol/L Potassium Level 5.5 H 3.5-5.1 mmol/L Chloride Level 110 H 98-107 mmol/L Carbon Dioxide Level 23 20-31 mmol/L Anion Gap 8 5-15 Blood Urea Nitrogen 33 H 9-23 mg/dL Creatinine 1.12 H 0.550-1.02 mg/dL Glomerular Filtration Rate Calc 53 >90 mL/min BUN/Creatinine Ratio 29.5 H 10.0-20.0 Serum Glucose 182 H 74-106 mg/dL Calcium Level 9.7 8.7-10.4 mg/dL Total Bilirubin 0.4 0.2-1.0 mg/dL Aspartate Amino Transferase (AST) 15 13-40 U/L Alanine Aminotransferase (ALT) 12 7-40 U/L Alkaline Phosphatase 110 46-116 U/L Total Protein 6.9 5.7-8.2 g/dL Albumin 3.6 3.2-4.8 g/dL Urine Color Light-yellow Yellow Urine Clarity Clear Clear Urine pH 5.0 5.0-9.0 Urine Specific [place] 1.013 1.001-1.035 Urine Protein 1+ H Negative Urine Ketones Negative Negative Urine Blood 1+ H Negative /uL Urine Nitrite Negative Negative Urine Bilirubin Negative Negative Urine Urobilinogen Normal Negative mg/dL Urine Leukocyte Esterase 2+ Negative /uL Urine RBC 2 0 - 4 /hpf Urine Microscopic WBC 17 H 0-5 /HPF Urine Squamous Epithelial Cells Few <5 /hpf Urine Bacteria None seen None Seen /hpf Urine Yeast (Budding) Occasional None Seen /hpf Urine Glucose Normal Normal mg/dL Urine Opiates Screen Neg NEGATIVE Urine Fentanyl Screen Neg NEGATIVE Urine Barbiturates Screen Neg NEGATIVE Urine Phencyclidine Screen Neg NEGATIVE Urine Amphetamines Screen Neg NEGATIVE Urine Benzodiazepines Screen Neg NEGATIVE Urine Cocaine Screen Neg NEGATIVE Urine Cannabinoids Screen Neg NEGATIVE Test 12/23/24 23:48 12/23/24 23:00 12/23/24 21:34 Range/Units Blood Gas Liter Flow 3.00 Specimen Drawn By Lucille blanco rrt Influenza Type A Antigen Negative Negative Influenza Type B Antigen Positive Negative SARS-CoV-2 Antigen (Rapid) Negative NEGATIVE Prothrombin Time 11.6 9.3-11.8 sec Prothrombin Time INR 1.11 0.9-1.15 Activated Partial Thromboplast Time 35.4 H 24.5-34.5 SEC Lactic Acid Level 0.9 0.4-2.0 mmol/L Phosphorus Level 3.7 2.4-5.1 mg/dL Magnesium Level 2.5 1.6-2.6 mg/dL Ammonia 26 11-32 umol/L Troponin I High Sensitivity 3 L </=34 ng/L Thyroid Stimulating Hormone (TSH) 2.51 0.55-4.78 uIU/mL YANG LEIGH MD Dec 24, 2024 09:19
[2024-12-24] MEDS: methylPREDNISolone SOD SUCC 40 MG/ML VL IV SCH (10:00)
[2024-12-24] MEDS: OSELTAMIVIR 75 MG CAP PO SCH (11:48)
[2024-12-24] MEDS: AZITHROMYCIN 500MG/ 250ML 250 ML IV SCH (11:52)
--- NOTE | 2024-12-24 12:48 | DVHSR ---
APPROVED REPORT EXAM: Two-dimensional and M-mode echocardiogram with Doppler and color Doppler. Blood Pressure: 109/67 mmHg INDICATION Probable PE RISK FACTORS Height: 68, Weight: 250 DIMENSIONS LVDd (3.8-5.7cm)LA (2D)4.1 (1.9-4.0cm)Aortic Root3.5 (2.0-3.7cm) LVDs (2.5-4.0cm)LA (MM) (1.9-4.0cm)Aortic Cusp Exc1.9 (1.5-2.0cm) EF (%) 68.0 (55-70%)Rt. Atrium3.3 (1.9-4.0cm)Asc. Aorta cm Mitral Valve MitralMitral Stenosis E wave0.73m/sMV Mean GR.3mmHg A wave1.04m/sMV Peak GR.32mmHg E/A ratio0.72D MVAcm2 DECEL [id number] 1/2 [id number] IVRTmsDop MVA4.16cm2 Aortic Valve Aortic ValveAortic Stenosis V11.10m/Abimael Mean GR.3mmHg V21.22m/Abimael Peak GR.6mmHg LVOT Diameter2.0 (1.8-2.4cm)Doppler AVA2.83cm2 Tricuspid Valve TR Velocity2.47m/s [id number] LEFT VENTRICLE The left ventricle is of normal size. Wall thickness is likely normal. Ejection fraction is normal and is estimated at 65%. There is no gross wall motion abnormalities. There is grade II diastolic d ysfunction. E to E prime ratio is in the indeterminate range. RIGHT VENTRICLE The right ventricle is of normal size and systolic function. ATRIA The left atrium is mildly dilated in size. Right atrium is of normal size. Intra-atrial septum is l ikely normal. MITRAL VALVE Normal structure and function. No significant regurgitation. PULMONIC VALVE Not visualized. TRICUSPID VALVE Normal structure and function. There is mild tricuspid regurgitation. PA systolic pressure is estim ated at 25-30 mm Hg. AORTIC VALVE Not well visualized. No evidence of significant stenosis or regurgitation. GREAT VESSELS The aortic root is of normal size. Proximal ascending aorta isn't visualized. PERICARDIAL EFFUSION No significant pericardial effusion. IVC isn't visualized. Other Information Technically limited study due to patient laying flat and was on high flow. Conclusion The study is technically limited. Normal left ventricular size and systolic function. Ejection fraction is estimated at 65%. Mildly dilated left atrial chamber size. Normal right ventricular size systolic function. No hemodynamically significant valvular disease. PA systolic pressure is estimated at 25 to 30 mm Hg.
--- NOTE | 2024-12-24 13:23 | DVHINCON2 ---
Date of service: Dec 24, 2024 History of Present Illness 69-year-old female past medical history of diabetes hypertension CHF presents to the hospital complaining of shortness of breath and weakness. She diagnosed with sepsis secondary to pneumonia she was found to be influenza positive. Nephrology consulted due to elevated creatinine Allergies: Coded Allergies: NO KNOWN ALLERGIES (Unverified , 02/02/20) Home Meds Active Scripts Levofloxacin Hemihydrate (LEVAQUIN 500 MG) 500 Mg Tab, 500 MG PO DAILY for 10 Days, #10 TAB Prov:JASIEL HAN MD 08/24/24 Meclizine Hcl (Meclizine Hcl) 12.5 Mg Tab, 2 TAB PO TID PRN, #30 TAB 3 Refills Prov:ABI VALDEZ DO 05/24/23 Reported Medications Insulin Glargine (Basaglar Kwikpen) 100 Unit/Ml Inj, UNIT SC UD 08/20/24 Hctz (Hydrochlorothiazide) 25 Mg Tab, 50 MG PO DAILY 08/20/24 Amlodipine Besylate (Amlodipine Besylate) 10 Mg Tab, 1 TAB PO DAILY 08/20/24 Glimepiride (Glimepiride) 4 Mg Tab, 4 MG PO DAILY 08/20/24 Lisinopril (Lisinopril) 20 Mg Tab, 20 MG PO DAILY 08/20/24 Empagliflozin (Jardiance) 10 Mg Tab, 10 MG PO DAILY 08/20/24 Gabapentin (Gabapentin) 100 Mg Cap, 100 MG PO BID 08/20/24 Current Medications Current Medications Medications (Trade) Dose Ordered Sig/Tuan Route PRN Reason Start Time Stop Time Status Last Admin Furosemide (Lasix Injection) 40 mg BIDD IV 12/24/24 06:00 12/24/24 05:59 Ipratropium [place] (Atrovent Medneb) 0.5 mg Q4HPRN PRN NEB SHORTNESS OF BREATH 12/23/24 21:45 Albuterol (Ventolin Medneb) 2.5 mg Q4HPRN PRN NEB SHORTNESS OF BREATH 12/23/24 21:45 Enoxaparin Sodium (Lovenox) 110 mg DAILY SC 12/24/24 10:00 UNV Diagnostic Test (Pha) (Accu-Chek Comfort Curve T) 1 strip ACHS 12/24/24 07:00 12/24/24 12:04 Insulin Human Regular (InsuLIN R) ACHS SC 12/24/24 07:00 12/24/24 12:03 Dextrose 50 ml UD PRN IV Blood Sugar LESS THAN 60 12/23/24 22:15 Ceftriaxone Sodium 50 ml @ 100 mls/hr DAILY@2200 IV 12/24/24 22:00 Azithromycin 250 ml @ 125 mls/hr DAILY@1000 IV 12/24/24 10:00 12/24/24 11:52 Nitroglycerin (Ntrostat Sublingual) 0.4 mg Q5MINP PRN SL FOR CHEST PAIN 12/24/24 00:30 Morphine Sulfate 2 mg Q30M PRN IV FOR CHEST PAIN 12/24/24 00:30 Insulin Human Regular (InsuLIN R) AC SC 12/24/24 07:00 12/24/24 00:35 DC Dextrose 50 ml UD PRN IV Blood Sugar LESS THAN 60 12/24/24 00:30 12/24/24 00:35 DC Albuterol (Ventolin Medneb) 2.5 mg Q6HR NEB 12/24/24 06:00 12/24/24 12:13 Ipratropium [place] (Atrovent Medneb) 0.5 mg Q6HP NEB 12/24/24 06:00 12/24/24 12:13 Ondansetron HCl (Zofran) 4 mg Q6HPRN PRN IV NAUSEA / VOMITING 12/24/24 00:30 Oseltamivir Phosphate (Tamiflu 75MG Capsule) 75 mg Q12HR PO 12/24/24 10:00 12/29/24 09:59 12/24/24 11:48 Methylprednisolone Sodium Succinate (Solu Medrol) 40 mg BID IV 12/24/24 10:00 12/24/24 10:00 Family History: Alcoholism Cardiovascular disease G8 MOTHER Diabetes mellitus GRANDMOTHER FH: aneurysm G8 BROTHER FH: sickle cell anemia Hypertension Review of Systems Shortness of breath H&P Exam Vital Signs/I&O Vital Sign Date Time Temp Pulse Resp B/P (MAP) Pulse Ox O2 Delivery O2 Flow Rate FiO2 12/24/24 12:13 70 107/68 99 Nasal BiPAP Mask 30 12/24/24 11:03 18 12/24/24 08:00 97.1 97.1 12/24/24 00:55 3.0 Intake and Output 12/23/24 12/24/24 19:00 07:00 Intake Total 350 ml Balance 350 ml Intake IV Total 350 ml Physical Exam Elderly female Mild distress shortness of breath Bilateral crackles Labs/Diagnostic Data Labs/Diagnostic Data Laboratory Tests Test 12/24/24 11:37 12/24/24 07:11 12/24/24 06:29 12/24/24 05:48 Range/Units POC Glucose 240 H 228 H 70-106 mg/dl Blood Gas Specimen Type Arterial Blood Gas Sample Site Right radial Blood Gas Patient Temperature 37.0 Arterial Blood Date Drawn [id number] Arterial Blood pH 7.249 *L 7.350-7.450 Arterial Blood Partial Pressure CO2 52.5 H 32.0-45.0 mmHg Arterial Blood Partial Pressure O2 79.3 L 83.0-108.0 mmHg Arterial Blood HCO3 22.5 21.0-28.0 mmol/L Arterial Blood Oxygen Saturation 94.5 94.0-98.0 % Arterial Blood Base Excess -5.5 L -2.0-3.0 mmol/L Arterial Blood Oxyhemoglobin 92.2 L 94.0-98.0 % Arterial Blood Carboxyhemoglobin 1.8 H 0.5-1.5 % Arterial Blood Methemoglobin 0.6 0.0-1.5 % Rodney Test Yes Blood Gas Total Hemoglobin 17.00 H 12.0-16.0 g/dL Blood Gas Set Respiration Rate 16.0 Blood Gas Modality Mask - bipap FiO2 % 30.0 Blood Gas EPAP 8 Blood Gas IPAP 18 Blood Gas Critical Value Read Back Yes Blood Gas Notified Whom Dyllna burch Blood Gas Notified Time [id number] Blood Gas Notified By Keshawn bianchi White Blood Count 19.7 H 4.4-10.8 10^3/uL Red Blood Count 7.27 H 4.0-5.20 10^6/uL Hemoglobin 16.5 H 12.2-16.2 g/dL Hematocrit 53.8 H 36.0-46.0 % Mean Corpuscular Volume 73.9 L 80.0-100.0 fL Mean Corpuscular Hemoglobin 22.7 L 28.0-32.0 pg Mean Corpuscular Hemoglobin Concent 30.7 L 32.0-36.0 g/dL Red Cell Distribution Width 21.3 H 11.8-14.3 % Platelet Count 249 140-450 10^3/uL Mean Platelet Volume 8.4 6.9-10.8 fL Neutrophils (%) (Auto) 90.8 H 37.0-80.0 % Lymphocytes (%) (Auto) 5.0 L 10.0-50.0 % Monocytes (%) (Auto) 1.8 0.0-12.0 % Eosinophils (%) (Auto) 1.7 0.0-7.0 % Basophils (%) (Auto) 0.7 0.0-2.0 % Neutrophils # (Auto) 17.9 H 1.6-8.6 10 ^3/uL Lymphocytes # (Auto) 1.0 0.4-5.4 10 ^3/uL Monocytes # (Auto) 0.3 0-1.3 10 ^3/uL Eosinophils # (Auto) 0.3 0-0.8 10 ^3/uL Basophils # (Auto) 0.1 0-0.2 10 ^3/uL Nucleated Red Blood Cells 3.3 % Platelet Estimate Adequate Large Platelets Few Giant Platelets Few Hypochromasia (manual) Moderate Anisocytosis (manual) Slight Microcytosis Moderate Stomatocytes Few Sodium Level 141 136-145 mmol/L Potassium Level 5.5 H 3.5-5.1 mmol/L Chloride Level 110 H 98-107 mmol/L Carbon Dioxide Level 23 20-31 mmol/L Anion Gap 8 5-15 Blood Urea Nitrogen 33 H 9-23 mg/dL Creatinine 1.12 H 0.550-1.02 mg/dL Glomerular Filtration Rate Calc 53 >90 mL/min BUN/Creatinine Ratio 29.5 H 10.0-20.0 Serum Glucose 182 H 74-106 mg/dL Calcium Level 9.7 8.7-10.4 mg/dL Total Bilirubin 0.4 0.2-1.0 mg/dL Aspartate Amino Transferase (AST) 15 13-40 U/L Alanine Aminotransferase (ALT) 12 7-40 U/L Alkaline Phosphatase 110 46-116 U/L Total Protein 6.9 5.7-8.2 g/dL Albumin 3.6 3.2-4.8 g/dL Test 12/24/24 02:30 12/24/24 00:53 12/23/24 23:59 12/23/24 23:48 Range/Units Potassium Level 5.0 3.5-5.1 mmol/L POC Glucose 160 H 70-106 mg/dl Urine Color Light-yellow Yellow Urine Clarity Clear Clear Urine pH 5.0 5.0-9.0 Urine Specific Wheeler 1.013 1.001-1.035 Urine Protein 1+ H Negative Urine Ketones Negative Negative Urine Blood 1+ H Negative /uL Urine Nitrite Negative Negative Urine Bilirubin Negative Negative Urine Urobilinogen Normal Negative mg/dL Urine Leukocyte Esterase 2+ Negative /uL Urine RBC 2 0 - 4 /hpf Urine Microscopic WBC 17 H 0-5 /HPF Urine Squamous Epithelial Cells Few <5 /hpf Urine Bacteria None seen None Seen /hpf Urine Yeast (Budding) Occasional None Seen /hpf Urine Glucose Normal Normal mg/dL Urine Opiates Screen Neg NEGATIVE Urine Fentanyl Screen Neg NEGATIVE Urine Barbiturates Screen Neg NEGATIVE Urine Phencyclidine Screen Neg NEGATIVE Urine Amphetamines Screen Neg NEGATIVE Urine Benzodiazepines Screen Neg NEGATIVE Urine Cocaine Screen Neg NEGATIVE Urine Cannabinoids Screen Neg NEGATIVE Blood Gas Specimen Type Arterial Blood Gas Sample Site Left radial Blood Gas Patient Temperature 37.0 Arterial Blood Date Drawn [id number] Arterial Blood pH 7.230 *L 7.350-7.450 Arterial Blood Partial Pressure CO2 63.4 *H 32.0-45.0 mmHg Arterial Blood Partial Pressure O2 89.2 83.0-108.0 mmHg Arterial Blood HCO3 26.0 21.0-28.0 mmol/L Arterial Blood Oxygen Saturation 96.1 94.0-98.0 % Arterial Blood Base Excess -3.3 L -2.0-3.0 mmol/L Arterial Blood Oxyhemoglobin 93.1 L 94.0-98.0 % Arterial Blood Carboxyhemoglobin 2.3 H 0.5-1.5 % Arterial Blood Methemoglobin 0.8 0.0-1.5 % Rodney Test Yes Blood Gas Total Hemoglobin 17.60 H 12.0-16.0 g/dL Blood Gas Liter Flow 3.00 Blood Gas Modality Nasal cannula FiO2 % 32.0 Specimen Drawn By Lucille blanco remote sensing technician Blood Gas Critical Value Read Back Yes Blood Gas Notified Whom eusebia Mijares md Blood Gas Notified Time [id number] Blood Gas Notified By Lucille blanco remote sensing technician Test 12/23/24 23:00 12/23/24 21:34 Range/Units Influenza Type A Antigen Negative Negative Influenza Type B Antigen Positive Negative SARS-CoV-2 Antigen (Rapid) Negative NEGATIVE White Blood Count 17.6 H 4.4-10.8 10^3/uL Red Blood Count 7.66 H 4.0-5.20 10^6/uL Hemoglobin 17.5 H 12.2-16.2 g/dL Hematocrit 56.1 H 36.0-46.0 % Mean Corpuscular Volume 73.3 L 80.0-100.0 fL Mean Corpuscular Hemoglobin 22.9 L 28.0-32.0 pg Mean Corpuscular Hemoglobin Concent 31.2 L 32.0-36.0 g/dL Red Cell Distribution Width 22.1 H 11.8-14.3 % Platelet Count 303 140-450 10^3/uL Mean Platelet Volume 8.2 6.9-10.8 fL Neutrophils (%) (Auto) 83.9 H 37.0-80.0 % Lymphocytes (%) (Auto) 7.3 L 10.0-50.0 % Monocytes (%) (Auto) 3.1 0.0-12.0 % Eosinophils (%) (Auto) 4.7 0.0-7.0 % Basophils (%) (Auto) 1.0 0.0-2.0 % Neutrophils # (Auto) 14.7 H 1.6-8.6 10 ^3/uL Lymphocytes # (Auto) 1.3 0.4-5.4 10 ^3/uL Monocytes # (Auto) 0.5 0-1.3 10 ^3/uL Eosinophils # (Auto) 0.8 0-0.8 10 ^3/uL Basophils # (Auto) 0.2 0-0.2 10 ^3/uL Nucleated Red Blood Cells 0.8 % Prothrombin Time 11.6 9.3-11.8 sec Prothrombin Time INR 1.11 0.9-1.15 Activated Partial Thromboplast Time 35.4 H 24.5-34.5 SEC Sodium Level 140 136-145 mmol/L Potassium Level 5.5 H 3.5-5.1 mmol/L Chloride Level 109 H 98-107 mmol/L Carbon Dioxide Level 27 20-31 mmol/L Anion Gap 4 L 5-15 Blood Urea Nitrogen 37 H 9-23 mg/dL Creatinine 1.22 H 0.550-1.02 mg/dL Glomerular Filtration Rate Calc 48 >90 mL/min BUN/Creatinine Ratio 30.3 H 10.0-20.0 Serum Glucose 150 H 74-106 mg/dL Lactic Acid Level 0.9 0.4-2.0 mmol/L Calcium Level 9.7 8.7-10.4 mg/dL Phosphorus Level 3.7 2.4-5.1 mg/dL Magnesium Level 2.5 1.6-2.6 mg/dL Total Bilirubin 0.6 0.2-1.0 mg/dL Aspartate Amino Transferase (AST) 13 13-40 U/L Alanine Aminotransferase (ALT) 10 7-40 U/L Alkaline Phosphatase 132 H 46-116 U/L Ammonia 26 11-32 umol/L Troponin I High Sensitivity 3 L </=34 ng/L Total Protein 7.6 5.7-8.2 g/dL Albumin 4.2 3.2-4.8 g/dL Thyroid Stimulating Hormone (TSH) 2.51 0.55-4.78 uIU/mL Assessment Acute kidney injury hemodynamically mediated Influenza B Grade 2 diastolic heart failure Pneumonia Sepsis Hyperkalemia Diabetes Agree with supportive care IV antibiotics Agree with diuretic therapy Strict Is&Os Avoid hypotension Pulmonology Plan discussed with: Patient ARTURO ELMORE MD Dec 24, 2024 13:23
[2024-12-24 13:28] LABS: Base Excess -2.4 mmol/L (-2.0-3.0)
[2024-12-24] MEDS: ENOXAPARIN SOD 120 MG/0.8 ML SYRINGE SC ONE (17:23)
[2024-12-24] MEDS ORDERED: ALBU108A5 IN (21:58)
[2024-12-24] MEDS ORDERED: OSEL75CA5 PO (21:58)
[2024-12-24] MEDS ORDERED: AZIT500T PO (21:58)
[2024-12-24] MEDS ORDERED: METH4PAK PO (21:58)
[2024-12-24] MEDS: cefTRIAXone 1GM/50ML D5W 50 ML IV SCH (22:00)
[2024-12-25] VITALS (12 sets, daily range): BP systolic 128–138; BP diastolic 63–86; PULSE 55–95; RESP 16–82; TEMP 97.6–98.8; O2SAT 97–100
[2024-12-25] MEDS: ENOXAPARIN SOD 120 MG/0.8 ML SYRINGE SC SCH (05:24)
[2024-12-25 05:37] LABS: Alanine Aminotransferase 15 U/L (7-40); Aspartate Aminotransferase 24 U/L (13-40); Bilirubin, Total 0.3 mg/dL (0.2-1.0); Calcium 9.5 mg/dL (8.7-10.4); Carbon Dioxide 23 mmol/L (20-31); Sodium 136 mmol/L (136-145); Total Protein 7.3 g/dL (5.7-8.2)
[2024-12-25 05:38] LABS: Alkaline Phosphatase 131 U/L (46-116)
[2024-12-25 05:39] LABS: Anion Gap 6 (5-15); BUN/Creatinine Ratio 23.5 (10.0-20.0); Blood Urea Nitrogen 38 mg/dL (9-23); Chloride 107 mmol/L (98-107); Glucose 244 mg/dL (74-106)
[2024-12-25 05:41] LABS: Potassium 5.9 mmol/L (3.5-5.1)
--- NOTE | 2024-12-25 06:11 | DVHINCON2 ---
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 She is on 3 liters of oxygen at home. She is positive influenza B and she has been on insulin, hydrochlorothiazide, amlodipine, glimepiride, lisinopril, Jardiance, and gabapentin. She is at home, taken care of by the family, morbidly obese, afebrile. Trachea is central and has been on BiPAP at this time. She is on 13/07 and now she is on 12/04 at this time. The last blood gases showed pH 7.24, pCO2 52, pO2 79 and that is on 13/07, so she is on 12/04 at this time ____ blood gas around 01:00 o'clock. Chest x-ray, congestive heart failure and possibility of pneumonia on right side and bilateral pleural effusions. She is on Zithromax, Rocephin, Tamiflu, ____ Lovenox. Close monitoring of the blood sugar. Solu-Medrol 40 IV b.i.d. in addition to the antibiotics as well as Tamiflu. ____ blood gas at 01:00 o'clock and call me with the results. PHYSICAL EXAMINATION: Diminished breath sounds on examination ____ 30%, 13/07. Blood pressure 110/70, heart rate is 78, O2 saturation 98% at this time. PLAN: Once the blood gases improved, hopefully, we can wean off the BiPAP and continue med-neb treatments and add Solu-Medrol 40 IV b.i.d. Stephane Light MD MA/RAMONE/DOMINGO TID: [id number] RECEIPT: [id number]
[2024-12-25] MEDS: SODIUM ZIRCONIUM CYCL 10 GM PAK PO ONE (06:44)
--- NOTE | 2024-12-25 07:04 | DVHDS2 ---
New Physician D'charge PN Admitting Diagnosis Admitting Diagnosis acute on chronic respiratory failure Discharge Diagnosis acute on chronic respiratory failure influenza B Operations or Procedures none Reason(s) For Hospitalization Surgery Hospital Course 69 F who comes to ER c/o SOB. SHe normally wears o2 3L NC at home but despite her baseline o2 she felt like she couldnt breathe. Her initial ABG revealed hypercapnic respiratory failure with elevated PCO2. She was admitted to the hospital and started on BIPAP and IV ABx ,nebs, and IV steroids. She was noted to test + for influenza B and this was also started on tamiflu BID. Pulmonary saw her and eventually hger respiratory status improved and she was taken off the bipap and placed on o2 via NC 3-4L her baseline. Her BCx were negative and overall she felt better and her condition improved. The CXR on admission showed increased interstitial markings however no consolidation was seen. She will be dc home today to continue her home o2 at baseline 3-4L and scripts for PO ABx and steroids as well and albuterol inhaler and tamiflu to complete the course for influenza. Herita to arrange for all outpt follow up and transport home. Treatment Plan Discharge Condition of Discharge Good Disposition Home with Health Services Discharge Instructions Diet: Cardiac 2g Na,low cholest Activity: No Restrictions, As Tolerated Medications: see med sheet Follow Up Care Follow Up/Referral: pcp Discharge Statement: "Patient was advised to return to the ER or call 911 if any headaches, dizziness, shortness of breath, chest pain, abdominal pain, bleeding, fevers, or worsening of medical condition. Patient was counseled about treatment plan, medications, possible side effects, patientverbalized understanding. All questions were answered to the best of my ability. This discharge took greater then 30 minutes in planning, reviewing documentation, counseling the patient, and discussing with other team members." JASIEL HAN MD Dec 25, 2024 07:04
[2024-12-25] MEDS: ALBUTEROL SULF 2.5 MG/0.5ML(0.5%) NEB SOLN NEB ONE (07:15)
[2024-12-25] MEDS ORDERED: ALBU0.084 NEB (08:05)
--- NOTE | 2024-12-25 09:00 | DVH ---
CHEST RADIOGRAPH Indication: pneumonia Technique: Single frontal view of the chest was obtained COMPARISON: XY CHEST XRAY 1 VIEW on DOS: 12/23/24, XY CHEST XRAY 1 VIEW on DOS: 08/20/24, XY CHEST PORT ABLE on DOS: 08/20/24, XY CHEST PORTABLE on DOS: 08/19/24, XY CHEST PORTABLE on DOS: 05/24/23 FINDINGS: Lines and Tubes: None Lungs: Low lung volumes. Pleura: No effusion. No pneumothorax. Cardiomediastinal contours: Unremarkable Bones: Unremarkable IMPRESSION: Low lung volumes.
== END 2024-12-25 13:45 | disposition home health service (06) | DRG 193 ==
LOC: ER 19:53 → EDBD 19:53 → EDUNIT# 19:53 → TELE 12-24 00:16 → TELE-CENTR 12-24 23:54
PROVIDERS: ADMIT Internal Medicine; ATTEND Internal Medicine
PROC: 5A09357 Assistance with Respiratory Ventilation, Less than 24 Consecutive Hours, Continuous Positive Airway Pressure (ICD-10-PCS; principal; 2024-12-24)
DX: J10.00 Influenza due to other identified influenza virus with unspecified type of pneumonia (principal); J96.22 Acute and chronic respiratory failure with hypercapnia; N17.9 Acute kidney failure, unspecified; I50.30 Unspecified diastolic (congestive) heart failure; I13.0 Hypertensive heart and chronic kidney disease with heart failure and stage 1 through stage 4 chronic kidney disease, or unspecified chronic kidney disease; J44.0 Chronic obstructive pulmonary disease with (acute) lower respiratory infection; E87.20 Acidosis, unspecified; Z68.41 Body mass index [BMI] 40.0-44.9, adult; N18.30 Chronic kidney disease, stage 3 unspecified; E87.5 Hyperkalemia; E11.22 Type 2 diabetes mellitus with diabetic chronic kidney disease; E66.01 Morbid (severe) obesity due to excess calories; E78.5 Hyperlipidemia, unspecified; I25.10 Atherosclerotic heart disease of native coronary artery without angina pectoris; G47.33 Obstructive sleep apnea (adult) (pediatric); F17.210 Nicotine dependence, cigarettes, uncomplicated; Z99.81 Dependence on supplemental oxygen; Z86.73 Personal history of transient ischemic attack (TIA), and cerebral infarction without residual deficits; Z74.01 Bed confinement status; Z79.84 Long term (current) use of oral hypoglycemic drugs; Z82.49 Family history of ischemic heart disease and other diseases of the circulatory system; Z83.2 Family history of diseases of the blood and blood-forming organs and certain disorders involving the immune mechanism; Z83.3 Family history of diabetes mellitus; Z87.440 Personal history of urinary (tract) infections
CPT/HCPCS: 36415; 36600; 70450; 71045; 80053; 80307; 81001; 82140; 82805; 82962; 83605; 83735; 84100; 84132; 84443; 84484; 85025; 85610; 85730; 87040; 87086; 87426; 87804; 93005; 93306; 93970; 94640; 94660; G0378; J1815; J2405